=== PATIENT | female | born 1930 | race Caucasian/White ===

== ENCOUNTER 2017-07-12 13:14 | Inpatient (IN) | payer MEDICARE ==
[~2017-07-12] VITALS: Ht 154.9 cm; Wt 73.8 kg
[2017-07-12 13:28] VITALS: BP 147/70; PULSE 60; RESP 16; TEMP 98.6; O2SAT 96
[2017-07-12] MEDS ORDERED: MONT10TA4 PO (13:38)
[2017-07-12] MEDS ORDERED: CLOP75TA PO (13:38)
[2017-07-12] MEDS ORDERED: PROB1CHW5 CHEW (13:38)
[2017-07-12] MEDS ORDERED: VITA1000 PO (13:38)
[2017-07-12] MEDS ORDERED: PANT40TA3 PO (13:38)
[2017-07-12] MEDS ORDERED: ATOR20TA15 PO (13:38)
[2017-07-12] MEDS ORDERED: METO25TA3 PO (13:38)
[2017-07-12] MEDS ORDERED: ASPI81CH CHEW (13:38)
[2017-07-12] MEDS ORDERED: HYDR25TA5 PO (13:38)
[2017-07-12] MEDS ORDERED: LEVO50TA4 PO (13:38)
[2017-07-12 13:45] VITALS: O2SAT 96
[2017-07-12] MEDS ORDERED: SODIUM CHLORID 0.9% 500 ML INJ 500 ML IV ONE (13:45)
--- NOTE | 2017-07-12 14:01 | RADRPT ---
EXAM DATE/TIME: 07/12/2017 13:47 [facility] COMPARISON: No previous studies available for comparison. INDICATIONS : Heart palpatations, syncopal episode, weakness, difficulty walking. MEDICAL HISTORY : Diverticulosis. Hypercholesterolemia. Gastroesophageal reflux disease. Card iac disorders.Thyroid disease. Myocardial infarction.CHF. CAD.Hypertension. Arthritis. SURGICAL HISTORY : Pacemaker. Appendectomy. Tonsillectomy. Cardiac cath w/ stent. ENCOUNTER: Initial ACUITY: 1 day PAIN SCORE: 0/10 LOCATION: chest FINDINGS: Pacer implant on the left. The lungs are clear. The heart is minimally enlarged. The pulmonary vascularity is normal. There is n o evidence for infiltrate or failure. The portion of the bony skeleton visualized is unremarkable. CONCLUSION: Compensated cardiomegaly otherwise negative . The portion of the bony skeleton visualized is unremarkable. Board Certified Radiologist. This report was verified electronically.
[2017-07-12 14:22] LABS: AUTOMATED NEUTROPHIL # 3.6 TH/MM3 (1.8-7.7); BASOPHIL % 0.4 % (0.0-2.0); EOSINOPHIL # 0.1 TH/MM3 (0-0.4); EOSINOPHIL % 2.8 % (0.0-4.0); HEMATOCRIT 42.5 % (35.0-46.0); HEMO FLAGS DIFF FINAL; LYMPH % 15.5 % (9.0-44.0); LYMPHOCYTE # 0.7 TH/MM3 (1.0-4.8); MEAN CELL VOLUME 92.1 FL (80.0-100.0); MEAN CORPUSCULAR HEMOGLOBIN 30.5 PG (27.0-34.0); MEAN CORPUSCULAR HGB CONC 33.2 % (32.0-36.0); MONO % 7.7 % (0.0-8.0); NEUT % 73.6 % (16.0-70.0); PLATELET COUNT 181 TH/MM3 (150-450); RED BLOOD COUNT 4.61 MIL/MM3 (4.00-5.30); RED CELL DISTRIBUTION WIDTH 13.5 % (11.6-17.2); WHITE BLOOD COUNT 4.8 TH/MM3 (4.0-11.0)
[2017-07-12 14:36] LABS: CHLORIDE 99 MEQ/L (98-107); POTASSIUM 3.5 MEQ/L (3.5-5.1); SODIUM (NA) 134 MEQ/L (136-145)
[2017-07-12 14:40] LABS: ANION GAP 9 MEQ/L (5-15); BLOOD UREA NITROGEN 13 MG/DL (7-18)
--- NOTE | 2017-07-12 14:40 | RADRPT ---
EXAM DATE/TIME: 07/12/2017 13:57 [facility] COMPARISON: No previous studies available for comparison. INDICATIONS : General weakness. Dizziness. RADIATION DOSE: 66.71 CTDIvol (mGy) MEDICAL HISTORY : Cardiovascular disease. SURGICAL HISTORY : None. ENCOUNTER: Initial ACUITY: 1 day PAIN SCALE: 0/10 LOCATION: cranial TECHNIQUE: Multiple contiguous axial images were obtained of the head. Using automated exposure control and adj ustment of the mA and/or kV according to patient size, radiation dose was kept as low as reasonably a chievable to obtain optimal diagnostic quality images. DICOM format image data is available electro nically for review and comparison. FINDINGS: CEREBRUM: The ventricles are normal for age. No evidence of midline shift, mass lesion, hemorrhage or acute in farction. No extra-axial fluid collections are seen. POSTERIOR FOSSA: The cerebellum and brainstem are intact. The 4th ventricle is midline. The cerebellopontine angle i s unremarkable. EXTRACRANIAL: The visualized portion of the orbits is intact. SKULL: The calvaria is intact. No evidence of skull fracture. CONCLUSION: No acute disease. Deven Andrea Jr., MD on July 12, 2017 at 14:28 Board Certified Radiologist. This report was verified electronically.
[2017-07-12 14:41] LABS: PROTHROMBIN TIME - PATIENT 11.4 SEC (9.8-11.6)
[2017-07-12 14:43] LABS: ALT (GPT) 21 U/L (10-53); AST (GOT) 16 U/L (15-37); GLOMERULAR FILTRATION RATE 88 ML/MIN (>89)
[2017-07-12 14:45] LABS: TOTAL BILIRUBIN ADULT 0.6 MG/DL (0.2-1.0)
[2017-07-12 14:46] LABS: ALKALINE PHOSPHATASE 76 U/L (45-117); CREATINE KINASE 94 U/L (26-192)
[2017-07-12] MEDS ORDERED: ASPIRIN 81 MG CHEW TAB CHEW ONE (15:00)
--- NOTE | 2017-07-12 15:08 | PD ---
HPI Chief Complaint: General Weakness Time Seen by Provider: 13:22 Travel History International Travel<30 days: No Contact w/Intl Traveler<30days: No Traveled to known affect area: No History of Present Illness HPI Patient is an 87-year-old female who comes in complaining of bilateral leg weakness. She says since getting up this morning she has felt as if both legs were going give out on her. She says she was experiencing some muscle cramps, so she at first attributed the symptoms to that, but she continues to feel the weakness. She says the weakness is in her hips and her knees. She denies falling or hitting her head. She denies chest pain or shortness of breath. She denies nausea or vomiting. She has extensive cardiac history with multiple stents. PFS Past Medical History Arthritis: Yes Cardiovascular Problems: Yes High Cholesterol: Yes Congestive Heart Failure: Yes Coronary Artery Disease: Yes Diminished Hearing: No Gastrointestinal Disorders: Yes (Divarticulosis) GERD: Yes Hypertension: Yes Myocardial Infarction: Yes Thyroid Disease: Yes Tetanus Vaccination: Unknown Influenza Vaccination: Yes ?: Not Past Surgical History Appendectomy: Yes Cardiac Surgery: Yes (stent placement, pacemaker) Pacemaker: Yes ([id number]) Tonsillectomy: Yes Social History Alcohol Use: Yes (rarely) Tobacco Use: No Substance Use: No Allergies-Medications (Allergen,Severity, Reaction): Coded Allergies: No Known Allergies (Unverified , 07/12/17) Reported Meds & Prescriptions Reported Meds & Active Scripts Active Reported Vitamin D-1000 (Cholecalciferol) 1,000 Unit Tab 1,000 Units PO DAILY Align (Lactobacillus Rhamnosus (GG)) 10.5 Mg Chew 10.5 Mg CHEW Aspirin 81 Mg Chew 81 Mg CHEW DAILY Atorvastatin (Atorvastatin Calcium) 20 Mg Tab 20 Mg PO HS Levothyroxine (Levothyroxine Sodium) 50 Mcg Tab 50 Mcg PO DAILY Montelukast (Montelukast Sodium) 10 Mg Tab 10 Mg PO HS Pantoprazole (Pantoprazole Sodium) 40 Mg Tab 40 Mg PO DAILY Clopidogrel (Clopidogrel Bisulfate) 75 Mg Tab 75 Mg PO DAILY Review of Systems Except as stated in HPI: all other systems reviewed are Neg General / Constitutional: No: Fever, Chills Eyes: No: Blurred Vision HENT: No: Headaches, Lightheadedness Cardiovascular: No: Chest Pain or Discomfort, Palpitations Respiratory: No: Shortness of Breath Gastrointestinal: No: Nausea, Vomiting Musculoskeletal: No: Edema, Pain Skin: No Rash, No Change in Pigmentation Neurologic: Positive: Weakness Physical Exam Narrative GENERAL: Awake and alert, in no acute distress. SKIN: Focused skin assessment warm/dry. HEAD: Atraumatic. Normocephalic. EYES: Pupils equal and round. No scleral icterus. ENT: Mucous membranes pink and moist. NECK: Trachea midline. No JVD. CARDIOVASCULAR: Regular rate and rhythm. No murmur appreciated. RESPIRATORY: No accessory muscle use. Clear to auscultation. Breath sounds equal bilaterally. GASTROINTESTINAL: Abdomen soft, non-tender, nondistended. MUSCULOSKELETAL: No obvious deformities. No clubbing. No cyanosis. No edema. NEUROLOGICAL: Awake and alert. No obvious cranial nerve deficits. Motor grossly within normal limits. Normal speech. PSYCHIATRIC: Appropriate mood and affect; insight and judgment normal. Data Data Last Documented VS Vital Signs Date Time Temp Pulse Resp B/P (MAP) Pulse Ox O2 Delivery O2 Flow Rate FiO2 07/12/17 15:47 59 16 165/83 (110) 96 07/12/17 13:28 98.6 07/12/17 06:30 Nasal Cannula 2.00 Orders Orders Complete Blood Count With Diff (07/12/17 13:32) Comprehensive Metabolic Panel (07/12/17 13:32) B-Type Natriuretic Peptide (07/12/17 13:32) Ckmb (Isoenzyme) Profile (07/12/17 13:32) Troponin I (07/12/17 13:32) Act Partial Throm Time (Ptt) (07/12/17 13:32) Prothrombin Time / Inr (Pt) (07/12/17 13:32) Urinalysis - C+S If Indicated (07/12/17 13:32) Chest, Single Ap (07/12/17 13:32) Ct Brain W/O Iv Contrast(Rout) (07/12/17 13:32) Ecg Monitoring (07/12/17 13:32) Iv Access Insert/Monitor (07/12/17 13:32) Oximetry (07/12/17 13:32) Sodium Chlorid 0.9% 500 Ml Inj (Ns 500 M (07/12/17 13:45) Aspirin Chew (Aspirin Chew) (07/12/17 15:00) Heparin Inj (Heparin Inj) (07/12/17 21:15) Heparin Inj (Heparin Inj) (07/12/17 21:15) Heparin-D5w 25,000 U/250 Ml (Heparin-D5w (07/12/17 15:15) Cbc No Diff, Includes Plts (07/15/17 06:00) Occult Blood (Hemoccult) Stool (07/12/17 15:01) Electrocardiogram (07/12/17 13:22) Admit To Inpatient (07/12/17 ) Vital Signs (Adult) AMBERLY.Q4H (07/12/17 16:00) Activity Bed Rest (07/12/17 16:00) Iron Assorter / Telemetry AMBERLY.Q8H (07/12/17 16:00) Inpatient Certification (07/12/17 ) Admit Order (Ed Use Only) (07/12/17 ) Labs Laboratory Tests Test 07/12/17 14:16 07/12/17 15:43 White Blood Count 4.8 TH/MM3 Red Blood Count 4.61 MIL/MM3 Hemoglobin 14.1 GM/DL Hematocrit 42.5 % Mean Corpuscular Volume 92.1 FL Mean Corpuscular Hemoglobin 30.5 PG Mean Corpuscular Hemoglobin Concent 33.2 % Red Cell Distribution Width 13.5 % Platelet Count 181 TH/MM3 Mean Platelet Volume 7.0 FL Neutrophils (%) (Auto) 73.6 % Lymphocytes (%) (Auto) 15.5 % Monocytes (%) (Auto) 7.7 % Eosinophils (%) (Auto) 2.8 % Basophils (%) (Auto) 0.4 % Neutrophils # (Auto) 3.6 TH/MM3 Lymphocytes # (Auto) 0.7 TH/MM3 Monocytes # (Auto) 0.4 TH/MM3 Eosinophils # (Auto) 0.1 TH/MM3 Basophils # (Auto) 0.0 TH/MM3 CBC Comment DIFF FINAL Differential Comment Prothrombin Time 11.4 SEC Prothromb Time International Ratio 1.0 RATIO Activated Partial Thromboplast Time 26.0 SEC Blood Urea Nitrogen 13 MG/DL Creatinine 0.64 MG/DL Random Glucose 121 MG/DL Total Protein 7.0 GM/DL Albumin 3.6 GM/DL Calcium Level 9.1 MG/DL Alkaline Phosphatase 76 U/L Aspartate Amino Transf (AST/SGOT) 16 U/L Alanine Aminotransferase (ALT/SGPT) 21 U/L Total Bilirubin 0.6 MG/DL Sodium Level 134 MEQ/L Potassium Level 3.5 MEQ/L Chloride Level 99 MEQ/L Carbon Dioxide Level 26.0 MEQ/L Anion Gap 9 MEQ/L Estimat Glomerular Filtration Rate 88 ML/MIN Total Creatine Kinase 94 U/L Troponin I 0.42 NG/ML B-Type Natriuretic Peptide 336 PG/ML Urine Color YELLOW Urine Turbidity CLEAR Urine pH 6.5 Urine Specific [place] 1.011 Urine Protein NEG mg/dL Urine Glucose (UA) NEG mg/dL Urine Ketones NEG mg/dL Urine Occult Blood TRACE Urine Nitrite NEG Urine Bilirubin NEG Urine Leukocyte Esterase MOD Urine RBC 0-3 /hpf Urine WBC 3-5 /hpf Urine Squamous Epithelial Cells 0-5 /hpf Urine Mucus OCC /lpf Microscopic Urinalysis Comment CULT NOT INDICATED MDM Medical Decision Making Medical Screen Exam Complete: Yes Emergency Medical Condition: Yes Interpretation(s) ECG shows a paced rhythm, no ST elevation or depression. Differential Diagnosis ACS versus electrolyte abnormality versus infection versus dehydration Narrative Course Patient is an 87-year-old female comes in complaining of weakness of both lower legs. Exam shows no focal weakness, no neurologic abnormalities. IV established, labs sent. Labs show elevation in her troponin to 0.42. Patient given aspirin and started on heparin. CT head performed shows no acute abnormalities. Chest x-ray shows no acute abnormalities. Patient will be admitted for further management. Diagnosis Primary Impression: NSTEMI (non-ST elevated myocardial infarction) Admitting Information Admitting Physician Requests: Admit Condition: Stable Ana Avitia MD Jul 12, 2017 15:08
[2017-07-12 15:47] VITALS: BP 165/83; PULSE 59; RESP 16; O2SAT 96
[2017-07-12 15:55] LABS: GLUCOSE,URINE NEG (NEG); KETONE, URINE NEG (NEG); NITRITE,URINE NEG (NEG); PH, URINE 6.5 (5.0-8.5)
[2017-07-12 15:58] LABS: BLOOD, URINE TRACE (NEG); URINE COLOR YELLOW (YELLW/STRAW)
[2017-07-12 16:00] LABS: COMMENT (UR) CULT NOT INDICATED; CULTURE IF INDICATED CULT NOT INDICATED; MUCUS URINE OCC /lpf (OCC); RBC, URINE 0-3 /hpf (0-3); SQUAMOUS EPITHELIAL CELL URINE 0-5 /hpf (0-5)
[2017-07-12] MEDS: HEPARIN-D5W 25,000 U/250 ML 250 ML IV PRN (17:04)
[2017-07-12 17:07] VITALS: BP 160/69; PULSE 60; RESP 16; O2SAT 94
--- NOTE | 2017-07-12 19:00 | HHI.HP ---
HPI [facility] Primary Care Physician Non-Staff Admission Diagnosis NSTEMI Diagnoses: Travel History International Travel<30 Days: No Contact w/Intl Traveler <30 Da: No Traveled to Known Affected Are: No History of Present Illness 87-year-old white female who was in her usual state of health until earlier today when she found to be confused more than normal. Patient is a poor historian herself, history obtained mainly from ER staff. "Patient is an 87-year -old female who comes in complaining of bilateral leg weakness. She says since getting up this morning she has felt as if both legs were going give out on her. She says she was experiencing some muscle cramps, so she at first attributed the symptoms to that, but she continues to feel the weakness. She says the weakness is in her hips and her knees. She denies falling or hitting her head. She denies chest pain or shortness of breath. She denies nausea or vomiting. She has extensive cardiac history with multiple stents." ER staff she was aphasic in ED and were concerned about possible stroke. Review of Systems Except as stated in HPI: all other systems reviewed are Neg Past Family Social History Past Surgical History unable to obtain Allergies: Coded Allergies: No Known Allergies (Unverified , 07/12/17) Family History unable to obtain given pt's poor insight Social History Pt lives by herself Physical Exam Vital Signs Vital Signs Date Time Temp Pulse Resp B/P (MAP) Pulse Ox O2 Delivery O2 Flow Rate FiO2 07/12/17 17:45 07/12/17 17:07 60 16 160/69 (99) 94 07/12/17 15:47 59 16 165/83 (110) 96 07/12/17 13:45 96 07/12/17 13:28 98.6 60 16 147/70 (95) 96 Physical Exam GENERAL: This is a well-nourished, well-developed patient, in no apparent distress. SKIN: No rashes, ecchymoses or lesions. Cool and dry. HEAD: Atraumatic. Normocephalic. No temporal or scalp tenderness. EYES: Pupils equal round and reactive. Extraocular motions intact. No scleral icterus. No injection or drainage. ENT: Nose without bleeding, purulent drainage or septal hematoma. Throat without erythema, tonsillar hypertrophy or exudate. Uvula midline. Airway patent. NECK: Trachea midline. No JVD CARDIOVASCULAR: Regular rate and rhythm without murmurs, gallops, or rubs. RESPIRATORY: Clear to auscultation. Breath sounds equal bilaterally. No wheezes , rales, or rhonchi. GASTROINTESTINAL: Abdomen soft, non-tender, nondistended. No hepato-splenomegaly , or palpable masses. No guarding. MUSCULOSKELETAL: Extremities without clubbing, cyanosis, or edema. No joint tenderness, effusion, or edema noted. NEUROLOGICAL: Awake and alert. Cranial nerves II through XII intact. Motor and sensory grossly within normal limits. Five out of 5 muscle strength in all muscle groups. Normal speech. intact finger to nose BL, - rombergs sign. Laboratory Laboratory Tests Test 07/12/17 14:16 07/12/17 15:43 White Blood Count 4.8 Red Blood Count 4.61 Hemoglobin 14.1 Hematocrit 42.5 Mean Corpuscular Volume 92.1 Mean Corpuscular Hemoglobin 30.5 Mean Corpuscular Hemoglobin Concent 33.2 Red Cell Distribution Width 13.5 Platelet Count 181 Mean Platelet Volume 7.0 Neutrophils (%) (Auto) 73.6 Lymphocytes (%) (Auto) 15.5 Monocytes (%) (Auto) 7.7 Eosinophils (%) (Auto) 2.8 Basophils (%) (Auto) 0.4 Neutrophils # (Auto) 3.6 Lymphocytes # (Auto) 0.7 Monocytes # (Auto) 0.4 Eosinophils # (Auto) 0.1 Basophils # (Auto) 0.0 CBC Comment DIFF FINAL Differential Comment Prothrombin Time 11.4 Prothromb Time International Ratio 1.0 Activated Partial Thromboplast Time 26.0 Blood Urea Nitrogen 13 Creatinine 0.64 Random Glucose 121 Total Protein 7.0 Albumin 3.6 Calcium Level 9.1 Alkaline Phosphatase 76 Aspartate Amino Transf (AST/SGOT) 16 Alanine Aminotransferase (ALT/SGPT) 21 Total Bilirubin 0.6 Sodium Level 134 Potassium Level 3.5 Chloride Level 99 Carbon Dioxide Level 26.0 Anion Gap 9 Estimat Glomerular Filtration Rate 88 Total Creatine Kinase 94 Troponin I 0.42 B-Type Natriuretic Peptide 336 Urine Color YELLOW Urine Turbidity CLEAR Urine pH 6.5 Urine Specific [place] 1.011 Urine Protein NEG Urine Glucose (UA) NEG Urine Ketones NEG Urine Occult Blood TRACE Urine Nitrite NEG Urine Bilirubin NEG Urine Leukocyte Esterase MOD Urine RBC 0-3 Urine WBC 3-5 Urine Squamous Epithelial Cells 0-5 Urine Mucus OCC Microscopic Urinalysis Comment CULT NOT INDICATED Result Diagram: 07/12/17 1416 07/12/17 1416 Imaging Last Impressions Head CT 07/12/17 1332 Signed Impressions: Service Date/Time: Wednesday, July 12, 2017 13:57 - CONCLUSION: No acute disease. Deven Andrea Jr., MD Chest X-Ray 07/12/171331 Signed Impressions: Service Date/Time: Wednesday, July 12, 2017 13:47 - CONCLUSION: Compensated cardiomegaly otherwise negative . The portion of the bony skeleton visualized is unremarkable. Board Certified Radiologist. This report was verified electronically. MD Drew VTE Risk Assessment Rajendra VTE Risk Assessment: Mod/High Risk (score >= 2) Caprini Risk Assessment Model Point Value = 1 Point Value = 2 Point Value = 3 Point Value = 5 Age 41-60 Minor surgery BMI > 25 kg/m2 Swollen legs Varicose veins or History of unexplained or recurrent spontaneous Oral contraceptives or hormone replacement Sepsis (< 1 month) Serious lung disease, including pneumonia (< 1 month) Abnormal pulmonary function Acute myocardial infarction Congestive heart failure (< 1 month) History of inflammatory bowel disease Medical patient at bed rest Age 61-74 Arthroscopic surgery Major open surgery (> 45 min) Laparoscopic surgery (> 45 min) Malignancy Confined to bed (> 72 hours) Immobilizing plaster cast Central venous access Age >= 75 History of VTE Family history of VTE Factor V Leiden Prothrombin [id number] Lupus anticoagulant Anticardiolipin antibodies Elevated serum homocysteine Heparin-induced thrombocytopenia Other congenital or acquired thrombophilia Stroke (< 1 month) Elective arthroplasty Hip, pelvis, or leg fracture Acute spinal cord injury (< 1 month) Prophylaxis Regimen Total Risk Factor Score Risk Level Prophylaxis Regimen 0-1 Low Early ambulation 2 Moderate Order ONE of the following: *Sequential Compression Device (SCD) *Heparin 5000 units SQ BID 3-4 Higher Order ONE of the following medications: *Heparin 5000 units SQ TID *Enoxaparin/Lovenox 40 mg SQ daily (WT < 150 kg, CrCl > 30 mL/min) *Enoxaparin/Lovenox 30 mg SQ daily (WT < 150 kg, CrCl > 10-29 mL/min) *Enoxaparin/Lovenox 30 mg SQ BID (WT < 150 kg, CrCl > 30 mL/min) AND/OR *Sequential Compression Device (SCD) 5 or more Highest Order ONE of the following medications: *Heparin 5000 units SQ TID (Preferred with Epidurals) *Enoxaparin/Lovenox 40 mg SQ daily (WT < 150 kg, CrCl > 30 mL/min) *Enoxaparin/Lovenox 30 mg SQ daily (WT < 150 kg, CrCl > 10-29 mL/min) *Enoxaparin/Lovenox 30 mg SQ BID (WT < 150 kg, CrCl > 30 mL/min) AND *Sequential Compression Device (SCD) Assessment and Plan Assessment and Plan Worsening confusion - We'll obtain lab work including TSH, B12, lites, magnesium. CT head is negative. Consulting speech therapy for swallow and cognition evaluation - Possible stroke etiology, giving aspirin, starting fall precautions, PT/OT/ST evaluation, engaging and permissive hypertension. CT head is negative. Plan for MRI and echocardiogram and carotid evaluation for tomorrow in a.m.. Continue home medications otherwise Physician Certification 2 Midnight Certification Type: Admission for Inpatient Services Order for Inpatient Services The services are ordered in accordance with Medicare regulations or non- Medicare payer requirements, as applicable. In the case of services not specified as inpatient-only, they are appropriately provided as inpatient services in accordance with the 2-midnight benchmark. Estimated LOS (days): 2 days is the estimated time the patient will need to remain in the hospital, assuming treatment plan goals are met and no additional complications. Post-Hospital Plan: Not yet determined Carroll De La Vega MD Jul 12, 2017 19:00
[2017-07-12] MEDS ORDERED: CLOPIDOGREL 75 MG TAB PO SCH (19:15)
[2017-07-12] MEDS ORDERED: HYDROCHLOROTHIAZIDE 25 MG TAB PO SCH (19:15)
--- NOTE | 2017-07-12 19:19 | RADRPT ---
EXAM DATE/TIME: 07/12/2017 19:09 [facility] COMPARISON: CT BRAIN W/O CONTRAST, July 12, 2017, 13:57. INDICATIONS : Stroke Alert- Left sided weakness. RADIATION DOSE: 32.30 CTDIvol (mGy) This report was called by Dr. Mak to Dr. Antunez at [phone] MEDICAL HISTORY : Cardiovascular disease. Hypertension. SURGICAL HISTORY : CABG ENCOUNTER: Initial ACUITY: 1 day PAIN SCALE: Non-responsive LOCATION: Left cranial TECHNIQUE: Multiple contiguous axial images were obtained of the head. Using automated exposure control and adj ustment of the mA and/or kV according to patient size, radiation dose was kept as low as reasonably a chievable to obtain optimal diagnostic quality images. DICOM format image data is available electro nically for review and comparison. FINDINGS: CEREBRUM: The ventricles are normal for age. No evidence of midline shift, mass lesion, hemorrhage or acute in farction. No extra-axial fluid collections are seen. POSTERIOR FOSSA: The cerebellum and brainstem are intact. The 4th ventricle is midline. The cerebellopontine angle i s unremarkable. EXTRACRANIAL: The visualized portion of the orbits is intact. SKULL: The calvaria is intact. No evidence of skull fracture. CONCLUSION: 1. No acute intracranial hemorrhage. 2. No significant change compared to the prior study. Adrian Mak MD on July 12, 2017 at 19:16 Board Certified Radiologist. This report was verified electronically.
[2017-07-12 19:26] LABS: I-STAT POTASSIUM 3.3 MMOL/L (3.5-4.9)
[2017-07-12] MEDS ORDERED: SODIUM CHLOR 0.9% 1000 ML INJ 1,000 ML IV SCH (19:27)
--- NOTE | 2017-07-12 19:41 | HHI.PR ---
Subjective Remarks Spoke w/ cardiology Dr. Smith, recommended pt be admitted to [facility] with cardiology consulted - relayed this to Dr. Avitia. Relayed to fellow Hospitalist [facility] team who agreed to have hospitalist at [facility] admit patient. Sometime after, I was notified that a stroke alert on the patient had been called since she began experiencing focal weakness there. To ensure the patient was going to be evaluated by hospitalist, I spoke Dr. Torrez and Clarissa Cutler, JAI (stationed at [facility]) to relay to Dr. Gómez, window shade installer, that patient needs to be fully evaluated by their team. They vocalized understanding. Objective Vital Signs Date Time Temp Pulse Resp B/P (MAP) Pulse Ox O2 Delivery O2 Flow Rate FiO2 07/12/17 17:45 07/12/17 17:07 60 16 160/69 (99) 94 07/12/17 15:47 59 16 165/83 (110) 96 07/12/17 13:45 96 07/12/17 13:28 98.6 60 16 147/70 (95) 96 I/O 07/11/17 07/11/17 07/11/17 07/12/17 07/12/17 07/12/17 06:59 14:59 22:59 06:59 14:59 22:59 Intake Total 500 ml Balance 500 ml Intake IV Total 500 ml Result Diagram: 07/12/17 1416 07/12/17 1416 Carroll De La Vega MD Jul 12, 2017 19:41
--- NOTE | 2017-07-12 19:48 | RADRPT ---
EXAM DATE/TIME: 07/12/2017 19:09 [facility] COMPARISON: No previous studies available for comparison. INDICATIONS : Stroke Alert- Left sided weakness. IV CONTRAST: 77 cc Omnipaque 350 (iohexol) IV RADIATION DOSE: 26.97 CTDIvol (mGy) ; Combined studies MEDICAL HISTORY : Cardiovascular disease. Hypertension. Myocardial infarction. SURGICAL HISTORY : CABG Appendectomy.Pacemaker. ENCOUNTER: Initial ACUITY: 1 day PAIN SCALE: Non-responsive LOCATION: Left cranial TECHNIQUE: Volumetric scanning was performed using a multi-row detector CT scanner. The data was post processed with a variety of visualization algorithms including full volume maximum intensity projection, multi -planar sliding thin slab reformation, curved planar reformation, and surface rendering techniques. Using automated exposure control and adjustment of the mA and/or kV according to patient size, radiat ion dose was kept as low as reasonably achievable to obtain optimal diagnostic quality images. DICO M format image data is available electronically for review and comparison. FINDINGS: There is excellent visualization of the major intracranial arteries out to the second-order branch ve ssels. There is no evidence for aneurysm, vessel truncation or stenosis, and no evidence for vascula r malformation. There is a hypoplastic A1 segment on the left. There is a patent right and left poste rior commuting artery. The basilar artery and posterior cerebral vessels are patent. CONCLUSION: Unremarkable CTA of the brain. Adrian Mak MD on July 12, 2017 at 19:41 Board Certified Radiologist. This report was verified electronically.
[2017-07-12 20:00] VITALS: BP 188/87; PULSE 60; RESP 25; TEMP 98; O2SAT 98
[2017-07-12 20:14] LABS: FREE T4 1.24 NG/DL (0.76-1.46); HDL CHOLESTEROL 37.9 MG/DL (40.0-60.0)
[2017-07-12 20:22] LABS: APTT (PATIENT) 31.1 SEC (24.3-30.1); PROTHROMBIN TIME - PATIENT 11.6 SEC (9.8-11.6)
--- NOTE | 2017-07-12 20:28 | RADRPT ---
EXAM DATE/TIME: 07/12/2017 19:09 [facility] COMPARISON: No previous studies available for comparison. INDICATIONS : Stroke Alert- Left sided weakness. IV CONTRAST: 80 cc Omnipaque 350 (iohexol) IV RADIATION DOSE: 26.97 CTDIvol (mGy) ; Combined studies MEDICAL HISTORY : Hypertension. Myocardial infarction. Hypertension. SURGICAL HISTORY : CABG Pacemaker.Appendectomy. ENCOUNTER: Initial ACUITY: 1 day PAIN SCALE: Non-responsive LOCATION: Left cranial Elevated flow velocities and ICA/CCA ratios have been found to correlate with increased degrees of vessel stenosis, calculated as percentage of diameter relative to a normal segment of distal ICA/CCA. TECHNIQUE: Volumetric scanning was performed using a multirow detector CT scanner. The data was post processed with a variety of visualization algorithms including full-volume maximum intensity projection, multip lanar sliding thin-slab reformation, curved-planar reformation, and surface-rendering techniques. Us ing automated exposure control and adjustment of the mA and/or kV according to patient size, radiatio n dose was kept as low as reasonably achievable to obtain optimal diagnostic quality images. DICOM f ormat image data is available electronically for review and comparison. FINDINGS: AORTIC ARCH: There is a three-vessel origin of the great vessels from the aorta. No evidence of ostial narrowing. RIGHT CAROTID: The common carotid artery is intact. There are calcified plaques at the proximal right internal carot id artery. However no focal or high-grade stenosis is seen. There is flow in the internal and externa l vessels. There is some tortuosity of the right internal carotid artery.. LEFT CAROTID: The common carotid artery is intact. There are some calcified plaques at the bifurcation. There is fl ow in the internal and external vessels. No focal high-grade stenosis. VERTEBRALS: The vertebral arteries have a symmetric diameter. No stenotic lesions are seen. CONCLUSION: 1. Calcified plaques are seen at both bifurcations. 2. No focal or significant stenosis involving the internal carotid arteries. Adrian Mak MD on July 12, 2017 at 20:24 Board Certified Radiologist. This report was verified electronically.
[2017-07-12] MEDS ORDERED: IOHEXOL 350 MG/ML 10 ML VIAL (for RAD DIAG) IVCONTRAST ONE (20:29)
[2017-07-12] MEDS ORDERED: METOPROLOL TARTRATE 25 MG TAB PO SCH (21:00)
[2017-07-12] MEDS ORDERED: HEPARIN SODIUM - IV 10,000 UNITS/10 ML VIAL IV PUSH PRN ×2 (21:15)
[2017-07-12 22:00] VITALS: PULSE 60
--- NOTE | 2017-07-12 22:20 | HHI.HP ---
HPI [facility] Primary Care Physician Non-Staff Admission Diagnosis NSTEMI Diagnoses: Travel History International Travel<30 Days: No Contact w/Intl Traveler <30 Da: No Traveled to Known Affected Are: No History of Present Illness woke up 3:00a.m all ok 10:30a.m weak in legs and had difficulty getting out of bed usually juist swing over without problem then within one hour had trouble more and more and got to hospital within one to 2 hrs no pain, no numbness no tingling but never improved fingersips on right hand always numb for [facility] no other weakness always short of breath- has pulmonary htn no other symptoms plane ride monday night- 4 hrs plane ride- never got up not on anticoagulation at home , only 81mg and plavix did have gi bleed while on anticoagulation and was thus off it - several years ago upon arrival to [address], nurse noted facial droop to left side and left LE weakness and called stroke alert daughter also noted some slurred speech and facial droop while in [place] still feelign worse with overall weakness but speech is normal Past Family Social History Past Medical History htn cad- 4 stents pulmonary htn asthma hypothyroidism non hodgkins lymphoma- diagnosed 10yrs ago, was treated with rotuxin x 1, and had follow up scans done and has small spots here and then but nothing big enough to treat Past Surgical History appendectomy at 19yo tonsilectomy at 3yo wedge resection of right lung lower left slaivary gland area mass that was removed- and thats how non hogdkins was diagnosed Allergies: Coded Allergies: No Known Allergies (Unverified , 07/12/17) Family History parkinsons, diabetes- father - in 70s alzeimers, macular degneration, htn- mother - passed at 92 Social History never smokes no etoh no drugs lives by herself [place], [place], still driving Physical Exam Vital Signs Vital Signs Date Time Temp Pulse Resp B/P (MAP) Pulse Ox O2 Delivery O2 Flow Rate FiO2 07/12/17 17:45 07/12/17 17:07 60 16 160/69 (99) 94 07/12/17 15:47 59 16 165/83 (110) 96 07/12/17 13:45 96 07/12/17 13:28 98.6 60 16 147/70 (95) 96 07/12/17 06:30 97 Nasal Cannula 2.00 Physical Exam GENERAL: This is a well-nourished, well-developed patient, in no apparent distress. SKIN: No rashes, ecchymoses or lesions. Cool and dry. HEAD: Atraumatic. Normocephalic. No temporal or scalp tenderness. EYES: Pupils equal round and reactive. Extraocular motions intact. No scleral icterus. No injection or drainage. ENT: Nose without bleeding, purulent drainage or septal hematoma. Throat without erythema, tonsillar hypertrophy or exudate. Uvula midline. Airway patent. NECK: Trachea midline. No JVD or lymphadenopathy. Supple, nontender, no meningeal signs. CARDIOVASCULAR: Regular rate and rhythm without murmurs, gallops, or rubs. RESPIRATORY: Clear to auscultation. Breath sounds equal bilaterally. No wheezes , rales, or rhonchi. GASTROINTESTINAL: Abdomen soft, non-tender, nondistended. No hepato-splenomegaly , or palpable masses. No guarding. MUSCULOSKELETAL: Extremities without clubbing, cyanosis, or edema. No joint tenderness, effusion, or edema noted. No calf tenderness. Negative Homans sign bilaterally. NEUROLOGICAL: Awake and alert. Cranial nerves II through XII intact. Motor and sensory grossly within normal limits. Five out of 5 muscle strength in all muscle groups. Normal speech. Laboratory Laboratory Tests Test 07/12/17 14:16 07/12/17 15:43 07/12/17 19:06 07/12/17 19:10 White Blood Count 4.8 Red Blood Count 4.61 Hemoglobin 14.1 Hematocrit 42.5 Mean Corpuscular Volume 92.1 Mean Corpuscular Hemoglobin 30.5 Mean Corpuscular Hemoglobin Concent 33.2 Red Cell Distribution Width 13.5 Platelet Count 181 Mean Platelet Volume 7.0 Neutrophils (%) (Auto) 73.6 Lymphocytes (%) (Auto) 15.5 Monocytes (%) (Auto) 7.7 Eosinophils (%) (Auto) 2.8 Basophils (%) (Auto) 0.4 Neutrophils # (Auto) 3.6 Lymphocytes # (Auto) 0.7 Monocytes # (Auto) 0.4 Eosinophils # (Auto) 0.1 Basophils # (Auto) 0.0 CBC Comment DIFF FINAL Differential Comment Prothrombin Time 11.4 11.6 Prothromb Time International Ratio 1.0 1.0 Activated Partial Thromboplast Time 26.0 31.1 Blood Urea Nitrogen 13 Creatinine 0.64 Random Glucose 121 Total Protein 7.0 Albumin 3.6 Calcium Level 9.1 Alkaline Phosphatase 76 Aspartate Amino Transf (AST/SGOT) 16 Alanine Aminotransferase (ALT/SGPT) 21 Total Bilirubin 0.6 Sodium Level 134 Potassium Level 3.5 Chloride Level 99 Carbon Dioxide Level 26.0 Anion Gap 9 Estimat Glomerular Filtration Rate 88 Total Creatine Kinase 94 Troponin I 0.42 B-Type Natriuretic Peptide 336 Urine Color YELLOW Urine Turbidity CLEAR Urine pH 6.5 Urine Specific Reinbeck 1.011 Urine Protein NEG Urine Glucose (UA) NEG Urine Ketones NEG Urine Occult Blood TRACE Urine Nitrite NEG Urine Bilirubin NEG Urine Leukocyte Esterase MOD Urine RBC 0-3 Urine WBC 3-5 Urine Squamous Epithelial Cells 0-5 Urine Mucus OCC Microscopic Urinalysis Comment CULT NOT INDICATED Bedside Hemoglobin 13.3 Bedside Hematocrit 39.0 Erythrocyte Sedimentation Rate 7 Bedside Sodium 134 Bedside Potassium 3.3 Bedside Chloride 98 Bedside Blood Urea Nitrogen 10 Bedside Creatinine 0.6 Bedside Glucose 99 Triglycerides Level 112 Cholesterol Level 84 LDL Cholesterol 24 HDL Cholesterol 37.9 Cholesterol/HDL Ratio 2.21 Free Thyroxine 1.24 Thyroid Stimulating Hormone 3rd Gen 1.610 Result Diagram: 07/12/17141507/12/171415 Caprini VTE Risk Assessment Caprini VTE Risk Assessment: Mod/High Risk (score >= 2) Caprini Risk Assessment Model Point Value = 1 Point Value = 2 Point Value = 3 Point Value = 5 Age 41-60 Minor surgery BMI > 25 kg/m2 Swollen legs Varicose veins or History of unexplained or recurrent spontaneous Oral contraceptives or hormone replacement Sepsis (< 1 month) Serious lung disease, including pneumonia (< 1 month) Abnormal pulmonary function Acute myocardial infarction Congestive heart failure (< 1 month) History of inflammatory bowel disease Medical patient at bed rest Age 61-74 Arthroscopic surgery Major open surgery (> 45 min) Laparoscopic surgery (> 45 min) Malignancy Confined to bed (> 72 hours) Immobilizing plaster cast Central venous access Age >= 75 History of VTE Family history of VTE Factor V Leiden Prothrombin [id number] Lupus anticoagulant Anticardiolipin antibodies Elevated serum homocysteine Heparin-induced thrombocytopenia Other congenital or acquired thrombophilia Stroke (< 1 month) Elective arthroplasty Hip, pelvis, or leg fracture Acute spinal cord injury (< 1 month) Prophylaxis Regimen Total Risk Factor Score Risk Level Prophylaxis Regimen 0-1 Low Early ambulation 2 Moderate Order ONE of the following: *Sequential Compression Device (SCD) *Heparin 5000 units SQ BID 3-4 Higher Order ONE of the following medications: *Heparin 5000 units SQ TID *Enoxaparin/Lovenox 40 mg SQ daily (WT < 150 kg, CrCl > 30 mL/min) *Enoxaparin/Lovenox 30 mg SQ daily (WT < 150 kg, CrCl > 10-29 mL/min) *Enoxaparin/Lovenox 30 mg SQ BID (WT < 150 kg, CrCl > 30 mL/min) AND/OR *Sequential Compression Device (SCD) 5 or more Highest Order ONE of the following medications: *Heparin 5000 units SQ TID (Preferred with Epidurals) *Enoxaparin/Lovenox 40 mg SQ daily (WT < 150 kg, CrCl > 30 mL/min) *Enoxaparin/Lovenox 30 mg SQ daily (WT < 150 kg, CrCl > 10-29 mL/min) *Enoxaparin/Lovenox 30 mg SQ BID (WT < 150 kg, CrCl > 30 mL/min) AND *Sequential Compression Device (SCD) Assessment and Plan Assessment and Plan CVA - etiology- PFO with DVT vs Afib vs cholesterol elevated troponin- no chest pains; r/o PE recent ptrolonged travel- r/o DVT and PE hx of pulmonary hypertension Physician Certification Order for Inpatient Services The services are ordered in accordance with Medicare regulations or non- Medicare payer requirements, as applicable. In the case of services not specified as inpatient-only, they are appropriately provided as inpatient services in accordance with the 2-midnight benchmark. days is the estimated time the patient will need to remain in the hospital, assuming treatment plan goals are met and no additional complications. Yasmeen Gómez MD Jul 12, 2017 22:20
[2017-07-12] MEDS ORDERED: RESP: ALBUTEROL 2.5 MG/IPRATROPIUM 0.5 MG NEB (PRN) NEB (22:30)
[2017-07-12 23:23] LABS: APTT (PATIENT) 44.1 SEC (24.3-30.1)
--- NOTE | 2017-07-12 23:43 | RADRPT ---
EXAM DATE/TIME: 07/12/2017 23:03 [facility] COMPARISON: No previous studies available for comparison. INDICATIONS : Bilateral leg swelling. MEDICAL HISTORY : Myocardial infarction. Congestive heart failure. Hypercholesterolemia. Thyroid disease. Coronary maulik ry disease. Hypertension. Diverticulosis. Gastroesophageal reflux disease. Arthritis. SURGICAL HISTORY : Tonsillectomy.Pacemaker. Appendectomy. ENCOUNTER: Initial ACUITY: 1 day PAIN SCORE: 0/10 LOCATION: Bilateral legs. TECHNIQUE: Venous ultrasound of the left and right leg was performed from the inguinal ligament to the proximal calf. Real-time, color Doppler and spectral tracing, compression and augmentation techniques were us ed. FINDINGS: RIGHT LEG: There is normal compressibility of the deep venous system from the inguinal region to the proximal ca lf. No echogenic clot is seen in the lumen of the common femoral, femoral, popliteal, and posterior tibial veins. There is a normal response of the venous system to proximal and distal augmentation an d respiration. LEFT LEG: There is normal compressibility of the deep venous system from the inguinal region to the proximal ca lf. No echogenic clot is seen in the lumen of the common femoral, femoral, popliteal, and posterior tibial veins. There is a normal response of the venous system to proximal and distal augmentation an d respiration. There is an oblong hypoechoic mass/collection in the left popliteal space consistent w ith small Crane's cyst CONCLUSION: Left knee Crane's cyst. No evidence of DVT in either leg Byron Enriquez MD on July 12, 2017 at 23:41 Board Certified Radiologist. This report was verified electronically.
--- NOTE | 2017-07-12 23:53 | MB ---
cc: YULY KURTZ DATE OF CONSULTATION: 07/12/2017 HISTORY OF PRESENT ILLNESS: The patient is an 87 year-old woman with a history of hypertension, hypercholesterolemia, five cardiac stents, pacemaker, pulmonary hypertension, lymphoma, not currently being treated but she does have a lump on the right side of her neck and in the axillary region also she tells me, she has some lymphoma there but no where else that she knows of. She has had some antibiotics or chemo in the past she tells me. Nevertheless she was admitted today with an DC, non STEMI. She was evidently found to be confused more than normal. She came in with bilateral leg weakness, got up, both legs were giving out on her. Weakness in her hips and knees, said to be a normal exam. She was taking a baby aspirin at home. Motor was noted to be "grossly within normal limits with normal speech." Sometime down in [facility], the daughter noted she had a left facial droop. She noticed both of her legs felt very heavy and she came into the hospital this morning. She didn't notice that she was weak on the left side, but still doesn't at this time, however. REVIEW OF SYSTEMS: She denies any diabetes, A-fib, Coumadin, renal, hepatic disease, thyroid disease, lupus, ulcer, known seizure, prior strokes. SOCIAL HISTORY: She is not a smoker or drinker, lives by herself. FAMILY HISTORY: Negative for cancer, seizure or stroke. MEDICATIONS AT HOME: 1. She takes vitamin D. 2. Lactobacillus. 3. Hydrochlorothiazide. 4. 81 of aspirin. 5. Atorvastatin 6. Thyroid medicine. 7. Montelukast. 8. Metoprolol. 9. Protonix. 10. Plavix 75 milligrams a day. PHYSICAL EXAMINATION: Sinus rhythm, afebrile. 160/69, 16, 60. There were no carotid bruits. Heart: Regular rhythm. I did not detect a murmur. Pupils were equal, visual barnes full, extraocular movements intact without nystagmus. There is a miniaml left facial droop when she moves, fairly symmetrically, normal sensation. Tongue was midline. There is a positive left shift. She had normal strength in right upper and lower extremities. Left upper extremity is at 5-/5. Left lower extremity, straight leg raising is weak about a 4+/5. Tibialis anterior, leg extensions and holding her knee up is 5/5. Toe was equivocal on the left, downgoing on the right. DTRs are absent throughout. Pinprick was intact throughout. Double simultaneous stimuli sensation was intact in the bilateral lower extremities. Speech is fluent, she is not aphasic. LABORATORY DATA: CBC is normal. UA is negative. Moderate leuko-esterase. Basic metabolic profile has been normal. LFTs normal. Troponin 0.42. Total protein, albumin normal. Coags normal. IMAGING STUDIES: CT scan of the brain is negative, here at the stroke alert and was negative earlier today. Chest x-ray: Negative. MEDICATIONS The patient has been on heparin for about two hours before I was called for the stroke alert. IV heparin. She is on Synthroid here, Singulair, Plavix, hydrodiuril, Protonix. She got 324 of aspirin. I was told she did not get any bolus of heparin. IMPRESSION Some left-sided weakness. I am not sure if her symptoms did not start this morning, however, they have been somewhat slowly getting worse. Will see what her PTT is as far as getting TPA, but I cannot be certain that these symptoms did not start this morning when she woke up. ADDENDUM I did talk to the patient's daughter and she says that at about 11 o'clock this morning she noticed some left facial droop so this has been going on least 8 hours, so she is not going to be a t-PA candidate. Her current NIH Stroke Scale is a 5. MD JACKIE Swift/DULCE /7:22 PM /9:36 AM
[2017-07-13] VITALS (8 sets, daily range): BP systolic 138–160; BP diastolic 70–96; PULSE 60–62; RESP 20–29; TEMP 97.5–98.7; O2SAT 97–99
--- NOTE | 2017-07-13 07:41 | HHI.PR ---
Subjective Remarks feels better Objective Vital Signs Date Time Temp Pulse Resp B/P (MAP) Pulse Ox O2 Delivery O2 Flow Rate FiO2 07/13/17 04:00 98.0 60 20 149/70 (96) 98 07/13/17 02:00 60 07/13/17 00:00 97.6 60 25 148/96 (113) 99 07/13/17 00:00 60 07/12/17 22:00 60 07/12/17 20:00 98.0 60 25 188/87 (120) 98 07/12/17 17:45 07/12/17 17:07 60 16 160/69 (99) 94 07/12/17 15:47 59 16 165/83 (110) 96 07/12/17 13:45 96 07/12/17 13:28 98.6 60 16 147/70 (95) 96 I/O 07/12/17 07/12/17 07/12/17 07/13/17 07/13/17 07/13/17 07:00 15:00 23:00 07:00 15:00 23:00 Intake Total 500 ml Balance 500 ml Intake IV Total 500 ml # Voids 3 Result Diagram: 07/12/17 1416 07/12/17 1416 Objective Remarks vff face sym nle lue and near nl lle on bedpan nl speech Assessment and Plan Assessment and Plan im[p on hep ctax2 nl ct neg fu echo and holter ldl nl will dw cards suspect small cardioembolism [place] was already on plavix hx 5 stents Crow Antunez MD Jul 13, 2017 07:41
[2017-07-13] MEDS: CHOLECALCIFEROL (VIT D3) 1000 UNIT TAB PO SCH (09:00)
[2017-07-13 09:01] LABS: APTT (PATIENT) 55.1 SEC (24.3-30.1)
--- NOTE | 2017-07-13 10:05 | OTSOAPIP ---
TIME SESSION COMPLETED: 10:04 TREATMENT TIME: 0 MINS. CHART REVIEWED. RECEIVED ORDERS FOR OT CONSULT FROM DR. VILLANUEVA. PT HAS SINCE TRANSFERRED TO INTENSIVE CARE WITH A CHANGE IN STATUS. WILL REQUIRE NEW ORDERS FOR OT WHEN STABLE. WILL SIGN OFF. Therapist: ZARA GORDON OT/L Signature on file
[2017-07-13] MEDS: SODIUM CHLOR 0.9% 1000 ML INJ 1,000 ML IV SCH (12:00)
--- NOTE | 2017-07-13 12:44 | ECHRPT ---
Indication: CONCLUSIONS Normal left ventricular size. Wall thickness is normal. The left ventricular systolic function is low normal with an estimated ejection fraction in the rang e of 50- 55%. Moderate mitral valve regurgitation. Severe thickening of the mitral valve leaflets. Mitral annular calcification is present. Aortic valve sclerosis is present. There is mild tricuspid valve regurgitation. There is estimated severe pulmonary hypertension present ( > 70 mmHg). BP: 149 / 70 HR: 60 Rhythm: MEASUREMENTS (Male / Female) Normal Values Technical Quality: 2D ECHO LV Diastolic Diameter PLAX 4.8 cm 4.2 - 5.9 / 3.9 - 5.3 cm LV Systolic Diameter PLAX 3.7 cm IVS Diastolic Thickness 1.2 cm 0.6 - 1.0 / 0.6 - 0.9 cm LVPW Diastolic Thickness 0.8 cm 0.6 - 1.0 / 0.6 - 0.9 cm LV Relative Wall Thickness 0.4 RV Internal Dim ED PLAX 2.2 cm LA Systolic Diameter LX 3.5 cm 3.0 - 4.0 / 2.7 - 3.8 cm M-MODE Aortic Root Diameter MM 3.1 cm AV Cusp Separation MM 1.7 cm DOPPLER AV Peak Velocity 177.0 cm/s AV Peak Gradient 12.5 mmHg AV Mean Gradient 7.0 mmHg AV Velocity Time Integral 45.6 cm LVOT Peak Velocity 102.0 cm/s LVOT Peak Gradient 4.2 mmHg LVOT Velocity Time Integral 25.7 cm MV Peak Velocity 138.0 cm/s MV Peak Gradient 7.6 mmHg MV Mean Velocity 74.4 cm/s MV Mean Gradient 3.0 mmHg MR Peak Velocity 566.0 cm/s MR Peak Gradient 128.1 mmHg Mitral E Point Velocity 110.0 cm/s Mitral A Point Velocity 112.0 cm/s Mitral E to A Ratio 1.0 LV E' Lateral Velocity 5.3 cm/s Mitral E to LV E' Lateral Ratio 20.9 LV E' Septal Velocity 5.0 cm/s Mitral E to LV E' Septal Ratio 22.0 TR Peak Velocity 418.0 cm/s TR Peak Gradient 69.9 mmHg Right Atrial Pressure 5.0 mmHg Pulmonary Artery Systolic Pressu 74.9 mmHg Right Ventricular Systolic Press 74.9 mmHg FINDINGS LEFT VENTRICLE Normal left ventricular size. Wall thickness is normal. The left ventricular systolic function is low normal with an estimated ejection fraction in the rang e of 50- 55%. RIGHT VENTRICLE Normal right ventricular size and systolic function. LEFT ATRIUM The left atrial size is normal. RIGHT ATRIUM The right atrial size is normal. ATRIAL SEPTUM Normal atrial septal thickness without atrial level shunting by limited color doppler interrogation. AORTA The aortic root and proximal ascending aorta are normal in size on limited imaging. MITRAL VALVE Moderate mitral valve regurgitation. Severe thickening of the mitral valve leaflets. Mitral annular calcification is present. AORTIC VALVE Aortic valve sclerosis is present. TRICUSPID VALVE There is mild tricuspid valve regurgitation. There is estimated severe pulmonary hypertension present ( > 70 mmHg). PULMONARY VALVE No pulmonary valve regurgitation or stenosis. VESSELS The inferior vena cava is normal in size. PERICARDIUM No pericardial effusion. Amos Hennessy MD, FACC (Electronically Signed) Final Date:13 July 2017 12:43
[2017-07-13] MEDS ORDERED: IOHEXOL 350 MG/ML 10 ML VIAL (for RAD DIAG) IVCONTRAST ONE (12:55)
--- NOTE | 2017-07-13 13:10 | RADRPT ---
EXAM DATE/TIME: 07/13/2017 12:39 [facility] COMPARISON: CTA BRAIN W 3D RECON, July 12, 2017, 19:09. INDICATIONS : Chest pain. IV CONTRAST: 70 cc Omnipaque 350 (iohexol) IV RADIATION DOSE: 16.82 CTDIvol (mGy) MEDICAL HISTORY : Cardiovascular disease. Hypertension. Pulmonary hypertension, lymphoma SURGICAL HISTORY : Appendectomy. Coronary stents ENCOUNTER: Initial ACUITY: 1 day PAIN SCALE: 3/10 LOCATION: Bilateral chest TECHNIQUE: Volumetric scanning of the chest was performed using a pulmonary embolism protocol MIP images were re constructed. Using automated exposure control and adjustment of the mA and/or kV according to patien t size, radiation dose was kept as low as reasonably achievable to obtain optimal diagnostic quality images. DICOM format image data is available electronically for review and comparison. Follow-up recommendations for detected pulmonary nodules are based at a minimum on nodule size and pa tient risk factors according to Fleischner Society Guidelines. FINDINGS: The examination is of good diagnostic quality. No pulmonary embolus is identified. The heart is enlarged. There is atherosclerotic plaquing and coronary arteries. No significant hilar or mediastinal adenopathy is seen. There are multiple abnormal nodes seen within the right axilla. There are nodes measuring up to 2.6 x 1.8 cm. This is highly suspicious for malignancy. The pulmonary parenchyma demonstrates a small amount of fluid loculated in the minor fissure on the r ight. There is minimal basilar effusion on the right. There is scarring in both lower lobes. Note is made of some pulmonary sutures within the right middle lobe. The visualized bony structures are grossly intact. CONCLUSION: 1. No pulmonary embolus is identified. 2. There are multiple enlarged, abnormal nodes seen within the right axilla suspicious for malignancy . These are abnormal in both size and number. 3. Small amount of fluid loculated in the fissure on the right. 4. COPD changes. Francis Billingsley MD on July 13, 2017 at 13:07 Board Certified Radiologist. This report was verified electronically.
--- NOTE | 2017-07-13 13:52 | EKG ---
Date Performed: 07/12/2017 Time Performed: 13:22:04 PTAGE: 87 years EKG: ELECTRONIC ATRIAL PACEMAKER LEFT AXIS DEVIATION PATTERN CONSISTENT WITH PULMONARY DISEASE A BNORMAL ECG Compared to PREVIOUS TRACING , the left axis deviation is new and the paced atrial rhythm is new but otherwise no serial change. PREVIOUS TRACIN06/05/2002 10.47 DOCTOR: Michelle Stearns Interpretating Date/Time 07/13/2017 13:50:53
--- NOTE | 2017-07-13 13:52 | EKG ---
Date Performed: 07/12/2017 Time Performed: 18:51:20 PTAGE: 87 years EKG: Sinus rhythm Leftward axis Borderline ECG Compared to PREVIOUS TRACING , the atrial rhythm is probably paced and there has been no significant serial change since the prior tracing. PREVIOUS TRACIN07/12/2017 13.22 DOCTOR: Michelle Stearns Interpretating Date/Time 07/13/2017 13:51:42
--- NOTE | 2017-07-13 16:21 | MB ---
cc: GLENYS LOMBARDI DATE OF CONSULTATION: 07/13/2017 REASON FOR CONSULTATION: Ms. Andersen is an 87 white female who developed lower extremity weakness yesterday morning. She went to the hospital and was subsequently noted to have left facial droop and left lower extremity weakness. She also had slurred speech yesterday. She was diagnosed with acute stroke. She has history coronary artery disease and underwent stenting of the left circumflex artery and left anterior descending carotid artery which was preformed in November 2011 using <<2:05>> MCV drug-eluting stents. The patient has been on aspirin and clopidogrel since that time. PAST MEDICAL HISTORY: The past medical history is positive for coronary disease as Above. Hypertension Dyslipidemia COPD GI bleeding. Irritable bowel. Hypothyroid disease. Lymphoma Peptic ulcer disease Pulmonary nodule PAST SURGICAL HISTORY 8 History of appendectomy cataract surgery partial lung segmental resection. Pacemaker placement for complete heart block Thoracotomy. MEDICATIONS AT HOME Include 1. Plavix. 2. Baby aspirin. 3. Protonix. 4. Metoprolol 5. <<4:34>> 6. Atorvastatin. 7. Hydrochlorothiazide. 8. lactobacillus. 9. Vitamin D. ALLERGIES None. SOCIAL HISTORY The patient does not smoke. She does not drink alcohol excessively. ILLNESSES Negative for heart disease. Systems otherwise negative. PHYSICAL EXAMINATION Blood pressure 138/74, pulse 60 and regular. HEAD, EYES, EARS, NOSE, AND THROAT: Negative. NECK: No bruits. LUNGS: Clear. HEART: Regular with no murmur, gallop or rub. No bruits. EXTREMITIES: Without edema. Pulses noted grossly. Marked left lower extremity weakness. EKG was reviewed and showed the system was removed and atrial pacing left axis, no acute changes. LABORATORY DATA Hemoglobin 14.1, sodium 30.3. Creatinine 0.6. CK 88 and 83, troponin 0.78 and 0.72, LDL 24, HDL <<6:59>> . Thyroid stimulating hormone 1.6. Neck CT with no stenosis of carotid arteries. Head CT with no acute disease. Echocardiogram showed preserved left systolic function with an ejection fraction of 50-55%, moderate mitral regurgitation. Mitral annular classification, aortic sclerosis without stenosis and mild tricuspid vegetation with severe pulmonary hypertension with pulmonary artery pressure over 70 mmHg. DIAGNOSIS 1. CVA with to develop troponin is possible [id number] myocardial function. 2. Coronary disease. History of coronary stenting. 3. Preserved left ventricular systolic function. 4. Severe pulmonary hypertension 5. Asthma 6. Hypertension 7. Dyslipidemia. DISPOSITION Mrs. Andersen will be monitored on telemetry. Her echocardiogram shows preserved left upper systolic function and no segmental wall motion abnormalities. Her troponin is not trending, At this time there is no clear evidence of myocardial infarction. Her EKG shows no acute changes. She has not had any angina or heart failure symptoms. I recommended we obtain a VQ scan to evaluated for pulmonary and she recently had a prolonged travel. She developed likely embolic stroke while on aspirin and clopidogrel. There is no evidence of atrial fibrillation at this time. Should be monitored on telemetry. Cardiac stents were placed in 2011. If recommended by neurology we can discontinue clopidogrel, continue aspirin and start her on warfarin. She is planning to travel back to [place] within two weeks. She will need to follow up with her lan specialist in [place] shortly after arrival. MD CAPRICE Hneriquez/jose guadalupe /12:58 PM /3:22 PM
[2017-07-13] MEDS: HEPARIN-D5W 25,000 U/250 ML 250 ML IV PRN (17:05)
--- NOTE | 2017-07-13 18:27 | HHI.PR ---
Subjective Remarks The patient is awake - family at bedside Denies cp/sob denies fevers or chills Family states patient's left side is slightly weak. BP elevated into the 160's systolic Objective Vitals Vital Signs Date Time Temp Pulse Resp B/P (MAP) Pulse Ox O2 Delivery O2 Flow Rate FiO2 07/13/17 16:00 97.7 60 20 154/70 (98) 97 07/13/17 12:00 98.7 60 21 160/92 (114) 99 07/13/17 08:00 97.5 60 29 138/74 (95) 98 07/13/17 07:00 98 Room Air 07/13/17 04:00 98.0 60 20 149/70 (96) 98 07/13/17 02:00 60 07/13/17 00:00 97.6 60 25 148/96 (113) 99 07/13/17 00:00 60 07/12/17 22:00 60 07/12/17 20:00 98.0 60 25 188/87 (120) 98 I/O 07/12/17 07/12/17 07/12/17 07/13/17 07/13/17 07/13/17 06:59 14:59 22:59 06:59 14:59 22:59 Intake Total 500 ml Balance 500 ml Intake IV Total 500 ml # Voids 3 Result Diagram: 07/12/17 1416 07/12/17 [address] Angiography 07/13/17 0000 Signed Impressions: Service Date/Time: July 12:39 - CONCLUSION: 1. No pulmonary embolus is identified. 2. There are multiple enlarged, abnormal nodes seen within the right axilla suspicious for malignancy. These are abnormal in both size and number. 3. Small amount of fluid loculated in the fissure on the right. 4. COPD changes. Francis Billingsley MD Head CT [id number]/12/171331 Signed Impressions: Service Date/Time: Wednesday, July 12, 2017 13:57 - CONCLUSION: No acute disease. Deven Andrea Jr., MD Chest X-Ray [id number]/12/[id number] Signed Impressions: Service Date/Time: Wednesday, July 12, 2017 13:47 - CONCLUSION: Compensated cardiomegaly otherwise negative . The portion of the bony skeleton visualized is unremarkable. Board Certified Radiologist. This report was verified electronically. Neck CTA 07/12/17 0000 Signed Impressions: Service Date/Time: Wednesday, July 12, 2017 19:09 - CONCLUSION: 1. Calcified plaques are seen at both bifurcations. 2. No focal or significant stenosis involving the internal carotid arteries. Adrian Mak MD Lower Extremity Ultrasound 07/12/17 0000 Signed Impressions: Service Date/Time: Wednesday, July 12, 2017 23:03 - CONCLUSION: Left knee Crane's cyst. No evidence of DVT in either leg Byron Enriquez MD Head CTA 07/12/17 0000 Signed Impressions: Service Date/Time: Wednesday, July 12, 2017 19:09 - CONCLUSION: Unremarkable CTA of the brain. Adrian Mak MD Objective Remarks AAOx3 - awake and alert - follows commands NAD S1S2 RRR left facial droop, muscle strength is 4/5 in left upper and left lower extremity and 5/5 in right upper and lower extremity. There are no sensory abnormalities. Abdomen is soft, nontender nondistended. Medications and IVs Current Medications Medications (Trade) Dose Ordered Sig/Suzi Route Start Time Stop Time Status Last Admin (Heparin Inj) 5,000 units UNSCH PRN IV PUSH 07/12/17 21:15 (Heparin Inj) 2,500 units UNSCH PRN IV PUSH 07/12/17 21:15 Heparin Sodium/ Dextrose 250 ml @ 8.64 mls/hr TITRATE PRN IV 07/12/17 15:15 07/13/17 17:05 (Lipitor) 20 mg HS PO 07/12/17 21:00 (Vitamin D3) 1,000 units DAILY PO 07/13/17 09:00 (Plavix) 75 mg DAILY PO 07/12/17 19:15 Future Hold (Synthroid) 50 mcg DAILY@0600 PO 07/13/17 06:00 (Singulair) 10 mg HS PO 07/12/17 21:00 (Protonix) 40 mg DAILY PO 07/12/17 19:15 (Duoneb Neb) 1 ampule Q4HR NEB PRN NEB 07/12/17 22:30 Sodium Chloride 1,000 ml @ 84 mls/hr [id number] IV 07/13/17 12:00 07/13/17 12:00 A/P Problem List: (1) CVA (cerebral vascular accident) ICD Code: I63.9 - Cerebral infarction, unspecified Status: Acute Plan: Is a 89-year-old female who presents to [facility] complaining of jaundice weakness in bilateral extremities. The onset of the problem was acute and the patient was worked up in emergency department and determined to have elevated troponins, for which the patient was started on IV heparin and then transferred to the main hospital in [place]. Upon arrival at the hospital in [place] the patient was noted to have a facial droop on the left side and left lower extremity weakness, so she decided to call stroke alert. The patient was admitted to the intensive care unit Neurology consulted CTA showed calcified plaques at both bifurcations but no focal significant stenosis involving the internal carotid arteries. CTA of the brain unremarkable. Head CT done upon presentation of the patient to the hospital showed no acute disease. Neurologic consulted. Conditions appreciated. Patient not a TPA candidate given that the patient presented symptoms since 11:00 on the day of admission which is 8 hours after presentation. Follow-up echocardiogram and Holter. Etiology consulted as per neurology recommendations. Dr Smith evaluate the patient. Endocardium shows preserved left systolic function and no segmental wall motion abnormalities. Troponin is not trending. There is no evidence of acute myocardial infarction this time. Cardiology recommended a VQ scan, however CTA pulmonary angiogram was done which ruled out PE. (2) Elevated troponin ICD Code: R74.8 - Abnormal levels of other serum enzymes Status: Acute Plan: The patient was started on heparin for elevated cardiac enzymes. Cardiology consulted. The patient is chest pain-free. As per cardiology evaluation, medically clear evidence of myocardial infarction at this point. (3) CAD (coronary artery disease) ICD Code: I25.10 - Atherosclerotic heart disease of [place] coronary artery without angina pectoris Status: Chronic Plan: As above. (4) Pulmonary HTN ICD Code: I27.20 - Pulmonary hypertension, unspecified Status: Acute Plan: As seen on 2-D echocardiogram. Follow-up cardiology recommendations. (5) HTN (hypertension) ICD Code: I10 - Essential (primary) hypertension Status: Acute Plan: Will allow permissive hypertension. No correction unless systolic blood pressure is more than 210. (6) Dyslipidemia ICD Code: E78.5 - Hyperlipidemia, unspecified Status: Chronic Plan: Continue statin. Lipid profile shows triglycerides 112, total cholesterol 84, LDL cholesterol 24, HDL cholesterol of 37.9. Assessment and Plan GI prophylaxis: PPI. DVT prophylaxis: The patient on heparin IV. Discharge Planning Patient is okay to transfer to medical floor. Discharge pending neurology clearance, Problem Qualifiers (1) CAD (coronary artery disease): Qualified Codes: I25.10 - Atherosclerotic heart disease of [place] coronary artery without angina pectoris (2) HTN (hypertension): Qualified Codes: I10 - Essential (primary) hypertension Rad Monteiro MD Jul 13, 2017 18:27
[2017-07-13] MEDS: ASPIRIN 81 MG CHEW TAB CHEW SCH (18:30)
[2017-07-13] MEDS: MONTELUKAST SODIUM 10 MG TAB PO SCH (20:42)
[2017-07-13] MEDS: ATORVASTATIN 20 MG TAB PO SCH (20:42)
[2017-07-13] MEDS: PANTOPRAZOLE SOD 40 MG DELAYED RELEASE TAB PO SCH (20:46)
[2017-07-14] VITALS (10 sets, daily range): BP systolic 139–179; BP diastolic 60–84; PULSE 60–62; RESP 18–30; TEMP 97.3–98.2; O2SAT 95–97
[2017-07-14] MEDS: SODIUM CHLOR 0.9% 1000 ML INJ 1,000 ML IV SCH (01:40)
[2017-07-14] MEDS: LEVOTHYROXINE SODIUM 50 MCG TAB PO SCH (05:15)
[2017-07-14 05:53] LABS: AUTOMATED NEUTROPHIL # 3.7 TH/MM3 (1.8-7.7); BASOPHIL % 0.6 % (0.0-2.0); EOSINOPHIL # 0.2 TH/MM3 (0-0.4); EOSINOPHIL % 3.8 % (0.0-4.0); HEMATOCRIT 40.5 % (35.0-46.0); HEMO FLAGS DIFF FINAL; LYMPH % 15.4 % (9.0-44.0); LYMPHOCYTE # 0.8 TH/MM3 (1.0-4.8); MEAN CORPUSCULAR HEMOGLOBIN 31.7 PG (27.0-34.0); MONO % 7.8 % (0.0-8.0); NEUT % 72.4 % (16.0-70.0); PLATELET COUNT 149 TH/MM3 (150-450); RED BLOOD COUNT 4.35 MIL/MM3 (4.00-5.30); RED CELL DISTRIBUTION WIDTH 14.2 % (11.6-17.2); WHITE BLOOD COUNT 5.1 TH/MM3 (4.0-11.0)
[2017-07-14 06:03] LABS: APTT (PATIENT) 54.3 SEC (24.3-30.1)
--- NOTE | 2017-07-14 07:38 | HHI.PR ---
Subjective Remarks feels better sr Objective Vital Signs Date Time Temp Pulse Resp B/P (MAP) Pulse Ox O2 Delivery O2 Flow Rate FiO2 07/14/17 06:00 60 07/14/17 04:00 98.0 62 23 179/77 (111) 96 07/14/17 04:00 61 07/14/17 02:00 62 07/14/17 00:00 60 07/14/17 00:00 97.9 61 24 142/81 (101) 96 07/13/17 22:00 60 07/13/17 20:00 98.0 62 22 155/75 (101) 97 07/13/17 20:00 60 07/13/17 19:00 97 Room Air 07/13/17 16:00 97.7 60 20 154/70 (98) 97 07/13/17 12:00 98.7 60 21 160/92 (114) 99 07/13/17 08:00 97.5 60 29 138/74 (95) 98 I/O 07/13/17 07/13/17 07/13/17 07/14/17 07/14/17 07/14/17 07:00 15:00 23:00 07:00 15:00 23:00 Intake Total 525 ml 1620 ml Balance 525 ml 1620 ml Intake Oral 525 ml 620 ml IV Total 1000 ml # Voids 3 4 5 # Bowel Movements 0 Result Diagram: 07/14/17 0409 07/12/17 1416 Other Results echo nl x puilm htn Objective Remarks vff face sym nl lue and near nl lle a little clumsy left foot nl speech Assessment and Plan Assessment and Plan imp on hep ctax2 nl ct neg fu echo nl holter ldl nl was already on plavix hx [address] LOMBARDI YEST APPEARS TO BE JEREMIAS CARDIOEMBOLIC FROM A STROKE POINT OF VIEW I WOULD PREFER COUMADIN AND ASA 81 TO COVER HEART AND A LOOP RECORDER IF SHE HAD AN CA THIS WOULD NOT COVER THAT BETTER THAN NAI MCDOWELL STILL ON IV HEP MY PLAN? ? START COUMADIN BY MED TEAM UNLESS DR LOMBARDI FEELS [place] BETTER FOR CA OK TO START BETA MYRTLE BACK AND RUN BP TO 140/ SHOULD WE DO NUCLEAR STRESS TEST? OOB ? PUT IN LOOP RECORDER NOW (from neuro point of view could go to rehab on hep and they can run coumadin bon[place]? if that is what is decided) Crow Antunez MD Jul 14, 2017 07:38
[2017-07-14 07:57] LABS: ALKALINE PHOSPHATASE 76 U/L (45-117); ALT (GPT) 15 U/L (10-53); AST (GOT) 16 U/L (15-37); BLOOD UREA NITROGEN 11 MG/DL (7-18); GLOMERULAR FILTRATION RATE 88 ML/MIN (>89); MAGNESIUM 1.6 MG/DL (1.5-2.5); POTASSIUM 3.4 MEQ/L (3.5-5.1); SODIUM (NA) 134 MEQ/L (136-145); TOTAL BILIRUBIN ADULT 0.5 MG/DL (0.2-1.0)
[2017-07-14 07:58] LABS: ANION GAP 11 MEQ/L (5-15); BICARBONATE 22.8 MEQ/L (21.0-32.0); CHLORIDE 100 MEQ/L (98-107)
[2017-07-14] MEDS: PANTOPRAZOLE SOD 40 MG DELAYED RELEASE TAB PO SCH ×2 (09:00→10:04)
[2017-07-14] MEDS: CHOLECALCIFEROL (VIT D3) 1000 UNIT TAB PO SCH (10:04)
[2017-07-14] MEDS: ASPIRIN 81 MG CHEW TAB CHEW SCH (10:04)
[2017-07-14 11:53] LABS: ANA SCREEN NEG (NEG)
[2017-07-14] MEDS ORDERED: POTASSIUM CHLORIDE 20 MEQ CONTROLLED RELEASE TAB PO ONE (15:30)
--- NOTE | 2017-07-14 15:40 | HHI.PR ---
Subjective Remarks Patient's daughters are at bedside. The patient states she is doing much better. Was able to get up with physical therapy and ambulate with a walker. Denies chest pain or shots of breath. Denies fevers or chills per next and denies diarrhea. Objective Vitals Vital Signs Date Time Temp Pulse Resp B/P (MAP) Pulse Ox O2 Delivery O2 Flow Rate FiO2 07/14/17 14:00 62 07/14/17 12:00 62 07/14/17 12:00 97.5 62 24 153/72 (99) 95 07/14/17 10:00 60 07/14/17 08:00 97.7 62 30 173/84 (113) 97 07/14/17 08:00 60 07/14/17 07:00 97 Room Air 07/14/17 06:00 60 07/14/17 04:00 98.0 62 23 179/77 (111) 96 07/14/17 04:00 61 07/14/17 02:00 62 07/14/17 00:00 60 07/14/17 00:00 97.9 61 24 142/81 (101) 96 07/13/17 22:00 60 07/13/17 20:00 98.0 62 22 155/75 (101) 97 07/13/17 20:00 60 07/13/17 19:00 97 Room Air 07/13/17 16:00 97.7 60 20 154/70 (98) 97 I/O 07/13/17 07/13/17 07/13/17 07/14/17 07/14/17 07/14/17 07:00 15:00 23:00 07:00 15:00 23:00 Intake Total 525 ml 1620 ml Balance 525 ml 1620 ml Intake Oral 525 ml 620 ml IV Total 1000 ml # Voids 3 4 5 # Bowel Movements 0 Result Diagram: 07/14/17 0409 07/14/17 [address] Angiography 07/13/17 0000 Signed Impressions: Service Date/Time: July 12:39 - CONCLUSION: 1. No pulmonary embolus is identified. 2. There are multiple enlarged, abnormal nodes seen within the right axilla suspicious for malignancy. These are abnormal in both size and number. 3. Small amount of fluid loculated in the fissure on the right. 4. COPD changes. Francis Billingsley MD Head CT 07/12/171331 Signed Impressions: Service Date/Time: Wednesday, July 12, 2017 13:57 - CONCLUSION: No acute disease. Dveen Andrea Jr., MD Chest X-Ray 07/12/171331 Signed Impressions: Service Date/Time: Wednesday, July 12, 2017 13:47 - CONCLUSION: Compensated cardiomegaly otherwise negative . The portion of the bony skeleton visualized is unremarkable. Board Certified Radiologist. This report was verified electronically. Neck CTA 07/12/17 0000 Signed Impressions: Service Date/Time: Wednesday, July 12, 2017 19:09 - CONCLUSION: 1. Calcified plaques are seen at both bifurcations. 2. No focal or significant stenosis involving the internal carotid arteries. Adrian Mak MD Lower Extremity Ultrasound 07/12/17 0000 Signed Impressions: Service Date/Time: Wednesday, July 12, 2017 23:03 - CONCLUSION: Left knee Crane's cyst. No evidence of DVT in either leg Byron Enriquze MD Head CTA 07/12/17 0000 Signed Impressions: Service Date/Time: Wednesday, July 12, 2017 19:09 - CONCLUSION: Unremarkable CTA of the brain. Adrian Mak MD Objective Remarks AAOx3 - awake and alert - follows commands NAD S1S2 RRR left facial droop, muscle strength is 4/5 in left upper and left lower extremity and 5/5 in right upper and lower extremity. There are no sensory abnormalities. Abdomen is soft, nontender nondistended. Medications and IVs Current Medications Medications (Trade) Dose Ordered Sig/Suzi Route Start Time Stop Time Status Last Admin (Heparin Inj) 5,000 units UNSCH PRN IV PUSH 07/12/17 21:15 07/14/17 20:00 (Heparin Inj) 2,500 units UNSCH PRN IV PUSH 07/12/17 21:15 07/14/17 20:00 Heparin Sodium/ Dextrose 250 ml @ 8.64 mls/hr TITRATE PRN IV 07/12/17 15:15 07/14/17 20:00 07/13/17 17:05 (Lipitor) 20 mg HS PO 07/12/17 21:00 07/13/17 20:42 (Vitamin D3) 1,000 units DAILY PO 07/13/17 09:00 07/14/17 10:04 (Synthroid) 50 mcg DAILY@0600 PO 07/13/17 06:00 07/14/17 05:15 (Singulair) 10 mg HS PO 07/12/17 21:00 07/13/17 20:42 (Protonix) 40 mg DAILY PO 07/12/17 19:15 07/14/17 09:00 (Duoneb Neb) 1 ampule Q4HR NEB PRN NEB 07/12/17 22:30 (Aspirin Chew) 81 mg DAILY CHEW 07/13/17 18:30 07/14/17 10:04 (Lopressor) 25 mg Q12HR PO 07/14/17 21:00 (Coumadin) 2 mg DAILY@16 PO 07/14/17 17:00 Pharmacy Profile Note 0 ml @ 0 mls/hr UNSCH OTHER 07/14/17 15:45 (Lovenox Inj) 70 mg Q12H SQ 07/14/17 20:00 Urinary Catheter: No Vascular Central Line Catheter: No A/P Problem List: (1) CVA (cerebral vascular accident) ICD Code: I63.9 - Cerebral infarction, unspecified Status: Acute Plan: Is a 89-year-old female who presents to [facility] complaining of jaundice weakness in bilateral extremities. The onset of the problem was acute and the patient was worked up in emergency department and determined to have elevated troponins, for which the patient was started on IV heparin and then transferred to the main hospital in [place]. Upon arrival at the hospital in [place] the patient was noted to have a facial droop on the left side and left lower extremity weakness, so she decided to call stroke alert. The patient was admitted to the intensive care unit Neurology consulted CTA showed calcified plaques at both bifurcations but no focal significant stenosis involving the internal carotid arteries. CTA of the brain unremarkable. Head CT done upon presentation of the patient to the hospital showed no acute disease. Neurologic consulted. Recommendations appreciated. Patient not a TPA candidate given that the patient presented symptoms since 11:00 on the day of admission which is 8 hours after presentation. Etiology consulted as per neurology recommendations. Dr Smith evaluate the patient. Echocardiogram showed preserved left systolic function and no segmental wall motion abnormalities. Troponin is not trending. There is no evidence of acute myocardial infarction this time. Cardiology recommended a VQ scan, however CTA pulmonary angiogram was done which ruled out PE. 07/14 I will discontinue Plavix and IV heparin and continue the patient on aspirin 81 mg by mouth daily and start on Coumadin with INR of 2-3. Consult pharmacy to help with dosing. I discussed the case with Dr. smith who recommends against performing stress test on this patient given that she is clinically doing well, does not have chest pain and she is not from the area and does not have follow-up here. Dr. smith and agrees with the plan of start the patient on aspirin and Coumadin. (2) Elevated troponin ICD Code: R74.8 - Abnormal levels of other serum enzymes Status: Acute Plan: The patient was started on heparin for elevated cardiac enzymes. Cardiology consulted. The patient is chest pain-free. As per cardiology evaluation, medically clear evidence of myocardial infarction at this point. 07/14 Cardiac troponins peaked at 0.7, down to 0.2 today. Patient continues to be chest pain-free. Management as stated above. (3) CAD (coronary artery disease) ICD Code: I25.10 - Atherosclerotic heart disease of [place] coronary artery without angina pectoris Status: Chronic Plan: As above. (4) Pulmonary HTN ICD Code: I27.20 - Pulmonary hypertension, unspecified Status: Acute Plan: As seen on 2-D echocardiogram. Follow-up cardiology recommendations. (5) HTN (hypertension) ICD Code: I10 - Essential (primary) hypertension Status: Acute Plan: Permissive hypertension allowed. Antihypertensive medications discontinued. 07/14 I will start the patient on metoprolol 25 minutes by mouth twice a day which she was taking at home. Continue to monitor vital signs. (6) Dyslipidemia ICD Code: E78.5 - Hyperlipidemia, unspecified Status: Chronic Plan: Continue statin. Lipid profile shows triglycerides 112, total cholesterol 84, LDL cholesterol 24, HDL cholesterol of 37.9. (7) Hypokalemia ICD Code: E87.6 - Hypokalemia Plan: Mild hypokalemia. Replace orally and monitor BMP. Assessment and Plan GI prophylaxis: PPI. DVT prophylaxis: The patient on heparin IV. Discharge Planning Will discharge once INR reaches 2-3. Plan discussed with daughters who plan to take the patient home, they will stay here for a week and then go back to her home state. Problem Qualifiers (1) CAD (coronary artery disease): Qualified Codes: I25.10 - Atherosclerotic heart disease of [place] coronary artery without angina pectoris (2) HTN (hypertension): Qualified Codes: I10 - Essential (primary) hypertension Rad Monteiro MD Jul 14, 2017 15:40
[2017-07-14] MEDS ORDERED: ENOXAPARIN SODIUM 60 MG/0.6 ML SYRINGE SQ SCH (15:45)
--- NOTE | 2017-07-14 17:12 | PD.CARD.PN ---
Subjective Subjective Remarks No CP or SOB, feels better Objective Medications Current Medications Medications (Trade) Dose Ordered Sig/Suzi Route Start Time Stop Time Status Last Admin (Heparin Inj) 5,000 units UNSCH PRN IV PUSH 07/12/17 21:15 07/14/17 20:00 (Heparin Inj) 2,500 units UNSCH PRN IV PUSH 07/12/17 21:15 07/14/17 20:00 Heparin Sodium/ Dextrose 250 ml @ 8.64 mls/hr TITRATE PRN IV 07/12/17 15:15 07/14/17 20:00 07/13/17 17:05 (Lipitor) 20 mg HS PO 07/12/17 21:00 07/13/17 20:42 (Vitamin D3) 1,000 units DAILY PO 07/13/17 09:00 07/14/17 10:04 (Synthroid) 50 mcg DAILY@0600 PO 07/13/17 06:00 07/14/17 05:15 (Singulair) 10 mg HS PO 07/12/17 21:00 07/13/17 20:42 (Protonix) 40 mg DAILY PO 07/12/17 19:15 07/14/17 09:00 (Duoneb Neb) 1 ampule Q4HR NEB PRN NEB 07/12/17 22:30 (Aspirin Chew) 81 mg DAILY CHEW 07/13/17 18:30 07/14/17 10:04 (Lopressor) 25 mg Q12HR PO 07/14/17 21:00 (Coumadin) 2 mg DAILY@16 PO 07/14/17 17:00 Pharmacy Profile Note 0 ml @ 0 mls/hr UNSCH OTHER 07/14/17 15:45 (Lovenox Inj) 70 mg Q12H SQ 07/14/17 20:00 Vital Signs / I&O Vital Signs Date Time Temp Pulse Resp B/P (MAP) Pulse Ox O2 Delivery O2 Flow Rate FiO2 07/14/17 16:00 60 07/14/17 16:00 97.3 60 24 139/60 (86) 96 07/14/17 14:00 62 07/14/17 12:00 62 07/14/17 12:00 97.5 62 24 153/72 (99) 95 07/14/17 10:00 60 07/14/17 08:00 97.7 62 30 173/84 (113) 97 07/14/17 08:00 60 07/14/17 07:00 97 Room Air 07/14/17 06:00 60 07/14/17 04:00 98.0 62 23 179/77 (111) 96 07/14/17 04:00 61 07/14/17 02:00 62 07/14/17 00:00 60 07/14/17 00:00 97.9 61 24 142/81 (101) 96 07/13/17 22:00 60 07/13/17 20:00 98.0 62 22 155/75 (101) 97 07/13/17 20:00 60 07/13/17 19:00 97 Room Air I/O 07/13/17 07/13/17 07/13/17 07/14/17 07/14/17 07/14/17 07:00 15:00 23:00 07:00 15:00 23:00 Intake Total 525 ml 1620 ml 1000 ml Balance 525 ml 1620 ml 1000 ml Intake Oral 525 ml 620 ml IV Total 1000 ml 1000 ml # Voids 3 4 5 4 # Bowel Movements 0 Physical Exam GENERAL: In NAD SKIN: Warm and dry. HEAD: Normocephalic. EYES: No scleral icterus. No injection or drainage. NECK: Supple, trachea midline. No JVD or lymphadenopathy. CARDIOVASCULAR: Regular rate and rhythm without murmurs, gallops, or rubs. RESPIRATORY: Breath sounds equal bilaterally. No accessory muscle use. GASTROINTESTINAL: Abdomen soft, non-tender, nondistended. MUSCULOSKELETAL: No cyanosis, trace edema. Laboratory Laboratory Tests Test 07/14/17 04:09 White Blood Count 5.1 TH/MM3 Red Blood Count 4.35 MIL/MM3 Hemoglobin 13.8 GM/DL Hematocrit 40.5 % Mean Corpuscular Volume 93.0 FL Mean Corpuscular Hemoglobin 31.7 PG Mean Corpuscular Hemoglobin Concent 34.0 % Red Cell Distribution Width 14.2 % Platelet Count 149 TH/MM3 Mean Platelet Volume 8.2 FL Neutrophils (%) (Auto) 72.4 % Lymphocytes (%) (Auto) 15.4 % Monocytes (%) (Auto) 7.8 % Eosinophils (%) (Auto) 3.8 % Basophils (%) (Auto) 0.6 % Neutrophils # (Auto) 3.7 TH/MM3 Lymphocytes # (Auto) 0.8 TH/MM3 Monocytes # (Auto) 0.4 TH/MM3 Eosinophils # (Auto) 0.2 TH/MM3 Basophils # (Auto) 0.0 TH/MM3 CBC Comment DIFF FINAL Differential Comment Activated Partial Thromboplast Time 54.3 SEC Blood Urea Nitrogen 11 MG/DL Creatinine 0.64 MG/DL Random Glucose 104 MG/DL Total Protein 6.3 GM/DL Albumin 3.3 GM/DL Calcium Level 9.1 MG/DL Phosphorus Level 3.4 MG/DL Magnesium Level 1.6 MG/DL Alkaline Phosphatase 76 U/L Aspartate Amino Transf (AST/SGOT) 16 U/L Alanine Aminotransferase (ALT/SGPT) 15 U/L Total Bilirubin 0.5 MG/DL Sodium Level 134 MEQ/L Potassium Level 3.4 MEQ/L Chloride Level 100 MEQ/L Carbon Dioxide Level 22.8 MEQ/L Anion Gap 11 MEQ/L Estimat Glomerular Filtration Rate 88 ML/MIN Troponin I 0.27 NG/ML Assessment and Plan Problem List: (1) CVA (cerebral vascular accident) ICD Codes: I63.9 - Cerebral infarction, unspecified Status: Acute (2) CAD (coronary artery disease) ICD Codes: I25.10 - Atherosclerotic heart disease of [place] coronary artery without angina pectoris Status: Chronic (3) Elevated troponin ICD Codes: R74.8 - Abnormal levels of other serum enzymes Status: Acute (4) HTN (hypertension) ICD Codes: I10 - Essential (primary) hypertension Status: Acute (5) Dyslipidemia ICD Codes: E78.5 - Hyperlipidemia, unspecified Status: Chronic (6) Pulmonary HTN ICD Codes: I27.20 - Pulmonary hypertension, unspecified Status: Acute Assessment and Plan Continue monitoring. No angina or CHF symptoms. Discontinue clopidogrel, start warfarin and continue baby ASA for recurrent stroke prevention. 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 Problem Qualifiers (1) CAD (coronary artery disease): Qualified Codes: I25.10 - Atherosclerotic heart disease of [place] coronary artery without angina pectoris (2) HTN (hypertension): Qualified Codes: I10 - Essential (primary) hypertension Rylee Smith MD Jul 14, 2017 17:12
[2017-07-14] MEDS: WARFARIN SOD 2 MG TAB PO SCH (18:37)
[2017-07-14] MEDS: METOPROLOL TARTRATE 25 MG TAB PO SCH (23:27)
[2017-07-14] MEDS: ATORVASTATIN 20 MG TAB PO SCH ×2 (23:27→23:41)
[2017-07-14] MEDS: MONTELUKAST SODIUM 10 MG TAB PO SCH (23:27)
[2017-07-14] MEDS: ENOXAPARIN SODIUM 80 MG/0.8 ML SYRINGE SQ SCH (23:41)
[2017-07-15] VITALS (9 sets, daily range): BP systolic 138–180; BP diastolic 63–90; PULSE 60–75; RESP 17–26; TEMP 97.4–98.2; O2SAT 94–99
--- NOTE | 2017-07-15 01:19 | MB ---
cc: CHAVA LUCERO DATE OF CONSULTATION 07/14/17 DATE OF 1930 REASON FOR CONSULTATION Patient with acute stroke and history of non-Hodgkin lymphoma. HISTORY OF PRESENT ILLNESS This is an 87-year-old female who has a past medical history of cardiac disease with five cardiac stent placements, history of pacemaker, pulmonary hypertension, hyperlipidemia and hypertension as well as history of low grade non-Hodgkin's lymphoma who was brought to the emergency room after she developed upper extremity weakness. She is visiting [place] from [place], [place]. She was brought to the emergency room. She was found to be confused. She had bilateral lower extremity weakness. She also had a left-sided facial droop. In the emergency department she had a neck CTA which showed calcified plaques in both bifurcation but no focal or significant carotid stenosis. A CTA of the head was obtained which was unremarkable. She had a lower extremity Doppler ultrasound which showed a left knee Crane cyst with no evidence of DVT in the leg. The patient was seen by neurology and she was thought to have cardioembolic stroke. She has also been evaluated by cardiology. The patient was not a candidate for TPA. She was found to have a [id number] WA with elevated troponin levels. Medical management was recommended. Over the course of her admission a CT angiogram was obtained which did not reveal any pulmonary embolus but she was found to have multiple enlarged abnormal lymph nodes in the right axilla suspicious for malignancy. I am being consulted to make recommendations regarding lymphadenopathy. REVIEW OF SYSTEMS A comprehensive 14-point review of systems was completed which is negative except as described in the HPI. PAST MEDICAL HISTORY Hypertension and coronary artery disease status post cardiac stents, pulmonary hypertension, asthma, hypothyroidism. History of non-Hodgkin's lymphoma diagnosed 10 years ago. She was treated with Rituxan x1. This appears to be low grade lymphoma. She follows with an oncologist in [place], [place]. PAST SURGICAL HISTORY Appendectomy, tonsillectomy, wedge resection on the right lower lung. She has had a left salivary gland mass which was excised and this proved to be non-Hodgkin's lymphoma. MEDICATIONS 1. Metoprolol 25 milligrams p.o. q. 12 hours. 2. Tylenol 650 1 tablet q. 4 hours p.r.n. 3. Lovenox 70 milligrams subcu q. 12 hours. 4. Aspirin 81 milligrams daily. 5. Levothyroxine 50 microgram one tablet p.o. daily. 6. DuoNebs 1 amp q. 4 hours p.r.n. 7. Atorvastatin 20 milligrams p.o. q. h.s. 8. Pantoprazole 40 milligrams p.o. daily. ALLERGIES NO KNOWN DRUG ALLERGIES.. FAMILY HISTORY Reviewed and noncontributory. SOCIAL HISTORY She does not smoke cigarettes. No illicit drug use. No excessive alcohol intake. PHYSICAL EXAMINATION VITAL SIGNS: Blood pressure is 139/60, pulse in the 60s, temperature is 97.3, O2 sats are 96% on room air, respiratory rate is 18. GENERAL: Elderly female who is somewhat lethargic and sleepy. HEENT: Pupils are equal, round, reactive to light. EOMI. No oral thrush. No oral lesions. NECK: Neck is supple. No JVD. No bruits. No lymphadenopathy. CHEST: Clear to auscultation bilaterally. CARDIAC: S1-S2, regular rate and rhythm. ABDOMEN: Soft, nontender, nondistended. EXTREMITIES: Left lower extremity weakness 3/5. NEURO: Again, weakness was noted in the left lower extremity. Cognition is intact. No speech problems. LABORATORY DATA WBC 5.1, hemoglobin 13.8, MCV 93, platelet count 149. Sodium 134, potassium 3.4, CO2 22.8, BUN 10, creatinine 0.64, calcium 9.1, phosphorus 3.4, magnesium 1.6, total bilirubin 0.5, AST 16, ALT 15, alk phos 76. Troponin 0.27. Total protein 6.3, albumin 3.3. IMAGING STUDIES Reviewed in the EMR. ASSESSMENT/PLAN This is an 87-year-old female with a history of cardiac disease, status post cardiac stents, history of non-Hodgkin lymphoma, hypertension, hyperlipidemia who presents to the emergency room with stroke-like symptoms and was admitted to the hospital. During the course of her admission she had a CT angiogram which did not reveal any pulmonary embolus. She was found to have suspicious looking lymph nodes concerning for malignancy in the right axilla. 1. Lymphadenopathy in the right axilla. She has a known history of non-Hodgkin's trauma. 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 She was treated with Rituxan with good treatment response. She is currently under observation. She follows with an oncologist in [place], [place]. I had a long discussion with the patient's two daughters who are nurses. They intend on taking this patient with them back to [place], [place]. Since the patient has an establish oncologist I would not recommend any further workup here and [place]. The patient will follow up with her oncologist in [place], [place]. 2. CVA with a background of coronary artery disease. I have reviewed the notes from cardiology and in their opinion this was a cardioembolic stroke. In this situation I would recommend treatment with Coumadin. I would defer rather to continue this patient on aspirin or Plavix to cardiology as keeping her on aspirin, Plavix and Coumadin will place her at a high risk for bleeding. I would recommend continuing aspirin and Coumadin. Thank you for allowing me to participate in the care of this patient. I will continue to follow this patient along. MD SHRADDHA Dickens/KATHERINE /11:20 PM /1:01 AM
[2017-07-15] MEDS: LEVOTHYROXINE SODIUM 50 MCG TAB PO SCH (06:27)
--- NOTE | 2017-07-15 08:03 | HM ---
Date Performed: 07/13/2017 Time Performed: 17:45:00 HOOKUP DATE: 07/13/17 05:45:00 PM [facility] ANALYSIS START TIME: 07/13/2017 5:50:00 PM ANALYSIS END TIME: 07/14/2017 5:31:00 PM PATIENT AGE: 87 PATIENT HEIGHT: 61 PATIENT WEIGHT: 158 DRUG LIST PATIENT DIAGNOSIS: NSTEMI/stroke alert TEST NARRATIVE: The patient's average heart rate was 61 BPM. No episodes of tachycardia wer e noted. No episodes of bradycardia were noted. No pauses exceeding 2.0 seconds were noted. 3 ventricular ectopics, which represented < 1% of the total beat count, were noted. The highest vent ricular ectopic frequency occurred from 02:00 AM to 03:00 AM Fri. During this time 2 VE(s) occurred. Ventricular ectopics were observed as 3 isolated beat(s) only. No couplets or runs were noted. 29 supraventricular ectopics, which represented < 1% of the total beat count, were noted. The highe st supraventricular ectopic frequency occurred from 02:00 AM to 03:00 AM Fri. During this time 17 SV E(s) occurred. No episodes of ST depression (defined as -1.0 mm or more) were noted in channel 1. No episodes of ST depression (defined as -1.0 mm or more) were noted in channel 2. No episodes of ST depression (defined as -1.0 mm or more) were noted in channel 3. No diary was returned. TEST INTERPRETATION: No diary was returned and no significant pauses present. I do not see docu mentation of it, but, the patient appears to have a dual-chamber pacemaker. There is probable atrial pacing seen with intermittent ventricular pacing seen. Rare premature atrial and ventricular contra ctions are seen with rare atrial couplets. Signed by : Bismark Ruiz
[2017-07-15 08:22] LABS: HEMATOCRIT 43.8 % (35.0-46.0); MEAN CELL VOLUME 93.7 FL (80.0-100.0); MEAN CORPUSCULAR HEMOGLOBIN 31.6 PG (27.0-34.0); MEAN CORPUSCULAR HGB CONC 33.7 % (32.0-36.0); PLATELET COUNT 156 TH/MM3 (150-450); RED BLOOD COUNT 4.68 MIL/MM3 (4.00-5.30); RED CELL DISTRIBUTION WIDTH 14.4 % (11.6-17.2); REVIEW FLAG FINAL; WHITE BLOOD COUNT 4.1 TH/MM3 (4.0-11.0)
[2017-07-15 08:31] LABS: PROTHROMBIN TIME - PATIENT 11.4 SEC (9.8-11.6)
[2017-07-15] MEDS: ENOXAPARIN SODIUM 80 MG/0.8 ML SYRINGE SQ SCH (09:24)
[2017-07-15] MEDS: METOPROLOL TARTRATE 25 MG TAB PO SCH (09:24)
[2017-07-15] MEDS: PANTOPRAZOLE SOD 40 MG DELAYED RELEASE TAB PO SCH (09:24)
[2017-07-15] MEDS: ASPIRIN 81 MG CHEW TAB CHEW SCH (09:24)
[2017-07-15] MEDS: CHOLECALCIFEROL (VIT D3) 1000 UNIT TAB PO SCH (09:24)
[2017-07-15] MEDS ORDERED: hydrALAZINE HCL 20 MG/ML VIAL IV PUSH ONE (10:15)
[2017-07-15] MEDS ORDERED: ONDANSETRON HCL 4 MG/2 ML VIAL ONE (10:40)
[2017-07-15] MEDS ORDERED: IOHEXOL 350 MG/ML 10 ML VIAL (for RAD DIAG) IVCONTRAST ONE (10:57)
--- NOTE | 2017-07-15 11:03 | HHI.PR ---
Subjective Remarks Rapid response called on patient due to hypertensive emergency 10 minutes prior to that nurse called me reporting patient was having some right eye visual changes Patient states recently started having some changes in the right eye - right before rapid response called patient c/o complete central vision loss Patient c/o of some chest burning but denies any palpitations or chest pain. Chest abnormal sensation has resolved. Objective Vitals Vital Signs Date Time Temp Pulse Resp B/P (MAP) Pulse Ox O2 Delivery O2 Flow Rate FiO2 07/15/17 04:00 97.4 60 18 145/79 (101) 96 07/15/17 03:00 60 07/15/17 00:00 97.5 60 17 147/74 (98) 95 07/14/17 21:30 Room Air 07/14/17 20:00 98.2 61 18 166/74 (104) 95 07/14/17 16:00 60 07/14/17 16:00 97.3 60 24 139/60 (86) 96 07/14/17 14:00 62 07/14/17 12:00 62 07/14/17 12:00 97.5 62 24 153/72 (99) 95 I/O 07/14/17 07/14/17 07/14/17 07/15/17 07/15/17 07/15/17 07:00 15:00 23:00 07:00 15:00 23:00 Intake Total 1620 ml 1250 ml Balance 1620 ml 1250 ml Intake Oral 620 ml IV Total 1000 ml 1250 ml # Voids 5 7 2 # Bowel Movements 0 0 0 Result Diagram: 07/15/17 0620 07/14/17 [address] Angiography 07/13/17 0000 Signed Impressions: Service Date/Time: July 12:39 - CONCLUSION: 1. No pulmonary embolus is identified. 2. There are multiple enlarged, abnormal nodes seen within the right axilla suspicious for malignancy. These are abnormal in both size and number. 3. Small amount of fluid loculated in the fissure on the right. 4. COPD changes. Francis Billingsley MD Head CT 07/12/17 1348 Signed Impressions: Service Date/Time: Wednesday, July 12, 2017 13:57 - CONCLUSION: No acute disease. Deven Andrea Jr., MD Chest X-Ray 07/12/17 1332 Signed Impressions: Service Date/Time: Wednesday, July 12, 2017 13:47 - CONCLUSION: Compensated cardiomegaly otherwise negative . The portion of the bony skeleton visualized is unremarkable. Board Certified Radiologist. This report was verified electronically. Neck CTA 07/12/17 0000 Signed Impressions: Service Date/Time: Wednesday, July 12, 2017 19:09 - CONCLUSION: 1. Calcified plaques are seen at both bifurcations. 2. No focal or significant stenosis involving the internal carotid arteries. Adrian Mak MD Lower Extremity Ultrasound 07/12/17 0000 Signed Impressions: Service Date/Time: Wednesday, July 12, 2017 23:03 - CONCLUSION: Left knee Crane's cyst. No evidence of DVT in either leg Byron Enriquez MD Head CTA 07/12/17 0000 Signed Impressions: Service Date/Time: Wednesday, July 12, 2017 19:09 - CONCLUSION: Unremarkable CTA of the brain. Adrian Mak MD Objective Remarks AAOx3 - awake and alert - follows commands NAD S1S2 RRR Facial droop and left hemiparesis much improved. There is central loss of vision int he right eye by confrontation exam. muscle strength is 5/5 in all extremities. Sensation intact in all extremities. Normal speech and memory. Abdomen is soft, nontender nondistended. Medications and IVs Current Medications Medications (Trade) Dose Ordered Sig/Suzi Route Start Time Stop Time Status Last Admin (Lipitor) 20 mg HS PO 07/12/17 21:00 07/14/17 23:41 (Vitamin D3) 1,000 units DAILY PO 07/13/17 09:00 07/15/17 09:24 (Synthroid) 50 mcg DAILY@0600 PO 07/13/17 06:00 07/15/17 06:27 (Singulair) 10 mg HS PO 07/12/17 21:00 07/14/17 23:27 (Protonix) 40 mg DAILY PO 07/12/17 19:15 07/15/17 09:24 (Duoneb Neb) 1 ampule Q4HR NEB PRN NEB 07/12/17 22:30 (Aspirin Chew) 81 mg DAILY CHEW 07/13/17 18:30 07/15/17 09:24 (Lopressor) 25 mg Q12HR PO 07/14/17 21:00 07/15/17 09:24 (Coumadin) 2 mg DAILY@16 PO 07/14/17 17:00 07/14/17 18:37 Pharmacy Profile Note 0 ml @ 0 mls/hr UNSCH OTHER 07/14/17 15:45 (Lovenox Inj) 70 mg Q12H SQ 07/14/17 20:00 07/15/17 09:24 (Tylenol) 650 mg Q4H PRN PO 07/14/17 20:45 Urinary Catheter: No Vascular Central Line Catheter: No A/P Problem List: (1) CVA (cerebral vascular accident) ICD Code: I63.9 - Cerebral infarction, unspecified Status: Acute Plan: Is a 89-year-old female who presents to [facility] complaining of jaundice weakness in bilateral extremities. The onset of the problem was acute and the patient was worked up in emergency department and determined to have elevated troponins, for which the patient was started on IV heparin and then transferred to the main hospital in [place]. Upon arrival at the hospital in [place] the patient was noted to have a facial droop on the left side and left lower extremity weakness, so she decided to call stroke alert. The patient was admitted to the intensive care unit Neurology consulted CTA showed calcified plaques at both bifurcations but no focal significant stenosis involving the internal carotid arteries. CTA of the brain unremarkable. Head CT done upon presentation of the patient to the hospital showed no acute disease. Neurologic consulted. Recommendations appreciated. Patient not a TPA candidate given that the patient presented symptoms since 11:00 on the day of admission which is 8 hours after presentation. Etiology consulted as per neurology recommendations. Dr Smith evaluate the patient. Echocardiogram showed preserved left systolic function and no segmental wall motion abnormalities. Troponin is not trending. There is no evidence of acute myocardial infarction this time. Cardiology recommended a VQ scan, however CTA pulmonary angiogram was done which ruled out PE. 07/15 Patient started on Lovenox 1 mg /kg BID on 07/14 - first dose given last night. Heparin IV was discontinued. The patient presents side and right central loss of vision. 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 I will order stat head CT and CTA of the brain. The patient is on anticoagulation, therefore is not a candidate for TPA or any other procedure. Patient's blood pressures is in the 260's systolic for which eminence hydralazine IV once and when necessary-ordered. Continue to monitor vital signs. There are no events reported on telemetry, the patient has been on normal sinus rhythm. I will discontinue Lovenox and resume Plavix. If CT of the brain negative for acute bleed then will resume heparin IV tonight. I called neurologist on-call. Dr. Bearden responded to the call and explained the plan. States that he grew agrees with the plan. (2) Elevated troponin ICD Code: R74.8 - Abnormal levels of other serum enzymes Status: Acute Plan: The patient was started on heparin for elevated cardiac enzymes. Cardiology consulted. The patient is chest pain-free. As per cardiology evaluation, medically clear evidence of myocardial infarction at this point. 07/14 Cardiac troponins peaked at 0.7, down to 0.2 today. Patient continues to be chest pain-free. Management as stated above. 07/15 patient with chest discomfort today. EKG obtained and reviewed by me shows normal sinus rhythm without ST-T changes, when compared to prior unchanged. I will order cardiac enzymes and trend, as well as Trental EKG. (3) CAD (coronary artery disease) ICD Code: I25.10 - Atherosclerotic heart disease of [place] coronary artery without angina pectoris Status: Chronic Plan: As above. (4) Pulmonary HTN ICD Code: I27.20 - Pulmonary hypertension, unspecified Status: Acute Plan: As seen on 2-D echocardiogram. Follow-up cardiology recommendations. (5) HTN (hypertension) ICD Code: I10 - Essential (primary) hypertension Status: Acute Plan: Permissive hypertension allowed. Antihypertensive medications discontinued. 07/14 I will start the patient on metoprolol 25 mg po twice a day which she was taking at home. Continue to monitor vital signs. 07/15 the patient has a systolic blood pressure in the 260s. Likely secondary to acute CVA. 10 mg IV hydralazine have been ordered. If BP still elevated we' ll place on a Cardizem drip to keep systolic blood pressure less than 200 but no less than 180 systolic to keep permissive hypertension. (6) Dyslipidemia ICD Code: E78.5 - Hyperlipidemia, unspecified Status: Chronic Plan: Continue statin. Lipid profile shows triglycerides 112, total cholesterol 84, LDL cholesterol 24, HDL cholesterol of 37.9. (7) Hypokalemia ICD Code: E87.6 - Hypokalemia Plan: Mild hypokalemia. Replace orally and monitor BMP. (8) Central loss of vision ICD Code: H53.419 - [place] involving central area, unspecified eye Plan: Ration presents with acute central loss of vision of the right eye. Suspect due to ischemic CVA which could be embolic versus atherosclerotic. Patient has not had any episodes of atrial fibrillation on telemetry. Check stat CT and CTA of the brain. Case discussed with neurology on-call - Dr Bearden. CT head negative for acute bleed then will place back on IV heparin which the Coumadin with a goal INR 2-3. Assessment and Plan GI prophylaxis: PPI. DVT prophylaxis: The patient on heparin IV. Discharge Planning Transfer patient to the ICU. 40 minutes of critical care time spent on patient care. Problem Qualifiers (1) CAD (coronary artery disease): Qualified Codes: I25.10 - Atherosclerotic heart disease of [place] coronary artery without angina pectoris (2) HTN (hypertension): Qualified Codes: I10 - Essential (primary) hypertension (3) Central loss of vision: Qualified Codes: H53.411 - [place] involving central area, right eye Rad Monteiro MD Jul 15, 2017 11:03
--- NOTE | 2017-07-15 11:18 | RADRPT ---
EXAM DATE/TIME: 07/15/2017 10:34 [facility] COMPARISON: CT BRAIN W/O CONTRAST, July 12, 2017, 19:09. INDICATIONS : Sudden right eye vision loss. RADIATION DOSE: 56.35 CTDIvol (mGy) MEDICAL HISTORY : Cardiovascular disease. Hypertension. Lymphoma. SURGICAL HISTORY : Pacemaker. Coronary artery stent. ENCOUNTER: Initial ACUITY: 1 day PAIN SCALE: 0/10 LOCATION: cranial TECHNIQUE: Multiple contiguous axial images were obtained of the head. Using automated exposure control and adj ustment of the mA and/or kV according to patient size, radiation dose was kept as low as reasonably a chievable to obtain optimal diagnostic quality images. DICOM format image data is available electro nically for review and comparison. FINDINGS: CEREBRUM: The ventricles are normal for age. No evidence of midline shift, mass lesion, hemorrhage or acute in farction. No extra-axial fluid collections are seen. POSTERIOR FOSSA: The cerebellum and brainstem are intact. The 4th ventricle is midline. The cerebellopontine angle i s unremarkable. EXTRACRANIAL: The visualized portion of the orbits is intact. SKULL: The calvaria is intact. No evidence of skull fracture. CONCLUSION: Stable CT scan of the brain compared to 07/12/2017. Adrian Mak MD on July 15, 2017 at 11:16 Board Certified Radiologist. This report was verified electronically.
--- NOTE | 2017-07-15 11:27 | RADRPT ---
EXAM DATE/TIME: 07/15/2017 10:40 [place] COMPARISON: CTA BRAIN W 3D RECON, July 12, 2017, 19:09. INDICATIONS : Sudden vision loss in right eye. IV CONTRAST: 75 cc Omnipaque 350 (iohexol) IV RADIATION DOSE: 21.14 CTDIvol (mGy) MEDICAL HISTORY : Cardiovascular disease. Hypertension. Lymphoma. SURGICAL HISTORY : Coronary artery stent. Pacemaker.Tonsillectomy. ENCOUNTER: Initial ACUITY: 1 day PAIN SCALE: 0/10 LOCATION: cranial TECHNIQUE: Volumetric scanning was performed using a multi-row detector CT scanner. The data was post processed with a variety of visualization algorithms including full volume maximum intensity projection, multi -planar sliding thin slab reformation, curved planar reformation, and surface rendering techniques. Using automated exposure control and adjustment of the mA and/or kV according to patient size, radiat ion dose was kept as low as reasonably achievable to obtain optimal diagnostic quality images. DICO M format image data is available electronically for review and comparison. FINDINGS: There is excellent visualization of the major intracranial arteries out to the second-order branch ve ssels. There is no evidence for aneurysm, vessel truncation or stenosis, and no evidence for vascula r malformation. Compared to the recent prior study of 07/12/2017, there have been no new or significa nt changes. CONCLUSION: Stable CT of the brain compared to the recent prior study. Adrian Mak MD on July 15, 2017 at 11:23 Board Certified Radiologist. This report was verified electronically.
[2017-07-15] MEDS ORDERED: ALUMINUM/MAGNESIUM/SIMETH 30 ML CUP PO ONE (11:30)
[2017-07-15] MEDS ORDERED: ONDANSETRON HCL 4 MG/2 ML VIAL IV PUSH PRN (11:30)
[2017-07-15] MEDS ORDERED: ALUMINUM/MAGNESIUM/SIMETH 30 ML CUP PO PRN (11:30)
--- NOTE | 2017-07-15 12:05 | EKG ---
Date Performed: 07/15/2017 Time Performed: 10:10:28 PTAGE: 87 years EKG: ELECTRONIC ATRIAL PACEMAKER MARKED LEFT AXIS DEVIATION PATTERN CONSISTENT WITH PULMONARY DI SEASE ABNORMAL ECG No significant change from prior electrocardiogram. PREVIOUS TRACING : 07/12/2017 18.51 DOCTOR: Bismark Ruiz Interpretating Date/Time 07/15/2017 12:03:31
[2017-07-15] MEDS ORDERED: DULE100A INH (13:08)
[2017-07-15] MEDS: CLOPIDOGREL 75 MG TAB PO SCH (13:09)
[2017-07-15] MEDS ORDERED: MECLIZINE HCL 25 MG TAB PO PRN (13:30)
[2017-07-15] MEDS ORDERED: RESP: ALBUTEROL 2.5 MG/IPRATROPIUM 0.5 MG NEB (SCH) NEB ONE (13:30)
[2017-07-15] MEDS: WARFARIN SOD 2 MG TAB PO SCH (16:17)
[2017-07-15] MEDS: ACETAMINOPHEN 325 MG TAB PO PRN ×2 (16:18→20:41)
--- NOTE | 2017-07-15 17:18 | HHI.PR ---
Review/Management Daily Summary 07/[address] Gaffney called about visual loss today, spoke with RN and dr Torrez on exam she can see minimally on lower peripheral field OD, no loss OS slight pupillary afferent defect OD unable to see disks well no hemiparesis ct brain and repeat cta head normal BP was severely up unable to get ophtalmo to see today on multiple thinners, was on lovenox yesterday ESR normal 07/12 need eye exam for retina eval, ischemia vs hemorrhagic event continue current care Subjective Subjective Comments sudden OD visual loss earlier today, persists Active Medications Current Medications Medications (Trade) Dose Ordered Sig/Suzi Route Start Time Stop Time Status Last Admin (Lipitor) 20 mg HS PO 07/12/17 21:00 07/14/17 23:41 (Vitamin D3) 1,000 units DAILY PO 07/13/17 09:00 07/15/17 09:24 (Synthroid) 50 mcg DAILY@0600 PO 07/13/17 06:00 07/15/17 06:27 (Singulair) 10 mg HS PO 07/12/17 21:00 07/14/17 23:27 (Protonix) 40 mg DAILY PO 07/12/17 19:15 07/15/17 09:24 (Aspirin Chew) 81 mg DAILY CHEW 07/13/17 18:30 07/15/17 09:24 (Lopressor) 25 mg Q12HR PO 07/14/17 21:00 07/15/17 09:24 (Coumadin) 2 mg DAILY@16 PO 07/14/17 17:00 07/15/17 16:17 Pharmacy Profile Note 0 ml @ 0 mls/hr UNSCH OTHER 07/14/17 15:45 (Tylenol) 650 mg Q4H PRN PO 07/14/17 20:45 07/15/17 16:18 (Plavix) 75 mg DAILY PO 07/15/17 10:30 07/15/17 13:09 (Zofran Inj) 4 mg Q6HR PRN IV PUSH 07/15/17 11:30 (Mag-Al Plus Susp Liq) 30 ml Q6H PRN PO 07/15/17 11:30 (Antivert) 25 mg Q8H PRN PO 07/15/17 13:30 (Duoneb Neb) 1 ampule Q2HR NEB PRN NEB 07/15/17 13:30 Heparin Sodium/ Dextrose 250 ml @ 8 mls/hr TITRATE IV 07/15/17 21:20 Allergies Allergies Coded Allergies No Known Allergies (Zaamdiwsyo07/11/17) Exam I&O / VS Vital Signs Date Time Temp Pulse Resp B/P (MAP) Pulse Ox O2 Delivery O2 Flow Rate FiO2 07/15/17 16:00 98.2 61 26 158/70 (99) 99 07/15/17 14:00 62 07/15/17 14:00 138/73 (94) 07/15/17 13:00 98.0 62 26 168/69 (102) 99 07/15/17 10:50 180/80 (113) 07/15/17 08:00 97.4 60 18 146/90 (108) 94 07/15/17 04:00 97.4 60 18 145/79 (101) 96 07/15/17 03:00 60 07/15/17 00:00 97.5 60 17 147/74 (98) 95 07/14/17 21:30 Room Air 07/14/17 20:00 98.2 61 18 166/74 (104) 95 Objective Radiology Results Last 48 hours Impressions Head CTA 07/15/17 0000 Signed Impressions: Service Date/Time: Saturday, July 15, 2017 10:40 - CONCLUSION: Stable CT of the brain compared to the recent prior study. Adrian Mak MD Head CT 07/15/17 0000 Signed Impressions: Service Date/Time: Saturday, July 15, 2017 10:34 - CONCLUSION: Stable CT scan of the brain compared to 07/12/2017. Adrian Mak MD Micro and Labs Laboratory Tests Test 07/15/17 06:20 07/15/17 12:00 White Blood Count 4.1 Red Blood Count 4.68 Hemoglobin 14.8 Hematocrit 43.8 Mean Corpuscular Volume 93.7 Mean Corpuscular Hemoglobin 31.6 Mean Corpuscular Hemoglobin Concent 33.7 Red Cell Distribution Width 14.4 Platelet Count 156 Mean Platelet Volume 8.0 Prothrombin Time 11.4 Prothromb Time International Ratio 1.0 Total Creatine Kinase 57 Troponin I 0.41 Date/Time Source Procedure Growth Status 07/15/17 06:00 Stool Stool Stool Occult Blood (BRYNN) - Final HEMOCCULT NEGATIVE Complete Suleiman,Satinderimpio F. MD Jul 15, 2017 17:18
[2017-07-15 17:23] LABS: HEMATOCRIT 43.1 % (35.0-46.0); MEAN CORPUSCULAR HEMOGLOBIN 32.2 PG (27.0-34.0); MEAN CORPUSCULAR HGB CONC 34.2 % (32.0-36.0); PLATELET COUNT 161 TH/MM3 (150-450); RED BLOOD COUNT 4.59 MIL/MM3 (4.00-5.30); RED CELL DISTRIBUTION WIDTH 14.6 % (11.6-17.2); REVIEW FLAG FINAL; WHITE BLOOD COUNT 4.9 TH/MM3 (4.0-11.0)
[2017-07-15 17:31] LABS: APTT (PATIENT) 33.8 SEC (24.3-30.1)
[2017-07-15] MEDS: RESP: ALBUTEROL 2.5 MG/IPRATROPIUM 0.5 MG NEB (PRN) NEB (18:35)
[2017-07-15 18:58] LABS: BICARBONATE 20.7 MEQ/L (21.0-32.0); MAGNESIUM 1.6 MG/DL (1.5-2.5)
[2017-07-15] MEDS: ATORVASTATIN 20 MG TAB PO SCH (19:56)
[2017-07-15] MEDS: NITROGLYCERIN 2% OINT 1 GM PACKET TOPICAL SCH (19:56)
[2017-07-15] MEDS: MONTELUKAST SODIUM 10 MG TAB PO SCH (19:56)
[2017-07-15] MEDS: METOPROLOL TARTRATE 50 MG TAB PO SCH (19:56)
[2017-07-15] MEDS ORDERED: HEPARIN-D5W 25,000 U/250 ML 250 ML IV SCH (21:20)
[2017-07-15] MEDS ORDERED: ENOXAPARIN SODIUM 60 MG/0.6 ML SYRINGE SQ ONE (21:30)
[2017-07-15] MEDS ORDERED: MAGNESIUM SULFATE INJ 2 GM in SODIUM CHLORIDE 0.9% INJ 50 ML IV SCH (21:45)
[2017-07-16] VITALS (10 sets, daily range): BP systolic 121–171; BP diastolic 56–81; PULSE 60–72; RESP 12–20; TEMP 97.3–98.4; O2SAT 94–96
[2017-07-16] MEDS: NITROGLYCERIN 2% OINT 1 GM PACKET TOPICAL SCH ×4 (00:06→21:42)
[2017-07-16] MEDS: LEVOTHYROXINE SODIUM 50 MCG TAB PO SCH (05:12)
[2017-07-16 06:28] LABS: INTERNATIONAL NORMALIZED RATIO 1.1 RATIO; PROTHROMBIN TIME - PATIENT 12.1 SEC (9.8-11.6)
[2017-07-16 06:59] LABS: BICARBONATE 25.5 MEQ/L (21.0-32.0)
[2017-07-16] MEDS: METOPROLOL TARTRATE 50 MG TAB PO SCH ×2 (09:25→21:42)
[2017-07-16] MEDS: ASPIRIN 81 MG CHEW TAB CHEW SCH (09:25)
[2017-07-16] MEDS: CHOLECALCIFEROL (VIT D3) 1000 UNIT TAB PO SCH (09:26)
[2017-07-16] MEDS: PANTOPRAZOLE SOD 40 MG DELAYED RELEASE TAB PO SCH (09:26)
[2017-07-16] MEDS: CLOPIDOGREL 75 MG TAB PO SCH (09:26)
[2017-07-16] MEDS: ENOXAPARIN SODIUM 60 MG/0.6 ML SYRINGE SQ SCH ×2 (09:27→21:42)
--- NOTE | 2017-07-16 12:06 | EKG ---
Date Performed: 07/16/2017 Time Performed: 11:01:24 PTAGE: 87 years EKG: Atrial demand pacemaker Left axis deviation Poor R wave progression - probable normal varia nt Low QRS voltages in precordial leads Borderline ECG No significant change from prior electrocardio gram. NO PREVIOUS TRACING DOCTOR: Bismark Ruiz Interpretating Date/Time 07/16/2017 12:04:38
--- NOTE | 2017-07-16 14:54 | HHI.PR ---
Subjective Remarks Patient still has left eye vision loss, only can see a small piece on the periphery with left eye. Family states had some visual changes on the right eye yesterday, those have resolved denies any further chest discomfort. stable bp and vital signs Objective Vitals Vital Signs Date Time Temp Pulse Resp B/P (MAP) Pulse Ox O2 Delivery O2 Flow Rate FiO2 07/16/17 12:00 97.3 62 12 145/70 (95) 95 07/16/17 12:00 62 07/16/17 10:00 60 07/16/17 08:00 97.3 62 17 171/81 (111) 96 Manual Cuff/Auscultation 07/16/17 08:00 62 07/16/17 07:00 96 Bi-Pap 07/16/17 04:00 98.1 60 20 160/77 (104) 95 07/16/17 00:00 98.4 72 12 144/69 (94) 95 07/15/17 21:41 15 07/15/17 20:00 98.2 60 21 138/63 (88) 95 07/15/17 20:00 75 07/15/17 19:00 95 Room Air 07/15/17 16:00 98.2 61 26 158/70 (99) 99 I/O 07/15/17 07/15/17 07/15/17 07/16/17 07/16/17 07/16/17 07:00 15:00 23:00 07:00 15:00 23:00 Intake Total 350 ml 200 ml Balance 350 ml 200 ml Intake Oral 300 ml 200 ml IV Total 50 ml # Voids 2 2 3 # Bowel Movements 0 0 Result Diagram: 07/15/17 1705 07/16/17 0611 Imaging Last Impressions Head CTA 07/15/17 0000 Signed Impressions: Service Date/Time: Saturday, July 15, 2017 10:40 - CONCLUSION: Stable CT of the brain compared to the recent prior study. Adrian Mak MD Head CT 07/15/17 0000 Signed Impressions: Service Date/Time: Saturday, July 15, 2017 10:34 - CONCLUSION: Stable CT scan of the brain compared to 07/12/2017. Adrian Mak MD CT Angiography 07/13/17 0000 Signed Impressions: Service Date/Time: July 12:39 - CONCLUSION: 1. No pulmonary embolus is identified. 2. There are multiple enlarged, abnormal nodes seen within the right axilla suspicious for malignancy. These are abnormal in both size and number. 3. Small amount of fluid loculated in the fissure on the right. 4. COPD changes. Francis Billingsley MD Chest X-Ray 07/12/17 1332 Signed Impressions: Service Date/Time: Wednesday, July 12, 2017 13:47 - CONCLUSION: Compensated cardiomegaly otherwise negative . The portion of the bony skeleton visualized is unremarkable. Board Certified Radiologist. This report was verified electronically. Neck CTA 07/12/17 0000 Signed Impressions: Service Date/Time: Wednesday, July 12, 2017 19:09 - CONCLUSION: 1. Calcified plaques are seen at both bifurcations. 2. No focal or significant stenosis involving the internal carotid arteries. Adrian Mak MD Lower Extremity Ultrasound 07/12/17 0000 Signed Impressions: Service Date/Time: Wednesday, July 12, 2017 23:03 - CONCLUSION: Left knee Crane's cyst. No evidence of DVT in either leg Byron Enriquez MD Objective Remarks AAOx3 - awake and alert - follows commands NAD S1S2 RRR Facial droop and left hemiparesis much improved. There is central loss of vision int he right eye by confrontation exam. muscle strength is 5/5 in all extremities. Sensation intact in all extremities. Normal speech and memory. Abdomen is soft, nontender nondistended. Medications and IVs Current Medications Medications (Trade) Dose Ordered Sig/Suzi Route Start Time Stop Time Status Last Admin (Lipitor) 20 mg HS PO 07/12/17 21:00 07/15/17 19:56 (Vitamin D3) 1,000 units DAILY PO 07/13/17 09:00 07/16/17 09:26 (Synthroid) 50 mcg DAILY@0600 PO 07/13/17 06:00 07/16/17 05:12 (Singulair) 10 mg HS PO 07/12/17 21:00 07/15/17 19:56 (Protonix) 40 mg DAILY PO 07/12/17 19:15 07/16/17 09:26 (Aspirin Chew) 81 mg DAILY CHEW 07/13/17 18:30 07/16/17 09:25 (Tylenol) 650 mg Q4H PRN PO 07/14/17 20:45 07/15/17 20:41 (Plavix) 75 mg DAILY PO 07/15/17 10:30 07/16/17 09:26 (Zofran Inj) 4 mg Q6HR PRN IV PUSH 07/15/17 11:30 07/16/17 02:42 (Mag-Al Plus Susp Liq) 30 ml Q6H PRN PO 07/15/17 11:30 (Antivert) 25 mg Q8H PRN PO 07/15/17 13:30 07/16/17 00:47 (Duoneb Neb) 1 ampule Q2HR NEB PRN NEB 07/15/17 13:30 07/15/17 18:35 (Lopressor) 50 mg Q12HR PO 07/15/17 21:00 07/16/17 09:25 (Lovenox Inj) 60 mg Q12HR SQ 07/16/17 09:00 07/16/17 09:27 Magnesium Sulfate 2 gm/Sodium Chloride 54 ml @ 54 mls/hr UNSCH X1 IV 07/15/17 21:45 07/16/17 23:30 07/15/17 21:55 (Nitroglycerin 2% Oint) 0.5 inch Q8HR TOPICAL 07/16/17 14:00 07/16/17 14:13 Urinary Catheter: No Vascular Central Line Catheter: No A/P Problem List: (1) CVA (cerebral vascular accident) ICD Code: I63.9 - Cerebral infarction, unspecified Status: Acute (2) Elevated troponin ICD Code: R74.8 - Abnormal levels of other serum enzymes Status: Acute (3) CAD (coronary artery disease) ICD Code: I25.10 - Atherosclerotic heart disease of [place] coronary artery without angina pectoris Status: Chronic (4) Pulmonary HTN ICD Code: I27.20 - Pulmonary hypertension, unspecified Status: Acute (5) HTN (hypertension) ICD Code: I10 - Essential (primary) hypertension Status: Acute (6) Dyslipidemia ICD Code: E78.5 - Hyperlipidemia, unspecified Status: Chronic (7) Hypokalemia ICD Code: E87.6 - Hypokalemia (8) Central loss of vision ICD Code: H53.419 - Scotoma involving central area, unspecified eye Assessment and Plan (1) CVA (cerebral vascular accident) Plan: Is a 89-year-old female who presents to [facility] complaining of jaundice weakness in bilateral extremities. The onset of the problem was acute and the patient was worked up in emergency department and determined to have elevated troponins, for which the patient was started on IV heparin and then transferred to the main hospital in [place]. Upon arrival at the hospital in [place] the patient was noted to have a facial droop on the left side and left lower extremity weakness, so she decided to call stroke alert. The patient was admitted to the intensive care unit Neurology consulted CTA showed calcified plaques at both bifurcations but no focal significant stenosis involving the internal carotid arteries. CTA of the brain unremarkable. Head CT done upon presentation of the patient to the hospital showed no acute disease. Neurologic consulted. Recommendations appreciated. Patient not a TPA candidate given that the patient presented symptoms since 11:00 on the day of admission which is 8 hours after presentation. Etiology consulted as per neurology recommendations. Dr Smith evaluate the patient. Echocardiogram showed preserved left systolic function and no segmental wall motion abnormalities. Troponin is not trending. There is no evidence of acute myocardial infarction this time. Cardiology recommended a VQ scan, however CTA pulmonary angiogram was done which ruled out PE. 07/15 Patient started on Lovenox 1 mg /kg BID on 07/14 - first dose given last night. Heparin IV was discontinued. The patient presents side and right central loss of vision. 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 I will order stat head CT and CTA of the brain. The patient is on anticoagulation, therefore is not a candidate for TPA or any other procedure. Patient's blood pressures is in the 260's systolic for which eminence hydralazine IV once and when necessary-ordered. Continue to monitor vital signs. There are no events reported on telemetry, the patient has been on normal sinus rhythm. I will discontinue Lovenox and resume Plavix. If CT of the brain negative for acute bleed then will resume heparin IV tonight. I called neurologist on-call. Dr. Bearden responded to the call and explained the plan. States that he agrees with the plan. 07/16 Heparin Iv and Coumadin discontinued by cardiology. Patient started on Lovenox SQ BID as per cardiology order. Patient currently on Lovenox SQ, ASA and Coumadin. Discussed with Dr Bearden, continue current management. Ophtalmology consult placed by Dr Bearden on 07/16, still pending. (2) Elevated troponin ICD Code: R74.8 - Abnormal levels of other serum enzymes Status: Acute Plan: The patient was started on heparin for elevated cardiac enzymes. Cardiology consulted. The patient is chest pain-free. As per cardiology evaluation, medically clear evidence of myocardial infarction at this point. 07/14 Cardiac troponins peaked at 0.7, down to 0.2 today. Patient continues to be chest pain-free. Management as stated above. 07/15 patient with chest discomfort today. EKG obtained and reviewed by me shows normal sinus rhythm without ST-T changes, when compared to prior unchanged. I will order cardiac enzymes and trend, as well as Trental EKG. 07/16 Patient's troponin rised to a peak level of 1.63, now down trending and last level at 1.58. Patient currently on aspirin, Plavix, Nitropaste, Lovenox subcutaneously. Cardiology following. Follow-up recommendations. (3) CAD (coronary artery disease) ICD Code: I25.10 - Atherosclerotic heart disease of [place] coronary artery without angina pectoris Status: Chronic Plan: As above. (4) Pulmonary HTN ICD Code: I27.20 - Pulmonary hypertension, unspecified Status: Acute Plan: As seen on 2-D echocardiogram. Follow-up cardiology recommendations. (5) HTN (hypertension) ICD Code: I10 - Essential (primary) hypertension Status: Acute Plan: Permissive hypertension allowed. Antihypertensive medications discontinued. 07/14 I will start the patient on metoprolol 25 mg po twice a day which she was taking at home. Continue to monitor vital signs. 07/15 the patient has a systolic blood pressure in the 260s. Likely secondary to acute CVA. 10 mg IV hydralazine have been ordered. If BP still elevated we' ll place on a Cardizem drip to keep systolic blood pressure less than 200 but no less than 180 systolic to keep permissive hypertension. 07/16 blood pressure better controlled on metoprolol tartrate 50 minutes by mouth every 12 hours. (6) Dyslipidemia ICD Code: E78.5 - Hyperlipidemia, unspecified Status: Chronic Plan: Continue statin. Lipid profile shows triglycerides 112, total cholesterol 84, LDL cholesterol 24, HDL cholesterol of 37.9. (7) Hypokalemia ICD Code: E87.6 - Hypokalemia Plan: Mild hypokalemia. Replace orally and monitor BMP. (8) Central loss of vision ICD Code: H53.419 - Scotoma involving central area, unspecified eye Plan: Ration presents with acute central loss of vision of the right eye. Suspect due to ischemic CVA which could be embolic versus atherosclerotic. Patient has not had any episodes of atrial fibrillation on telemetry. Check stat CT and CTA of the brain. Case discussed with neurology on-call - Dr Bearden. CT head negative for acute bleed then will place back on IV heparin which the Coumadin with a goal INR 2-3. 07/16 Heparin not resumed. Dc'd by home advisor. Patient now on anticoagulation with Lovenox therapeutic dose, asa and Plavix. Ophthalmology consultation pending. GI prophylaxis: PPI. DVT prophylaxis: The patient on heparin IV. Discharge Planning Continue to monitor in intensive care unit for now. Problem Qualifiers (1) CAD (coronary artery disease): Qualified Codes: I25.10 - Atherosclerotic heart disease of [place] coronary artery without angina pectoris (2) HTN (hypertension): Qualified Codes: I10 - Essential (primary) hypertension (3) Central loss of vision: Qualified Codes: H53.411 - Scotoma involving central area, right eye Rad Monteiro MD Jul 16, 2017 14:54
[2017-07-16] MEDS: ACETAMINOPHEN 325 MG TAB PO PRN (15:20)
--- NOTE | 2017-07-16 18:34 | HHI.PR ---
Review/Management Daily Summary 07/[address] Gaffney called about visual loss today, spoke with RN and dr Torrez on exam she can see minimally on lower peripheral field OD, no loss OS slight pupillary afferent defect OD unable to see disks well no hemiparesis ct brain and repeat cta head normal BP was severely up unable to get ophtalmo to see today on multiple thinners, was on lovenox yesterday ESR normal 07/12 need eye exam for retina eval, ischemia vs hemorrhagic event continue current care 07/16 she is describing same deficits slept well, resred this pm family at bedside OD visual loss severe pending ophtalmo, discussed with family and primary care dr Subjective Subjective Comments unchanged Active Medications Current Medications Medications (Trade) Dose Ordered Sig/Suzi Route Start Time Stop Time Status Last Admin (Lipitor) 20 mg HS PO 07/12/17 21:00 07/15/17 19:56 (Vitamin D3) 1,000 units DAILY PO 07/13/17 09:00 07/16/17 09:26 (Synthroid) 50 mcg DAILY@0600 PO 07/13/17 06:00 07/16/17 05:12 (Singulair) 10 mg HS PO 07/12/17 21:00 07/15/17 19:56 (Protonix) 40 mg DAILY PO 07/12/17 19:15 07/16/17 09:26 (Aspirin Chew) 81 mg DAILY CHEW 07/13/17 18:30 07/16/17 09:25 (Tylenol) 650 mg Q4H PRN PO 07/14/17 20:45 07/16/17 15:20 (Plavix) 75 mg DAILY PO 07/15/17 10:30 07/16/17 09:26 (Zofran Inj) 4 mg Q6HR PRN IV PUSH 07/15/17 11:30 07/16/17 02:42 (Mag-Al Plus Susp Liq) 30 ml Q6H PRN PO 07/15/17 11:30 (Antivert) 25 mg Q8H PRN PO 07/15/17 13:30 07/16/17 00:47 (Duoneb Neb) 1 ampule Q2HR NEB PRN NEB 07/15/17 13:30 07/15/17 18:35 (Lopressor) 50 mg Q12HR PO 07/15/17 21:00 07/16/17 09:25 (Lovenox Inj) 60 mg Q12HR SQ 07/16/17 09:00 07/16/17 09:27 Magnesium Sulfate 2 gm/Sodium Chloride 54 ml @ 54 mls/hr UNSCH X1 IV 07/15/17 21:45 07/16/17 23:30 07/15/17 21:55 (Nitroglycerin 2% Oint) 0.5 inch Q8HR TOPICAL 07/16/17 14:00 07/16/17 14:13 Allergies Allergies Coded Allergies No Known Allergies (Eqhkzyipjm73/11/17) Exam I&O / VS Vital Signs Date Time Temp Pulse Resp B/P (MAP) Pulse Ox O2 Delivery O2 Flow Rate FiO2 07/16/17 16:00 97.7 60 19 121/56 (77) 94 07/16/17 16:00 60 07/16/17 14:00 60 07/16/17 12:00 97.3 62 12 145/70 (95) 95 07/16/17 12:00 62 07/16/17 10:00 60 07/16/17 08:00 97.3 62 17 171/81 (111) 96 Manual Cuff/Auscultation 07/16/17 08:00 62 07/16/17 07:00 96 Bi-Pap 07/16/17 04:00 98.1 60 20 160/77 (104) 95 07/16/17 00:00 98.4 72 12 144/69 (94) 95 07/15/17 21:41 15 07/15/17 20:00 98.2 60 21 138/63 (88) 95 07/15/17 20:00 75 07/15/17 19:00 95 Room Air Objective Micro and Labs Laboratory Tests Test 07/16/17 00:18 07/16/17 06:11 Total Creatine Kinase 80 Troponin I 1.63 1.58 Prothrombin Time 12.1 Prothromb Time International Ratio 1.1 Blood Urea Nitrogen 10 Creatinine 0.68 Random Glucose 100 Calcium Level 8.7 Magnesium Level 2.0 Sodium Level 135 Potassium Level 4.0 Chloride Level 103 Carbon Dioxide Level 25.5 Anion Gap 7 Estimat Glomerular Filtration Rate 82 Date/Time Source Procedure Growth Status 07/15/17 06:00 Stool Stool Stool Occult Blood (BRYNN) - Final HEMOCCULT NEGATIVE Complete Suleiman,Olimpio F. MD Jul 16, 2017 18:34
[2017-07-16] MEDS: ATORVASTATIN 20 MG TAB PO SCH (21:42)
[2017-07-16] MEDS: MONTELUKAST SODIUM 10 MG TAB PO SCH (21:44)
[2017-07-17] VITALS (10 sets, daily range): BP systolic 121–147; BP diastolic 56–66; PULSE 60–62; RESP 14–18; TEMP 97.3–98.6; O2SAT 93–98
[2017-07-17] MEDS: ACETAMINOPHEN 325 MG TAB PO PRN ×3 (04:36→22:36)
[2017-07-17 05:21] LABS: AUTOMATED NEUTROPHIL # 4.4 TH/MM3 (1.8-7.7); BASOPHIL % 0.6 % (0.0-2.0); EOSINOPHIL # 0.3 TH/MM3 (0-0.4); EOSINOPHIL % 5.2 % (0.0-4.0); HEMATOCRIT 40.7 % (35.0-46.0); HEMO FLAGS DIFF FINAL; LYMPHOCYTE # 0.9 TH/MM3 (1.0-4.8); MEAN CELL VOLUME 93.7 FL (80.0-100.0); MEAN CORPUSCULAR HEMOGLOBIN 32.2 PG (27.0-34.0); MEAN CORPUSCULAR HGB CONC 34.3 % (32.0-36.0); MONO % 7.4 % (0.0-8.0); NEUT % 72.8 % (16.0-70.0); PLATELET COUNT 158 TH/MM3 (150-450); RED BLOOD COUNT 4.34 MIL/MM3 (4.00-5.30); RED CELL DISTRIBUTION WIDTH 14.1 % (11.6-17.2); WHITE BLOOD COUNT 6.1 TH/MM3 (4.0-11.0)
[2017-07-17] MEDS: NITROGLYCERIN 2% OINT 1 GM PACKET TOPICAL SCH ×3 (05:30→21:06)
[2017-07-17] MEDS: LEVOTHYROXINE SODIUM 50 MCG TAB PO SCH (05:30)
[2017-07-17 05:33] LABS: INTERNATIONAL NORMALIZED RATIO 1.1 RATIO; PROTHROMBIN TIME - PATIENT 12.2 SEC (9.8-11.6)
[2017-07-17 05:52] LABS: ANION GAP 9 MEQ/L (5-15); AST (GOT) 27 U/L (15-37); BICARBONATE 25.6 MEQ/L (21.0-32.0); BLOOD UREA NITROGEN 16 MG/DL (7-18); CHLORIDE 99 MEQ/L (98-107); GLOMERULAR FILTRATION RATE 63 ML/MIN (>89); POTASSIUM 4.5 MEQ/L (3.5-5.1); SODIUM (NA) 134 MEQ/L (136-145)
[2017-07-17 05:53] LABS: ALT (GPT) 27 U/L (10-53)
[2017-07-17 05:57] LABS: ALKALINE PHOSPHATASE 75 U/L (45-117); TOTAL BILIRUBIN ADULT 0.7 MG/DL (0.2-1.0)
[2017-07-17] MEDS: METOPROLOL TARTRATE 50 MG TAB PO SCH ×2 (08:44→21:06)
[2017-07-17] MEDS: CHOLECALCIFEROL (VIT D3) 1000 UNIT TAB PO SCH (08:44)
[2017-07-17] MEDS: ASPIRIN 81 MG CHEW TAB CHEW SCH (08:44)
[2017-07-17] MEDS: PANTOPRAZOLE SOD 40 MG DELAYED RELEASE TAB PO SCH (08:44)
[2017-07-17] MEDS: ENOXAPARIN SODIUM 60 MG/0.6 ML SYRINGE SQ SCH ×2 (08:45→21:06)
[2017-07-17] MEDS: CLOPIDOGREL 75 MG TAB PO SCH (08:45)
--- NOTE | 2017-07-17 09:51 | PD.ONC.PN ---
Subjective Subjective Remarks Afebrile overnight. Patient resting in room in [facility]. Over the weekend she developed loss of vision in her left eye. She is still waiting to see the opthalmologist. Daughter at bedside confirms plan is the same to follow up with her oncologist in [place] after discharge. Does not want any oncology workup while inpatient. Objective Data Date Time Temp Pulse Resp B/P (MAP) Pulse Ox O2 Delivery O2 Flow Rate FiO2 07/17/17 06:00 60 07/17/17 04:00 60 07/17/17 04:00 97.5 60 14 126/60 (82) 98 07/17/17 02:00 60 07/17/17 00:00 60 07/17/17 00:00 97.5 60 14 147/66 (93) 94 07/16/17 22:00 60 07/16/17 20:00 60 07/16/17 20:00 97.5 60 18 125/58 (80) 95 07/16/17 19:00 95 Room Air 07/16/17 18:00 60 07/16/17 16:00 97.7 60 19 121/56 (77) 94 07/16/17 16:00 60 07/16/17 14:00 60 07/16/17 12:00 97.3 62 12 145/70 (95) 95 07/16/17 12:00 62 07/16/17 10:00 60 07/17/17 07/17/17 07/17/17 07:00 15:00 23:00 Intake Total 720 ml Balance 720 ml Result Diagram: 07/17/17 0448 07/17/17 0448 Laboratory Results Laboratory Tests Test 07/17/17 04:48 White Blood Count 6.1 TH/MM3 Red Blood Count 4.34 MIL/MM3 Hemoglobin 14.0 GM/DL Hematocrit 40.7 % Mean Corpuscular Volume 93.7 FL Mean Corpuscular Hemoglobin 32.2 PG Mean Corpuscular Hemoglobin Concent 34.3 % Red Cell Distribution Width 14.1 % Platelet Count 158 TH/MM3 Mean Platelet Volume 7.8 FL Neutrophils (%) (Auto) 72.8 % Lymphocytes (%) (Auto) 14.0 % Monocytes (%) (Auto) 7.4 % Eosinophils (%) (Auto) 5.2 % Basophils (%) (Auto) 0.6 % Neutrophils # (Auto) 4.4 TH/MM3 Lymphocytes # (Auto) 0.9 TH/MM3 Monocytes # (Auto) 0.4 TH/MM3 Eosinophils # (Auto) 0.3 TH/MM3 Basophils # (Auto) 0.0 TH/MM3 CBC Comment DIFF FINAL Differential Comment Prothrombin Time 12.2 SEC Prothromb Time International Ratio 1.1 RATIO Blood Urea Nitrogen 16 MG/DL Creatinine 0.85 MG/DL Random Glucose 97 MG/DL Total Protein 6.7 GM/DL Albumin 3.5 GM/DL Calcium Level 9.2 MG/DL Alkaline Phosphatase 75 U/L Aspartate Amino Transf (AST/SGOT) 27 U/L Alanine Aminotransferase (ALT/SGPT) 27 U/L Total Bilirubin 0.7 MG/DL Sodium Level 134 MEQ/L Potassium Level 4.5 MEQ/L Chloride Level 99 MEQ/L Carbon Dioxide Level 25.6 MEQ/L Anion Gap 9 MEQ/L Estimat Glomerular Filtration Rate 63 ML/MIN Troponin I 0.70 NG/ML Culture Results Microbiology Date/Time Source Procedure Growth Status 07/15/17 06:00 Stool Stool Stool Occult Blood (BRYNN) - Final HEMOCCULT NEGATIVE Complete Administered Medications Medications (Trade) Dose Ordered Sig/Suzi Route PRN Reason Start Time Stop Time Status Last Admin Dose Admin Atorvastatin Calcium (Lipitor) 20 mg HS PO 07/12/17 21:00 07/16/17 21:42 Cholecalciferol (Vitamin D3) 1,000 units DAILY PO 07/13/17 09:00 07/17/17 08:44 Levothyroxine Sodium (Synthroid) 50 mcg DAILY@0600 PO 07/13/17 06:00 07/17/17 05:30 Montelukast Sodium (Singulair) 10 mg HS PO 07/12/17 21:00 07/16/17 21:44 Pantoprazole Sodium (Protonix) 40 mg DAILY PO 07/12/17 19:15 07/17/17 08:44 Aspirin (Aspirin Chew) 81 mg DAILY CHEW 07/13/17 18:30 07/17/17 08:44 Acetaminophen (Tylenol) 650 mg Q4H PRN PO fever, [place], pain <5 07/14/17 20:45 07/17/17 04:36 Clopidogrel Bisulfate (Plavix) 75 mg DAILY PO 07/15/17 10:30 07/17/17 08:45 Ondansetron HCl (Zofran Inj) 4 mg Q6HR PRN IV PUSH NAUSEA OR VOMITING 07/15/17 11:30 07/16/17 02:42 Meclizine HCl (Antivert) 25 mg Q8H PRN PO VERTIGO 07/15/17 13:30 07/16/17 00:47 Albuterol/ Ipratropium (Duoneb Neb) 1 ampule Q2HR NEB PRN NEB SOB/WHEEZING 07/15/17 13:30 07/15/17 18:35 Metoprolol Tartrate (Lopressor) 50 mg Q12HR PO 07/15/17 21:00 07/17/17 08:44 Enoxaparin Sodium (Lovenox Inj) 60 mg Q12HR SQ 07/16/17 09:00 07/17/17 08:45 Nitroglycerin (Nitroglycerin 2% Oint) 0.5 inch Q8HR TOPICAL 07/16/17 14:00 07/17/17 05:30 Objective Remarks GENERAL: Middle aged female upright in bed in [facility]. SKIN: Warm and dry. HEAD: Normocephalic. EYES: No injection or drainage. NECK: Supple, trachea midline. CARDIOVASCULAR: Regular rate and rhythm RESPIRATORY: Breath sounds equal bilaterally. No accessory muscle use. GASTROINTESTINAL: Abdomen soft, non-tender, nondistended. EXTREMITIES: No cyanosis MUSCULOSKELETAL: Adequate muscle tone. NEUROLOGICAL: awake and alert. left sided weakness. Assessment/Plan Problem List: (1) Lymphadenopathy, axillary ICD Codes: R59.0 - Localized enlarged lymph nodes Plan: --Lymphadenopathy in the right axilla. --has a known history of non-Hodgkin's trauma. 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 --was treated with Rituxan with good treatment response. --currently under observation. --follows with an oncologist in [place], [place]. --patient's daughters intend on taking this patient with them back to [place], [place]. Since the patient has an established oncologist, would not recommend any further workup here and [place]. The patient will follow up with her oncologist in [place], [place]. (2) CVA (cerebral vascular accident) ICD Codes: I63.9 - Cerebral infarction, unspecified Status: Acute Plan: --on Lovenox, ASA, and Plavix --CVA with a background of coronary artery disease. --cardiology following-->cardioembolic stroke. Assessment 87y/o female with acute stroke and history of non-Hodgkin lymphoma. --history of cardiac disease with five cardiac stent placements, history of pacemaker, pulmonary hypertension, hyperlipidemia and hypertension history of low grade non-Hodgkin's lymphoma Plan 1. continue Lovenox 2. monitor CBC 3. follow up with oncologist once discharged Attending Statement The exam, history, and the medical decision-making described in the above note were completed with the assistance of the mid-level provider. I reviewed and agree with the findings presented. I attest that I had a [id number] encounter with the patient on the same day, and personally performed and documented my assessment and findings in the medical record. Beckie Willams Jul 17, 2017 09:51 Gerson Alvarez MD Jul 17, 2017 18:14
[2017-07-17] MEDS: RESP: ALBUTEROL 2.5 MG/IPRATROPIUM 0.5 MG NEB (PRN) NEB ×2 (11:21→21:48)
--- NOTE | 2017-07-17 11:26 | HHI.PR ---
Subjective Remarks no major overnight events. Patient states that she feels drowsy. As per daughters who are at bedside the patient woke up earlier than usual today at 4 am. Patient also c/o having a floater on the left eye denies chest discomfort or pain denies any new weakness or neurological deficit. Objective Vitals Vital Signs Date Time Temp Pulse Resp B/P (MAP) Pulse Ox O2 Delivery O2 Flow Rate FiO2 07/17/17 06:00 60 07/17/17 04:00 60 07/17/17 04:00 97.5 60 14 126/60 (82) 98 07/17/17 02:00 60 07/17/17 00:00 60 07/17/17 00:00 97.5 60 14 147/66 (93) 94 07/16/17 22:00 60 07/16/17 20:00 60 07/16/17 20:00 97.5 60 18 125/58 (80) 95 07/16/17 19:00 95 Room Air 07/16/17 18:00 60 07/16/17 16:00 97.7 60 19 121/56 (77) 94 07/16/17 16:00 60 07/16/17 14:00 60 07/16/17 12:00 97.3 62 12 145/70 (95) 95 07/16/17 12:00 62 I/O 07/16/17 07/16/17 07/16/17 07/17/17 07/17/17 07/17/17 07:00 15:00 23:00 07:00 15:00 23:00 Intake Total 200 ml 720 ml 720 ml Balance 200 ml 720 ml 720 ml Intake Oral 200 ml 720 ml 720 ml # Voids 3 5 4 # Bowel Movements 0 0 0 Result Diagram: 07/17/17 0448 07/17/17 0448 Imaging Last Impressions Head CTA 07/15/17 0000 Signed Impressions: Service Date/Time: Saturday, July 15, 2017 10:40 - CONCLUSION: Stable CT of the brain compared to the recent prior study. Adrian Mak MD Head CT 07/15/17 0000 Signed Impressions: Service Date/Time: Saturday, July 15, 2017 10:34 - CONCLUSION: Stable CT scan of the brain compared to 07/12/2017. Adrian Mak MD CT Angiography 07/13/17 0000 Signed Impressions: Service Date/Time: July 12:39 - CONCLUSION: 1. No pulmonary embolus is identified. 2. There are multiple enlarged, abnormal nodes seen within the right axilla suspicious for malignancy. These are abnormal in both size and number. 3. Small amount of fluid loculated in the fissure on the right. 4. COPD changes. Francis Billingsley MD Chest X-Ray 07/12/17 1332 Signed Impressions: Service Date/Time: Wednesday, July 12, 2017 13:47 - CONCLUSION: Compensated cardiomegaly otherwise negative . The portion of the bony skeleton visualized is unremarkable. Board Certified Radiologist. This report was verified electronically. Neck CTA 07/12/17 0000 Signed Impressions: Service Date/Time: Wednesday, July 12, 2017 19:09 - CONCLUSION: 1. Calcified plaques are seen at both bifurcations. 2. No focal or significant stenosis involving the internal carotid arteries. Adrian Mak MD Lower Extremity Ultrasound 07/12/17 0000 Signed Impressions: Service Date/Time: Wednesday, July 12, 2017 23:03 - CONCLUSION: Left knee Crane's cyst. No evidence of DVT in either leg Byron Enriquez MD Objective Remarks AAOx3 - awake and alert - follows commands NAD S1S2 RRR Facial droop and left hemiparesis much improved. There is central loss of vision int he right eye by confrontation exam. muscle strength is 5/5 in all extremities. Sensation intact in all extremities. Normal speech and memory. Abdomen is soft, nontender nondistended. Procedures none Medications and IVs Current Medications Medications (Trade) Dose Ordered Sig/Suzi Route Start Time Stop Time Status Last Admin (Lipitor) 20 mg HS PO 07/12/17 21:00 07/16/17 21:42 (Vitamin D3) 1,000 units DAILY PO 07/13/17 09:00 07/17/17 08:44 (Synthroid) 50 mcg DAILY@0600 PO 07/13/17 06:00 07/17/17 05:30 (Singulair) 10 mg HS PO 07/12/17 21:00 07/16/17 21:44 (Protonix) 40 mg DAILY PO 07/12/17 19:15 07/17/17 08:44 (Aspirin Chew) 81 mg DAILY CHEW 07/13/17 18:30 07/17/17 08:44 (Tylenol) 650 mg Q4H PRN PO 07/14/17 20:45 07/17/17 04:36 (Plavix) 75 mg DAILY PO 07/15/17 10:30 07/17/17 08:45 (Zofran Inj) 4 mg Q6HR PRN IV PUSH 07/15/17 11:30 07/16/17 02:42 (Mag-Al Plus Susp Liq) 30 ml Q6H PRN PO 07/15/17 11:30 (Antivert) 25 mg Q8H PRN PO 07/15/17 13:30 07/16/17 00:47 (Duoneb Neb) 1 ampule Q2HR NEB PRN NEB 07/15/17 13:30 07/15/17 18:35 (Lopressor) 50 mg Q12HR PO 07/15/17 21:00 07/17/17 08:44 (Lovenox Inj) 60 mg Q12HR SQ 07/16/17 09:00 07/17/17 08:45 (Nitroglycerin 2% Oint) 0.5 inch Q8HR TOPICAL 07/16/17 14:00 07/17/17 05:30 A/P Problem List: (1) CVA (cerebral vascular accident) ICD Code: I63.9 - Cerebral infarction, unspecified Status: Acute (2) Elevated troponin ICD Code: R74.8 - Abnormal levels of other serum enzymes Status: Acute (3) CAD (coronary artery disease) ICD Code: I25.10 - Atherosclerotic heart disease of [place] coronary artery without angina pectoris Status: Chronic (4) Pulmonary HTN ICD Code: I27.20 - Pulmonary hypertension, unspecified Status: Acute (5) HTN (hypertension) ICD Code: I10 - Essential (primary) hypertension Status: Acute (6) Dyslipidemia ICD Code: E78.5 - Hyperlipidemia, unspecified Status: Chronic (7) Hypokalemia ICD Code: E87.6 - Hypokalemia (8) Central loss of vision ICD Code: H53.419 - Scotoma involving central area, unspecified eye Assessment and Plan (1) CVA (cerebral vascular accident) Plan: Is a 89-year-old female who presents to [facility] complaining of jaundice weakness in bilateral extremities. The onset of the problem was acute and the patient was worked up in emergency department and determined to have elevated troponins, for which the patient was started on IV heparin and then transferred to the main hospital in [place]. Upon arrival at the hospital in [place] the patient was noted to have a facial droop on the left side and left lower extremity weakness, so she decided to call stroke alert. The patient was admitted to the intensive care unit Neurology consulted CTA showed calcified plaques at both bifurcations but no focal significant stenosis involving the internal carotid arteries. CTA of the brain unremarkable. Head CT done upon presentation of the patient to the hospital showed no acute disease. Neurologic consulted. Recommendations appreciated. Patient not a TPA candidate given that the patient presented symptoms since 11:00 on the day of admission which is 8 hours after presentation. Etiology consulted as per neurology recommendations. Dr Smith evaluate the patient. Echocardiogram showed preserved left systolic function and no segmental wall motion abnormalities. Troponin is not trending. There is no evidence of acute myocardial infarction this time. Cardiology recommended a VQ scan, however CTA pulmonary angiogram was done which ruled out PE. 07/15 Patient started on Lovenox 1 mg /kg BID on 07/14 - first dose given last night. Heparin IV was discontinued. The patient presents side and right central loss of vision. 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 I will order stat head CT and CTA of the brain. The patient is on anticoagulation, therefore is not a candidate for TPA or any other procedure. Patient's blood pressures is in the 260's systolic for which eminence hydralazine IV once and when necessary-ordered. Continue to monitor vital signs. There are no events reported on telemetry, the patient has been on normal sinus rhythm. I will discontinue Lovenox and resume Plavix. If CT of the brain negative for acute bleed then will resume heparin IV tonight. I called neurologist on-call. Dr. Bearden responded to the call and explained the plan. States that he agrees with the plan. 07/16 Heparin Iv and Coumadin discontinued by cardiology. Patient started on Lovenox SQ BID as per cardiology order. Patient currently on Lovenox SQ, ASA and Coumadin. Discussed with Dr Bearden, continue current management. Ophtalmology consult placed by Dr Bearden on 07/16, still pending. 07/17 no new neurological deficits. Continue Lovenox 60 mg subcutaneously twice a day. Continue aspirin, Plavix. Continue to follow [place] recommendations. Continue PT. (2) Elevated troponin ICD Code: R74.8 - Abnormal levels of other serum enzymes Status: Acute Plan: The patient was started on heparin for elevated cardiac enzymes. Cardiology consulted. The patient is chest pain-free. As per cardiology evaluation, medically clear evidence of myocardial infarction at this point. 07/14 Cardiac troponins peaked at 0.7, down to 0.2 today. Patient continues to be chest pain-free. Management as stated above. 07/15 patient with chest discomfort today. EKG obtained and reviewed by me shows normal sinus rhythm without ST-T changes, when compared to prior unchanged. I will order cardiac enzymes and trend, as well as Trental EKG. 07/16 Patient's troponin rised to a peak level of 1.63, now down trending and last level at 1.58. Patient currently on aspirin, Plavix, Nitropaste, Lovenox subcutaneously. Cardiology following. Follow-up recommendations. 07/17 troponin trended down to 0.7 today. Follow-up cardiology recommendations. (3) CAD (coronary artery disease) ICD Code: I25.10 - Atherosclerotic heart disease of pe[place]anga coronary artery without angina pectoris Status: Chronic Plan: As above. (4) Pulmonary HTN ICD Code: I27.20 - Pulmonary hypertension, unspecified Status: Acute Plan: As seen on 2-D echocardiogram. Follow-up cardiology recommendations. (5) HTN (hypertension) ICD Code: I10 - Essential (primary) hypertension Status: Acute Plan: Permissive hypertension allowed. Antihypertensive medications discontinued. 07/14 I will start the patient on metoprolol 25 mg po twice a day which she was taking at home. Continue to monitor vital signs. 07/15 the patient has a systolic blood pressure in the 260s. Likely secondary to acute CVA. 10 mg IV hydralazine have been ordered. If BP still elevated we' ll place on a Cardizem drip to keep systolic blood pressure less than 200 but no less than 180 systolic to keep permissive hypertension. 07/16 blood pressure better controlled on metoprolol tartrate 50 milligrams by mouth every 12 hours. (6) Dyslipidemia ICD Code: E78.5 - Hyperlipidemia, unspecified Status: Chronic Plan: Continue statin. Lipid profile shows triglycerides 112, total cholesterol 84, LDL cholesterol 24, HDL cholesterol of 37.9. (7) Hypokalemia ICD Code: E87.6 - Hypokalemia Plan: Mild hypokalemia. Replace orally and monitor BMP. (8) Central loss of vision ICD Code: H53.419 - [place]oma involving central area, unspecified eye Plan: Ration presents with acute central loss of vision of the right eye. Suspect due to ischemic CVA which could be embolic versus atherosclerotic. Patient has not had any episodes of atrial fibrillation on telemetry. Check stat CT and CTA of the brain. Case discussed with neurology on-call - Dr Bearden. CT head negative for acute bleed then will place back on IV heparin which the Coumadin with a goal INR 2-3. 07/16 Heparin not resumed. Dc'd by network services project manager. Patient now on anticoagulation with Lovenox therapeutic dose, asa and Plavix. Ophthalmology consultation pending. 07/17 ophthalmology consultation pending. I discussed the case over the phone this morning with Dr. Awad. She said that she is was going to evaluate patient later today. GI prophylaxis: PPI. DVT prophylaxis: The patient on heparin IV. Discharge Planning Okay to transfer to the medical floor. Problem Qualifiers (1) CAD (coronary artery disease): Qualified Codes: I25.10 - Atherosclerotic heart disease of [place] coronary artery without angina pectoris (2) HTN (hypertension): Qualified Codes: I10 - Essential (primary) hypertension (3) Central loss of vision: Qualified Codes: H53.411 - [place] involving central area, right eye Rad Monteiro MD Jul 17, 2017 11:26
--- NOTE | 2017-07-17 14:21 | PD.CONS ---
History of Present Illness Service Ophthalmology Consult Requested By Dr. Bearden Reason for Consult decreased vision right eye Primary Care Physician Non-Staff Diagnoses: History of Present Illness 87 yo F with h/o of hypertension, hypercholesterolemia, five cardiac stents, pacemaker, pulmonary hypertension, and lymphoma. Presented to ED on 07/12/17 with left sided weakness and facial droop. Found to have elevated troponin but no VA. She was started on ASA and Coumadin. 2 days ago she noticed her right eye vision completely gone within a 10 min period. No pain, no flashes, no floaters. She has also noticed a clear circular spot in her left eye over the last 2 days. Ocular history significant for cataract surgery OU, and dry eye. 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 ROS for GCA negative. Past Family Social History Allergies: Coded Allergies: No Known Allergies (Unverified , 07/12/17) Physical Exam Vital Signs Vital Signs Date Time Temp Pulse Resp B/P (MAP) Pulse Ox O2 Delivery O2 Flow Rate FiO2 07/17/17 12:00 60 07/17/17 12:00 97.5 60 15 121/57 (78) 93 07/17/17 10:00 62 07/17/17 08:00 97.3 60 17 135/63 (87) 94 07/17/17 08:00 60 07/17/17 07:00 94 Room Air 07/17/17 06:00 60 07/17/17 04:00 60 07/17/17 04:00 97.5 60 14 126/60 (82) 98 07/17/17 02:00 60 07/17/17 00:00 60 07/17/17 00:00 97.5 60 14 147/66 (93) 94 07/16/17 22:00 60 07/16/17 20:00 60 07/16/17 20:00 97.5 60 18 125/58 (80) 95 07/16/17 19:00 95 Room Air 07/16/17 18:00 60 07/16/17 16:00 97.7 60 19 121/56 (77) 94 07/16/17 16:00 60 07/16/17 14:00 60 Physical Exam Va sc at near OD LP, OS 20/40 EOM full OU, no diplopia CVF full OU Pupils 2-1, +APD OD IOP normal to palpation OU Anterior exam OD - normal eyelid, C/S W&Q, K clear, AC deep, pupil round, PCIOL OS - normal eyelid, C/S W&Q, K clear, AC deep, pupil round, PCIOL Dilated exam OD - ON s/p/f, ves normal, vit clear, retina whitening with central benitez red spot OS - ON s/p/f, ves normal, PVD, retina flat Laboratory Laboratory Tests Test 07/17/17 04:48 White Blood Count 6.1 Red Blood Count 4.34 Hemoglobin 14.0 Hematocrit 40.7 Mean Corpuscular Volume 93.7 Mean Corpuscular Hemoglobin 32.2 Mean Corpuscular Hemoglobin Concent 34.3 Red Cell Distribution Width 14.1 Platelet Count 158 Mean Platelet Volume 7.8 Neutrophils (%) (Auto) 72.8 Lymphocytes (%) (Auto) 14.0 Monocytes (%) (Auto) 7.4 Eosinophils (%) (Auto) 5.2 Basophils (%) (Auto) 0.6 Neutrophils # (Auto) 4.4 Lymphocytes # (Auto) 0.9 Monocytes # (Auto) 0.4 Eosinophils # (Auto) 0.3 Basophils # (Auto) 0.0 CBC Comment DIFF FINAL Differential Comment Prothrombin Time 12.2 Prothromb Time International Ratio 1.1 Blood Urea Nitrogen 16 Creatinine 0.85 Random Glucose 97 Total Protein 6.7 Albumin 3.5 Calcium Level 9.2 Alkaline Phosphatase 75 Aspartate Amino Transf (AST/SGOT) 27 Alanine Aminotransferase (ALT/SGPT) 27 Total Bilirubin 0.7 Sodium Level 134 Potassium Level 4.5 Chloride Level 99 Carbon Dioxide Level 25.6 Anion Gap 9 Estimat Glomerular Filtration Rate 63 Troponin I 0.70 Date/Time Source Procedure Growth Status 07/15/17 06:00 Stool Stool Stool Occult Blood (BRYNN) - Final HEMOCCULT NEGATIVE Complete Result Diagram: 07/17/178 07/17/17447 Assessment and Plan Problem List: (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 Find underlying cause to prevent this from happening to other eye. Neck CTA did not show significant plaques or stenosis. ROS for GCA symptoms was negative and ESR was 7, so this is unlikely. Consider Echocardiogram. Have advised patient and family that she needs to follow up with her scout professional sports when she returns to [place] - neovascularization of the retina is a complication that can happen after CRAO and needs to be watched for closely. (2) PVD (posterior vitreous detachment), left eye ICD Codes: H43.812 - Vitreous degeneration, left eye Plan: No tears or detachment seen on exam. Signs and symptoms of retinal detachment explained. Silvia Awad MD Jul 17, 2017 14:21
--- NOTE | 2017-07-17 16:44 | PD.CARD.PN ---
Subjective Subjective Remarks No angina or CHF symptoms, R eye central vision loss c/w a second CVA Objective Medications Current Medications Medications (Trade) Dose Ordered Sig/Suzi Route Start Time Stop Time Status Last Admin (Lipitor) 20 mg HS PO 07/12/17 21:00 07/16/17 21:42 (Vitamin D3) 1,000 units DAILY PO 07/13/17 09:00 07/17/17 08:44 (Synthroid) 50 mcg DAILY@0600 PO 07/13/17 06:00 07/17/17 05:30 (Singulair) 10 mg HS PO 07/12/17 21:00 07/16/17 21:44 (Protonix) 40 mg DAILY PO 07/12/17 19:15 07/17/17 08:44 (Aspirin Chew) 81 mg DAILY CHEW 07/13/17 18:30 07/17/17 08:44 (Tylenol) 650 mg Q4H PRN PO 07/14/17 20:45 07/17/17 14:55 (Plavix) 75 mg DAILY PO 07/15/17 10:30 07/17/17 08:45 (Zofran Inj) 4 mg Q6HR PRN IV PUSH 07/15/17 11:30 07/16/17 02:42 (Mag-Al Plus Susp Liq) 30 ml Q6H PRN PO 07/15/17 11:30 (Antivert) 25 mg Q8H PRN PO 07/15/17 13:30 07/16/17 00:47 (Duoneb Neb) 1 ampule Q2HR NEB PRN NEB 07/15/17 13:30 07/17/17 11:21 (Lopressor) 50 mg Q12HR PO 07/15/17 21:00 07/17/17 08:44 (Lovenox Inj) 60 mg Q12HR SQ 07/16/17 09:00 07/17/17 08:45 (Nitroglycerin 2% Oint) 0.5 inch Q8HR TOPICAL 07/16/17 14:00 07/17/17 14:47 Vital Signs / I&O Vital Signs Date Time Temp Pulse Resp B/P (MAP) Pulse Ox O2 Delivery O2 Flow Rate FiO2 07/17/17 12:00 60 07/17/17 12:00 97.5 60 15 121/57 (78) 93 07/17/17 10:00 62 07/17/17 08:00 97.3 60 17 135/63 (87) 94 07/17/17 08:00 60 07/17/17 07:00 94 Room Air 07/17/17 06:00 60 07/17/17 04:00 60 07/17/17 04:00 97.5 60 14 126/60 (82) 98 07/17/17 02:00 60 07/17/17 00:00 60 07/17/17 00:00 97.5 60 14 147/66 (93) 94 07/16/17 22:00 60 07/16/17 20:00 60 07/16/17 20:00 97.5 60 18 125/58 (80) 95 07/16/17 19:00 95 Room Air 07/16/17 18:00 60 I/O 07/16/17 07/16/17 07/16/17 07/17/17 07/17/17 07/17/17 06:59 14:59 22:59 06:59 14:59 22:59 Intake Total 200 ml 720 ml 720 ml Balance 200 ml 720 ml 720 ml Intake Oral 200 ml 720 ml 720 ml # Voids 3 5 4 # Bowel Movements 0 0 0 Physical Exam GENERAL: In NAD SKIN: Warm and dry. HEAD: Normocephalic. EYES: No scleral icterus. No injection or drainage. NECK: Supple, trachea midline. No JVD or lymphadenopathy. CARDIOVASCULAR: Regular rate and rhythm without murmurs, gallops, or rubs. RESPIRATORY: Breath sounds equal bilaterally. No accessory muscle use. GASTROINTESTINAL: Abdomen soft, non-tender, nondistended. MUSCULOSKELETAL: No cyanosis, trace edema. Laboratory Laboratory Tests Test 07/17/17 04:48 White Blood Count 6.1 TH/MM3 Red Blood Count 4.34 MIL/MM3 Hemoglobin 14.0 GM/DL Hematocrit 40.7 % Mean Corpuscular Volume 93.7 FL Mean Corpuscular Hemoglobin 32.2 PG Mean Corpuscular Hemoglobin Concent 34.3 % Red Cell Distribution Width 14.1 % Platelet Count 158 TH/MM3 Mean Platelet Volume 7.8 FL Neutrophils (%) (Auto) 72.8 % Lymphocytes (%) (Auto) 14.0 % Monocytes (%) (Auto) 7.4 % Eosinophils (%) (Auto) 5.2 % Basophils (%) (Auto) 0.6 % Neutrophils # (Auto) 4.4 TH/MM3 Lymphocytes # (Auto) 0.9 TH/MM3 Monocytes # (Auto) 0.4 TH/MM3 Eosinophils # (Auto) 0.3 TH/MM3 Basophils # (Auto) 0.0 TH/MM3 CBC Comment DIFF FINAL Differential Comment Prothrombin Time 12.2 SEC Prothromb Time International Ratio 1.1 RATIO Blood Urea Nitrogen 16 MG/DL Creatinine 0.85 MG/DL Random Glucose 97 MG/DL Total Protein 6.7 GM/DL Albumin 3.5 GM/DL Calcium Level 9.2 MG/DL Alkaline Phosphatase 75 U/L Aspartate Amino Transf (AST/SGOT) 27 U/L Alanine Aminotransferase (ALT/SGPT) 27 U/L Total Bilirubin 0.7 MG/DL Sodium Level 134 MEQ/L Potassium Level 4.5 MEQ/L Chloride Level 99 MEQ/L Carbon Dioxide Level 25.6 MEQ/L Anion Gap 9 MEQ/L Estimat Glomerular Filtration Rate 63 ML/MIN Troponin I 0.70 NG/ML Assessment and Plan Problem List: (1) CVA (cerebral vascular accident) ICD Codes: I63.9 - Cerebral infarction, unspecified Status: Acute (2) CAD (coronary artery disease) ICD Codes: I25.10 - Atherosclerotic heart disease of [place] coronary artery without angina pectoris Status: Chronic (3) Elevated troponin ICD Codes: R74.8 - Abnormal levels of other serum enzymes Status: Acute (4) HTN (hypertension) ICD Codes: I10 - Essential (primary) hypertension Status: Acute (5) Dyslipidemia ICD Codes: E78.5 - Hyperlipidemia, unspecified Status: Chronic (6) Pulmonary HTN ICD Codes: I27.20 - Pulmonary hypertension, unspecified Status: Acute Assessment and Plan Continue monitoring. No angina or CHF symptoms. No plans for cath/PCI, since risk of another stroke or GI bleeding is high, mychal. with potential triple drug anticoagulation. Stay off clopidogrel, start warfarin, continue Lovenox with at least 2 days overlap once INR therapeutic. Aim for INR 2.5-3.5. Increase activity. She will need close outpatient monitoring once she travels back home. D/w pt and family. Problem Qualifiers (1) CAD (coronary artery disease): Qualified Codes: I25.10 - Atherosclerotic heart disease of [place] coronary artery without angina pectoris (2) HTN (hypertension): Qualified Codes: I10 - Essential (primary) hypertension Rylee Smith MD Jul 17, 2017 16:44
[2017-07-17] MEDS ORDERED: WARFARIN SOD 3 MG TAB PO ONE (17:00)
[2017-07-17 18:29] LABS: INTERNATIONAL NORMALIZED RATIO 1.1 RATIO; PROTHROMBIN TIME - PATIENT 11.7 SEC (9.8-11.6)
--- NOTE | 2017-07-17 18:42 | HHI.PR ---
Subjective Remarks paced sr Objective Vital Signs Date Time Temp Pulse Resp B/P (MAP) Pulse Ox O2 Delivery O2 Flow Rate FiO2 07/17/17 16:00 98.6 60 18 125/58 (80) 97 07/17/17 12:00 60 07/17/17 12:00 97.5 60 15 121/57 (78) 93 07/17/17 10:00 62 07/17/17 08:00 97.3 60 17 135/63 (87) 94 07/17/17 08:00 60 07/17/17 07:00 94 Room Air 07/17/17 06:00 60 07/17/17 04:00 60 07/17/17 04:00 97.5 60 14 126/60 (82) 98 07/17/17 02:00 60 07/17/17 00:00 60 07/17/17 00:00 97.5 60 14 147/66 (93) 94 07/16/17 22:00 60 07/16/17 20:00 60 07/16/17 20:00 97.5 60 18 125/58 (80) 95 07/16/17 19:00 95 Room Air I/O 07/16/17 07/16/17 07/16/17 07/17/17 07/17/17 07/17/17 07:00 15:00 23:00 07:00 15:00 23:00 Intake Total 200 ml 720 ml 720 ml 720 ml Balance 200 ml 720 ml 720 ml 720 ml Intake Oral 200 ml 720 ml 720 ml 720 ml # Voids 3 5 4 2 # Bowel Movements 0 0 0 0 Result Diagram: 07/17/1744707/17/17447 Objective Remarks normal motor blind od os nl face sym nl speech Assessment and Plan Assessment and Plan imp on hep ctax2 nl ct neg fu echo nl holter ldl nl was already on plavix hx [address] LOMBARDI YEST APPEARS TO BE JEREMIAS CARDIOEMBOLIC FROM A STROKE POINT OF VIEW I WOULD PREFER COUMADIN AND ASA 81 TO COVER HEART AND A LOOP RECORDER IF SHE HAD AN [place] THIS WOULD NOT COVER THAT BETTER THAN NAI MCDOWELL STILL ON IV HEP MY PLAN? ? START COUMADIN BY MED TEAM UNLESS DR LOMBARDI FEELS [place] BETTER FOR [place] OK TO START BETA MYRTLE BACK AND RUN BP TO 140/ SHOULD WE DO NUCLEAR STRESS TEST? OOB ? PUT IN LOOP RECORDER NOW (from neuro point of view could go to rehab on hep and they can run coumadin bon[place]? if that is what is decided) 07/17/17 had r eye crao sat on lovenox full dose hx lymphoma and some nodes in axilla but not usually assoc with spread to heart nor hypercoag i dw onc on coumadin now i dw dr lombardi and he will interogate pacer a JAYY is not unreasonable with CA and cva on anticoag and neg gilbert to date esr nl check crp no hx TA sx and temples nontender today Crow Antunez MD Jul 17, 2017 18:42
[2017-07-17] MEDS: ATORVASTATIN 20 MG TAB PO SCH (21:06)
[2017-07-17] MEDS: MONTELUKAST SODIUM 10 MG TAB PO SCH (21:06)
[2017-07-18] VITALS (7 sets, daily range): BP systolic 99–141; BP diastolic 54–76; PULSE 60–62; RESP 16–18; TEMP 97.5–98.2; O2SAT 92–96
[2017-07-18] MEDS: LEVOTHYROXINE SODIUM 50 MCG TAB PO SCH (06:40)
[2017-07-18] MEDS: NITROGLYCERIN 2% OINT 1 GM PACKET TOPICAL SCH ×3 (06:41→21:00)
--- NOTE | 2017-07-18 07:59 | HHI.PR ---
Subjective Remarks paced sr Objective Vital Signs Date Time Temp Pulse Resp B/P (MAP) Pulse Ox O2 Delivery O2 Flow Rate FiO2 07/18/17 03:56 97.5 60 18 134/68 (90) 96 07/18/17 03:56 Room Air 07/18/17 00:00 98.0 60 18 136/67 (90) 95 07/17/17 20:35 60 07/17/17 20:00 97.9 62 18 124/56 (78) 94 07/17/17 20:00 Room Air 07/17/17 16:00 98.6 60 18 125/58 (80) 97 07/17/17 12:00 60 07/17/17 12:00 97.5 60 15 121/57 (78) 93 07/17/17 10:00 62 07/17/17 08:00 97.3 60 17 135/63 (87) 94 07/17/17 08:00 60 I/O 07/17/17 07/17/17 07/17/17 07/18/17 07/18/17 07/18/17 07:00 15:00 23:00 07:00 15:00 23:00 Intake Total 720 ml 720 ml 710 ml Balance 720 ml 720 ml 710 ml Intake Oral 720 ml 720 ml 710 ml # Voids 4 2 4 # Bowel Movements 0 0 1 Result Diagram: 07/17/1744707/17/17447 Objective Remarks normal motor blind od os nl face sym nl speech no change Assessment and Plan Assessment and Plan imp ctax2 nl ct neg echo nl holter atrail paced ldl nl was already on plavix hx [address] LOMBARDI YEST APPEARS TO BE JEREMIAS CARDIOEMBOLIC FROM A STROKE POINT OF VIEW I WOULD PREFER COUMADIN AND ASA 81 TO COVER HEART AND A LOOP RECORDER IF SHE HAD AN CO THIS WOULD NOT COVER THAT BETTER THAN NAI MCDOWELL STILL ON IV HEP MY PLAN? ? START COUMADIN BY MED TEAM UNLESS DR LOMBARDI FEELS [place] BETTER FOR CO OK TO START BETA MYRTLE BACK AND RUN BP TO 140/ SHOULD WE DO NUCLEAR STRESS TEST? OOB ? PUT IN LOOP RECORDER NOW (from neuro point of view could go to rehab on hep and they can run coumadin bon[place]? if that is what is decided) 07/17/17 had r eye crao sat on lovenox full dose hx lymphoma and some nodes in axilla but not usually assoc with spread to heart nor hypercoag i dw onc on coumadin now i delvin lombardi and he will interogate pacer a RANDI is not unreasonable with CA and cva on anticoag and neg gilbert to date esr nl check crp no hx TA sx and temples nontender today 07/18/17 nothing new overnoc could probably inc coumadin dose? inr pend crp neg for pacer interrogation randi if not cardiac risk of mi during it i delvin lombardi yest Crow Antunez MD Jul 18, 2017 07:59
[2017-07-18 08:06] LABS: HEMATOCRIT 40.1 % (35.0-46.0); MEAN CELL VOLUME 93.9 FL (80.0-100.0); MEAN CORPUSCULAR HEMOGLOBIN 31.9 PG (27.0-34.0); PLATELET COUNT 151 TH/MM3 (150-450); RED BLOOD COUNT 4.27 MIL/MM3 (4.00-5.30); RED CELL DISTRIBUTION WIDTH 14.3 % (11.6-17.2); REVIEW FLAG FINAL; WHITE BLOOD COUNT 4.6 TH/MM3 (4.0-11.0)
[2017-07-18 08:11] LABS: INTERNATIONAL NORMALIZED RATIO 1.1 RATIO; PROTHROMBIN TIME - PATIENT 11.7 SEC (9.8-11.6)
[2017-07-18] MEDS: ASPIRIN 81 MG CHEW TAB CHEW SCH (09:22)
[2017-07-18] MEDS: CHOLECALCIFEROL (VIT D3) 1000 UNIT TAB PO SCH (09:22)
[2017-07-18] MEDS: METOPROLOL TARTRATE 50 MG TAB PO SCH ×2 (09:23→20:59)
[2017-07-18] MEDS: ENOXAPARIN SODIUM 60 MG/0.6 ML SYRINGE SQ SCH ×2 (09:23→21:00)
[2017-07-18] MEDS: PANTOPRAZOLE SOD 40 MG DELAYED RELEASE TAB PO SCH (09:23)
--- NOTE | 2017-07-18 11:57 | HHI.FF ---
Face to Face Verification Diagnosis: (1) CVA (cerebral vascular accident) (2) Central loss of vision (3) NSTEMI (non-ST elevated myocardial infarction) (4) CAD (coronary artery disease) (5) HTN (hypertension) (6) Pulmonary HTN (7) Elevated troponin Physical Therapy Order: Evaluate and Treat Home Health Nursing Order: Medical education Medication education-adverse effect Instructions: Also add daily PT/INR. I have seen patient Sanna Andersen on 07/18/17. My clinical findings support the need for the requested home health care services because: Injectable med education/admin I certify that my clinical findings support that this patient is homebound because: Impaired cognitive ability/safety Ana Alves Jul 18, 2017 11:57
--- NOTE | 2017-07-18 14:52 | PD.CARD.PN ---
Subjective Subjective Remarks No angina, brief episode of atypical CP this AM, relieved with change of position, R eye central vision loss c/w a second CVA, ambulating in the halls Objective Medications Current Medications Medications (Trade) Dose Ordered Sig/Suzi Route Start Time Stop Time Status Last Admin (Vitamin D3) 1,000 units DAILY PO 07/13/17 09:00 07/18/17 09:22 (Synthroid) 50 mcg DAILY@0600 PO 07/13/17 06:00 07/18/17 06:40 (Singulair) 10 mg HS PO 07/12/17 21:00 07/17/17 21:06 (Protonix) 40 mg DAILY PO 07/12/17 19:15 07/18/17 09:23 (Aspirin Chew) 81 mg DAILY CHEW 07/13/17 18:30 07/18/17 09:22 (Tylenol) 650 mg Q4H PRN PO 07/14/17 20:45 07/17/17 22:36 (Zofran Inj) 4 mg Q6HR PRN IV PUSH 07/15/17 11:30 07/16/17 02:42 (Mag-Al Plus Susp Liq) 30 ml Q6H PRN PO 07/15/17 11:30 (Antivert) 25 mg Q8H PRN PO 07/15/17 13:30 07/16/17 00:47 (Duoneb Neb) 1 ampule Q2HR NEB PRN NEB 07/15/17 13:30 07/17/17 21:48 (Lopressor) 50 mg Q12HR PO 07/15/17 21:00 07/18/17 09:23 (Lovenox Inj) 60 mg Q12HR SQ 07/16/17 09:00 07/18/17 09:23 (Nitroglycerin 2% Oint) 0.5 inch Q8HR TOPICAL 07/16/17 14:00 07/18/17 06:41 (Lipitor) 80 mg HS PO 07/17/17 21:00 07/17/17 21:06 (Coumadin) 3 mg DAILY@16 PO 07/18/17 16:00 Vital Signs / I&O Vital Signs Date Time Temp Pulse Resp B/P (MAP) Pulse Ox O2 Delivery O2 Flow Rate FiO2 07/18/17 12:00 98.2 60 18 99/54 (69) 92 07/18/17 10:00 96 Room Air 07/18/17 08:00 97.6 60 18 141/76 (97) 94 07/18/17 03:56 97.5 60 18 134/68 (90) 96 07/18/17 03:56 Room Air 07/18/17 00:00 98.0 60 18 136/67 (90) 95 07/17/17 20:35 60 07/17/17 20:00 97.9 62 18 124/56 (78) 94 07/17/17 20:00 Room Air 07/17/17 16:00 98.6 60 18 125/58 (80) 97 I/O 07/17/17 07/17/17 07/17/17 07/18/17 07/18/17 07/18/17 07:00 15:00 23:00 07:00 15:00 23:00 Intake Total 720 ml 720 ml 710 ml Balance 720 ml 720 ml 710 ml Intake Oral 720 ml 720 ml 710 ml # Voids 4 2 4 # Bowel Movements 0 0 1 Physical Exam GENERAL: In NAD SKIN: Warm and dry. HEAD: Normocephalic. EYES: No scleral icterus. No injection or drainage. NECK: Supple, trachea midline. No JVD or lymphadenopathy. CARDIOVASCULAR: Regular rate and rhythm without murmurs, gallops, or rubs. RESPIRATORY: Breath sounds equal bilaterally. No accessory muscle use. GASTROINTESTINAL: Abdomen soft, non-tender, nondistended. MUSCULOSKELETAL: No cyanosis, trace edema. Laboratory Laboratory Tests Test 07/17/17 17:10 07/18/17 06:30 Prothrombin Time 11.7 SEC 11.7 SEC Prothromb Time International Ratio 1.1 RATIO 1.1 RATIO White Blood Count 4.6 TH/MM3 Red Blood Count 4.27 MIL/MM3 Hemoglobin 13.6 GM/DL Hematocrit 40.1 % Mean Corpuscular Volume 93.9 FL Mean Corpuscular Hemoglobin 31.9 PG Mean Corpuscular Hemoglobin Concent 34.0 % Red Cell Distribution Width 14.3 % Platelet Count 151 TH/MM3 Mean Platelet Volume 8.0 FL Assessment and Plan Problem List: (1) CVA (cerebral vascular accident) ICD Codes: I63.9 - Cerebral infarction, unspecified Status: Acute (2) CAD (coronary artery disease) ICD Codes: I25.10 - Atherosclerotic heart disease of [place] coronary artery without angina pectoris Status: Chronic (3) Elevated troponin ICD Codes: R74.8 - Abnormal levels of other serum enzymes Status: Acute (4) HTN (hypertension) ICD Codes: I10 - Essential (primary) hypertension Status: Acute (5) Dyslipidemia ICD Codes: E78.5 - Hyperlipidemia, unspecified Status: Chronic (6) Pulmonary HTN ICD Codes: I27.20 - Pulmonary hypertension, unspecified Status: Acute Assessment and Plan No angina or CHF symptoms. No plans for cath/PCI, since risk of another stroke or GI bleeding is high, mychal. with potential triple drug anticoagulation. Stay off clopidogrel, continue warfarin, continue Lovenox with at least 2 days overlap once INR therapeutic. Aim for INR 2.5-3.5. Increase activity. She will need close outpatient monitoring once she travels back home. D/w pt and family. OK to discharge with Home Health supervision and INRs daily. She is planning to travel home on Mon. F/u with her public health clinical nurse specialist on Mon. Problem Qualifiers (1) CAD (coronary artery disease): Qualified Codes: I25.10 - Atherosclerotic heart disease of [place] coronary artery without angina pectoris (2) HTN (hypertension): Qualified Codes: I10 - Essential (primary) hypertension Rylee Smith MD Jul 18, 2017 14:52
[2017-07-18] MEDS: WARFARIN SOD 3 MG TAB PO SCH (16:00)
[2017-07-18] MEDS ORDERED: METO-309 PO (16:57)
[2017-07-18] MEDS ORDERED: WARF-58 PO (16:57)
[2017-07-18] MEDS ORDERED: ATOR20TA15 PO (16:57)
--- NOTE | 2017-07-18 17:14 | HHI.PR ---
Subjective Remarks patient denies any new neurological symptoms denies cp/sob ambulating well Objective Vitals Vital Signs Date Time Temp Pulse Resp B/P (MAP) Pulse Ox O2 Delivery O2 Flow Rate FiO2 07/18/17 16:00 97.9 62 18 133/63 (86) 96 07/18/17 12:00 98.2 60 18 99/54 (69) 92 07/18/17 10:00 96 Room Air 07/18/17 08:00 97.6 60 18 141/76 (97) 94 07/18/17 03:56 97.5 60 18 134/68 (90) 96 07/18/17 03:56 Room Air 07/18/17 00:00 98.0 60 18 136/67 (90) 95 07/17/17 20:35 60 07/17/17 20:00 97.9 62 18 124/56 (78) 94 07/17/17 20:00 Room Air I/O 07/17/17 07/17/17 07/17/17 07/18/17 07/18/17 07/18/17 07:00 15:00 23:00 07:00 15:00 23:00 Intake Total 720 ml 720 ml 710 ml 960 ml Output Total 300 ml Balance 720 ml 720 ml 710 ml 660 ml Intake Oral 720 ml 720 ml 710 ml 960 ml Output Urine Total 300 ml # Voids 4 2 4 # Bowel Movements 0 0 1 0 Result Diagram: 07/18/17 0630 07/17/17 0448 Imaging Last Impressions Head CTA 07/15/17 0000 Signed Impressions: Service Date/Time: Saturday, July 15, 2017 10:40 - CONCLUSION: Stable CT of the brain compared to the recent prior study. Adrian Mak MD Head CT 07/15/17 0000 Signed Impressions: Service Date/Time: Saturday, July 15, 2017 10:34 - CONCLUSION: Stable CT scan of the brain compared to 07/12/2017. Adrian Mak MD CT Angiography 07/13/17 0000 Signed Impressions: Service Date/Time: July 12:39 - CONCLUSION: 1. No pulmonary embolus is identified. 2. There are multiple enlarged, abnormal nodes seen within the right axilla suspicious for malignancy. These are abnormal in both size and number. 3. Small amount of fluid loculated in the fissure on the right. 4. COPD changes. Francis Billingsley MD Chest X-Ray 07/12/17 1332 Signed Impressions: Service Date/Time: Wednesday, July 12, 2017 13:47 - CONCLUSION: Compensated cardiomegaly otherwise negative . The portion of the bony skeleton visualized is unremarkable. Board Certified Radiologist. This report was verified electronically. Neck CTA 07/12/17 0000 Signed Impressions: Service Date/Time: Wednesday, July 12, 2017 19:09 - CONCLUSION: 1. Calcified plaques are seen at both bifurcations. 2. No focal or significant stenosis involving the internal carotid arteries. Adrian Mak MD Lower Extremity Ultrasound 07/12/17 0000 Signed Impressions: Service Date/Time: Wednesday, July 12, 2017 23:03 - CONCLUSION: Left knee Crane's cyst. No evidence of DVT in either leg Byron Enriquez MD Objective Remarks AAOx3 - awake and alert - follows commands NAD S1S2 RRR Facial droop and left hemiparesis much improved. There is central loss of vision int he right eye by confrontation exam. muscle strength is 5/5 in all extremities. Sensation intact in all extremities. Normal speech and memory. Abdomen is soft, nontender nondistended. Procedures none Medications and IVs Current Medications Medications (Trade) Dose Ordered Sig/Suzi Route Start Time Stop Time Status Last Admin (Vitamin D3) 1,000 units DAILY PO 07/13/17 09:00 07/18/17 09:22 (Synthroid) 50 mcg DAILY@0600 PO 07/13/17 06:00 07/18/17 06:40 (Singulair) 10 mg HS PO 07/12/17 21:00 07/17/17 21:06 (Protonix) 40 mg DAILY PO 07/12/17 19:15 07/18/17 09:23 (Aspirin Chew) 81 mg DAILY CHEW 07/13/17 18:30 07/18/17 09:22 (Tylenol) 650 mg Q4H PRN PO 07/14/17 20:45 07/17/17 22:36 (Zofran Inj) 4 mg Q6HR PRN IV PUSH 07/15/17 11:30 07/16/17 02:42 (Mag-Al Plus Susp Liq) 30 ml Q6H PRN PO 07/15/17 11:30 (Antivert) 25 mg Q8H PRN PO 07/15/17 13:30 07/16/17 00:47 (Duoneb Neb) 1 ampule Q2HR NEB PRN NEB 07/15/17 13:30 07/17/17 21:48 (Lopressor) 50 mg Q12HR PO 07/15/17 21:00 07/18/17 09:23 (Lovenox Inj) 60 mg Q12HR SQ 07/16/17 09:00 07/18/17 09:23 (Nitroglycerin 2% Oint) 0.5 inch Q8HR TOPICAL 07/16/17 14:00 07/18/17 14:00 (Lipitor) 80 mg HS PO 07/17/17 21:00 07/17/17 21:06 (Coumadin) 3 mg DAILY@16 PO 07/18/17 16:00 07/18/17 16:00 Pharmacy Profile Note 0 ml @ 0 mls/hr UNSCH OTHER 07/18/17 15:15 UNV Urinary Catheter: No Vascular Central Line Catheter: No A/P Problem List: (1) CVA (cerebral vascular accident) ICD Code: I63.9 - Cerebral infarction, unspecified Status: Acute (2) Elevated troponin ICD Code: R74.8 - Abnormal levels of other serum enzymes Status: Acute (3) CAD (coronary artery disease) ICD Code: I25.10 - Atherosclerotic heart disease of [place] coronary artery without angina pectoris Status: Chronic (4) Pulmonary HTN ICD Code: I27.20 - Pulmonary hypertension, unspecified Status: Acute (5) HTN (hypertension) ICD Code: I10 - Essential (primary) hypertension Status: Acute (6) Dyslipidemia ICD Code: E78.5 - Hyperlipidemia, unspecified Status: Chronic (7) Hypokalemia ICD Code: E87.6 - Hypokalemia (8) Central loss of vision ICD Code: H53.419 - [place] involving central area, unspecified eye Assessment and Plan (1) CVA (cerebral vascular accident) Plan: Is a 89-year-old female who presents to [facility] complaining of jaundice weakness in bilateral extremities. The onset of the problem was acute and the patient was worked up in emergency department and determined to have elevated troponins, for which the patient was started on IV heparin and then transferred to the main hospital in [place]. Upon arrival at the hospital in [place] the patient was noted to have a facial droop on the left side and left lower extremity weakness, so she decided to call stroke alert. The patient was admitted to the intensive care unit Neurology consulted CTA showed calcified plaques at both bifurcations but no focal significant stenosis involving the internal carotid arteries. CTA of the brain unremarkable. Head CT done upon presentation of the patient to the hospital showed no acute disease. Neurologic consulted. Recommendations appreciated. Patient not a TPA candidate given that the patient presented symptoms since 11:00 on the day of admission which is 8 hours after presentation. Etiology consulted as per neurology recommendations. Dr Smith evaluate the patient. Echocardiogram showed preserved left systolic function and no segmental wall motion abnormalities. Troponin is not trending. There is no evidence of acute myocardial infarction this time. Cardiology recommended a VQ scan, however CTA pulmonary angiogram was done which ruled out PE. 07/15 Patient started on Lovenox 1 mg /kg BID on 07/14 - first dose given last night. Heparin IV was discontinued. The patient presents side and right central loss of vision. 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 I will order stat head CT and CTA of the brain. The patient is on anticoagulation, therefore is not a candidate for TPA or any other procedure. Patient's blood pressures is in the 260's systolic for which eminence hydralazine IV once and when necessary-ordered. Continue to monitor vital signs. There are no events reported on telemetry, the patient has been on normal sinus rhythm. I will discontinue Lovenox and resume Plavix. If CT of the brain negative for acute bleed then will resume heparin IV tonight. I called neurologist on-call. Dr. Bearden responded to the call and explained the plan. States that he agrees with the plan. 07/16 Heparin Iv and Coumadin discontinued by cardiology. Patient started on Lovenox SQ BID as per cardiology order. Patient currently on Lovenox SQ, ASA and Coumadin. Discussed with Dr Bearden, continue current management. Ophtalmology consult placed by Dr Bearden on 07/16, still pending. 07/17 no new neurological deficits. Continue Lovenox 60 mg subcutaneously twice a day. Continue aspirin, Plavix. Continue to follow [place] recommendations. Continue PT. 07/18 No JAYY or cardiac catheterization as per cardiology to high of a risk given that patient would need triple anticoagulation and has had GI bleed in the past. Discussed case with Dr Smith who will fu INR as outpatient. [facility] will check INR and call 's Sarah's office. Plavix discontinued by cardiology. Patient currently on Lovenox subcutaneously to Coumadin. The patient will be need to be on Lovenox overlap for 2 days after the patient's INR on therapeutic range which would be 2.5-3.5. Patient is cleared to be discharged by cardiology. (2) Elevated troponin ICD Code: R74.8 - Abnormal levels of other serum enzymes Status: Acute Plan: The patient was started on heparin for elevated cardiac enzymes. Cardiology consulted. The patient is chest pain-free. As per cardiology evaluation, medically clear evidence of myocardial infarction at this point. 07/14 Cardiac troponins peaked at 0.7, down to 0.2 today. Patient continues to be chest pain-free. Management as stated above. 07/15 patient with chest discomfort today. EKG obtained and reviewed by me shows normal sinus rhythm without ST-T changes, when compared to prior unchanged. I will order cardiac enzymes and trend, as well as Trental EKG. 07/16 Patient's troponin rised to a peak level of 1.63, now down trending and last level at 1.58. Patient currently on aspirin, Plavix, Nitropaste, Lovenox subcutaneously. Cardiology following. Follow-up recommendations. 07/17 troponin trended down to 0.7 today. Follow-up cardiology recommendations. (3) CAD (coronary artery disease) ICD Code: I25.10 - Atherosclerotic heart disease of [place] coronary artery without angina pectoris Status: Chronic Plan: As above. (4) Pulmonary HTN ICD Code: I27.20 - Pulmonary hypertension, unspecified Status: Acute Plan: As seen on 2-D echocardiogram. Follow-up cardiology recommendations. (5) HTN (hypertension) ICD Code: I10 - Essential (primary) hypertension Status: Acute Plan: Permissive hypertension allowed. Antihypertensive medications discontinued. 07/14 I will start the patient on metoprolol 25 mg po twice a day which she was taking at home. Continue to monitor vital signs. 07/15 the patient has a systolic blood pressure in the 260s. Likely secondary to acute CVA. 10 mg IV hydralazine have been ordered. If BP still elevated we' ll place on a Cardizem drip to keep systolic blood pressure less than 200 but no less than 180 systolic to keep permissive hypertension. 10/15 blood pressure better controlled on metoprolol tartrate 50 milligrams by mouth every 12 hours. (6) Dyslipidemia ICD Code: E78.5 - Hyperlipidemia, unspecified Status: Chronic Plan: Continue statin. Lipid profile shows triglycerides 112, total cholesterol 84, LDL cholesterol 24, HDL cholesterol of 37.9. (7) Hypokalemia ICD Code: E87.6 - Hypokalemia Plan: Mild hypokalemia. Replace orally and monitor BMP. (8) Central loss of vision ICD Code: H53.419 - [place] involving central area, unspecified eye Plan: Ration presents with acute central loss of vision of the right eye. Suspect due to ischemic CVA which could be embolic versus atherosclerotic. Patient has not had any episodes of atrial fibrillation on telemetry. Check stat CT and CTA of the brain. Case discussed with neurology on-call - Dr Bearden. CT head negative for acute bleed then will place back on IV heparin which the Coumadin with a goal INR 2-3. GI prophylaxis: PPI. DVT prophylaxis: The patient on heparin IV. Discharge Planning Will DC in am once [facility] arranged. Problem Qualifiers (1) CVA (cerebral vascular accident): Qualified Codes: I63.40 - Cerebral infarction due to embolism of unspecified cerebral artery (2) CAD (coronary artery disease): Qualified Codes: I25.10 - Atherosclerotic heart disease of [place] coronary artery without angina pectoris (3) HTN (hypertension): Qualified Codes: I10 - Essential (primary) hypertension (4) Central loss of vision: Qualified Codes: H53.411 - [place] involving central area, right eye Rad Monteiro MD Jul 18, 2017 17:14
[2017-07-18 19:46] LABS: INTERNATIONAL NORMALIZED RATIO 1.2 RATIO; PROTHROMBIN TIME - PATIENT 12.9 SEC (9.8-11.6)
[2017-07-18] MEDS: MONTELUKAST SODIUM 10 MG TAB PO SCH (20:59)
[2017-07-18] MEDS: ATORVASTATIN 20 MG TAB PO SCH (20:59)
[2017-07-18] MEDS: ACETAMINOPHEN 325 MG TAB PO PRN (22:53)
[2017-07-19 00:25] VITALS: BP 156/70; PULSE 61; RESP 18; TEMP 98.5; O2SAT 95
[2017-07-19] MEDS: LEVOTHYROXINE SODIUM 50 MCG TAB PO SCH (06:00)
[2017-07-19] MEDS: NITROGLYCERIN 2% OINT 1 GM PACKET TOPICAL SCH ×2 (06:00→14:28)
[2017-07-19 06:39] VITALS: BP 136/61; PULSE 60; RESP 18; TEMP 98.5; O2SAT 95
[2017-07-19 06:45] LABS: INTERNATIONAL NORMALIZED RATIO 1.4 RATIO; PROTHROMBIN TIME - PATIENT 15.4 SEC (9.8-11.6)
--- NOTE | 2017-07-19 07:39 | HHI.PR ---
Subjective Remarks paced sr no new problems Objective Vital Signs Date Time Temp Pulse Resp B/P (MAP) Pulse Ox O2 Delivery O2 Flow Rate FiO2 07/19/17 06:39 98.5 60 18 136/61 (86) 95 07/19/17 00:25 Room Air 07/19/17 00:25 98.5 61 18 156/70 (98) 95 07/18/17 20:03 62 07/18/17 19:30 Room Air 07/18/17 19:30 98.2 62 16 136/62 (86) 96 07/18/17 16:00 97.9 62 18 133/63 (86) 96 07/18/17 12:00 98.2 60 18 99/54 (69) 92 07/18/17 10:00 96 Room Air 07/18/17 08:00 97.6 60 18 141/76 (97) 94 I/O 07/18/17 07/18/17 07/18/17 07/19/17 07/19/17 07/19/17 07:00 15:00 23:00 07:00 15:00 23:00 Intake Total 710 ml 960 ml 720 ml Output Total 300 ml Balance 710 ml 660 ml 720 ml Intake Oral 710 ml 960 ml 720 ml Output Urine Total 300 ml # Voids 4 3 # Bowel Movements 1 0 0 Result Diagram: 07/18/1730 07/17/17 0448 Objective Remarks normal motor can see some stripes od os nl face sym nl speech Assessment and Plan Assessment and Plan imp ctax2 nl ct neg echo nl holter atrail paced ldl nl was already on plavix hx [address] LOMBARDI YEST APPEARS TO BE JEREMIAS CARDIOEMBOLIC FROM A STROKE POINT OF VIEW I WOULD PREFER COUMADIN AND ASA 81 TO COVER HEART AND A LOOP RECORDER IF SHE HAD AN NC THIS WOULD NOT COVER THAT BETTER THAN NAI M[place]ELL STILL ON IV HEP MY PLAN? ? START COUMADIN BY MED TEAM UNLESS DR LOMBARDI FEELS [place] BETTER FOR NC OK TO START BETA MYRTLE BACK AND RUN BP TO 140/ SHOULD WE DO NUCLEAR STRESS TEST? OOB ? PUT IN LOOP RECORDER NOW (from neuro point of view could go to rehab on hep and they can run coumadin bonilla? if that is what is decided) 07/17/17 had r eye crao sat on lovenox full dose hx lymphoma and some nodes in axilla but not usually assoc with spread to heart nor hypercoag i dw onc on coumadin now i delvin lombardi and he will interogate pacer a RANDI is not unreasonable with CA and cva on anticoag and neg gilbert to date esr nl check crp no hx TA sx and temples nontender today 07/18/17 nothing new overnoc could probably inc coumadin dose? inr pend crp neg for pacer interrogation randi if not cardiac risk of mi during it i delvin lombardi yest 07/19/17 pacer interogation neg inr 1.4 ok dc by me cards to follow inr Crow Antunez MD Jul 19, 2017 07:39
[2017-07-19 08:05] VITALS: BP 150/70; PULSE 60; RESP 18; TEMP 97.5; O2SAT 98
[2017-07-19] MEDS: CHOLECALCIFEROL (VIT D3) 1000 UNIT TAB PO SCH (09:00)
[2017-07-19] MEDS: ASPIRIN 81 MG CHEW TAB CHEW SCH (09:11)
[2017-07-19] MEDS: METOPROLOL TARTRATE 50 MG TAB PO SCH (09:11)
[2017-07-19] MEDS: PANTOPRAZOLE SOD 40 MG DELAYED RELEASE TAB PO SCH (09:11)
[2017-07-19] MEDS: ENOXAPARIN SODIUM 60 MG/0.6 ML SYRINGE SQ SCH (09:12)
[2017-07-19 10:00] VITALS: PULSE 60
[2017-07-19] MEDS ORDERED: ENOX60P SQ (10:53)
[2017-07-19 12:05] VITALS: BP 150/70; PULSE 60; RESP 18; TEMP 97.5; O2SAT 98
[2017-07-19] MEDS ORDERED: WARF4TAB52 PO (13:05)
[2017-07-19] MEDS ORDERED: NITR0.4S SL (13:47)
[2017-07-19] MEDS ORDERED: NITR2OIN TOPICAL ×2 (13:47→14:00)
[2017-07-19] MEDS ORDERED: COMMODE BEDSIDE1 MI1 (14:24)
[2017-07-19] MEDS: WARFARIN SOD 3 MG TAB PO SCH (14:25)
--- NOTE | 2017-07-19 16:19 | HHI.DS ---
Discharge Summary Admission Date Jul 12, 2017 at 16:06 Discharge Date: Jul 19, 2017 Admitting Diagnosis NSTEMI (1) CVA (cerebral vascular accident) ICD Code: I63.9 - Cerebral infarction, unspecified Status: Acute (2) Elevated troponin ICD Code: R74.8 - Abnormal levels of other serum enzymes Status: Acute (3) CAD (coronary artery disease) ICD Code: I25.10 - Atherosclerotic heart disease of [place] coronary artery without angina pectoris Status: Chronic (4) Pulmonary HTN ICD Code: I27.20 - Pulmonary hypertension, unspecified Status: Acute (5) HTN (hypertension) ICD Code: I10 - Essential (primary) hypertension Status: Acute (6) Dyslipidemia ICD Code: E78.5 - Hyperlipidemia, unspecified Status: Chronic (7) Hypokalemia ICD Code: E87.6 - Hypokalemia (8) Central loss of vision ICD Code: H53.419 - [place] involving central area, unspecified eye Procedures none Brief History - From Admission woke up 3:00a.m all ok 10:30a.m weak in legs and had difficulty getting out of bed usually juist swing over without problem then within one hour had trouble more and more and got to hospital within one to 2 hrs no pain, no numbness no tingling but never improved fingersips on right hand always numb for fdc no other weakness always short of breath- has pulmonary htn no other symptoms plane ride monday night- 4 hrs plane ride- never got up not on anticoagulation at home , only 81mg and plavix did have gi bleed while on anticoagulation and was thus off it - several years ago upon arrival to [address], nurse noted facial droop to left side and left LE weakness and called stroke alert daughter also noted some slurred speech and facial droop while in [place] still feelign worse with overall weakness but speech is normal CBC/BMP: 07/18/17 0630 07/17/17 0448 Significant Findings Laboratory Tests Test 07/17/17 04:48 07/17/17 17:10 07/18/17 06:30 07/18/17 17:49 Neutrophils (%) (Auto) 72.8 % (16.0-70.0) Eosinophils (%) (Auto) 5.2 % (0.0-4.0) Lymphocytes # (Auto) 0.9 TH/MM3 (1.0-4.8) Prothrombin Time 12.2 SEC (9.8-11.6) 11.7 SEC (9.8-11.6) 11.7 SEC (9.8-11.6) 12.9 SEC (9.8-11.6) Sodium Level 134 MEQ/L (136-145) Estimat Glomerular Filtration Rate 63 ML/MIN (>89) Troponin I 0.70 NG/ML (0.02-0.05) C-Reactive Protein 0.57 MG/DL (0.00-0.30) Test 07/19/17 05:59 Prothrombin Time 15.4 SEC (9.8-11.6) PE at Discharge AAOx3 - awake and alert - follows commands NAD S1S2 RRR Facial droop and left hemiparesis much improved. There is central loss of vision int he right eye by confrontation exam. muscle strength is 5/5 in all extremities. Sensation intact in all extremities. Normal speech and memory. Abdomen is soft, nontender nondistended. Hospital Course Patient admitted for CVA with full workup and CVA protocol, noted and admitted for TPA, neurologist and advertising assistant manager consulted patient placed on Lovenox and Coumadin bridging until therapeutic INR. Patient had elevated troponin hypertension, pulmonary hypertension cardiology consulted they recommend been to stop clopidogrel and continue warfarin and Lovenox bridging and cleared for discharge, INR goal is 2.5-3.5 [id number] encounter performed with the patient on discharge day, as well as physical exam, summary of hospitalization course and postdischarge plan has been D/W the patient. D/W nurse D/W skilled nursing case manager. D/W Dr. Smith who agreed on current regimen including Nitropatch changed every 8 hours Discharge medications reviewed and printed and signed, post discharge follow up visit with PCP and other specialist as well as Brief hospital course and discharge summary has been placed. Pt Condition on Discharge: Fair Discharge Disposition: Disch w/ Home Health Serv Discharge Time: > 30 minutes Discharge Instructions DIET: Follow Instructions for: Heart Healthy Diet Speech Therapy-Diet Recommends: Soft Activities you can perform: See Additionl Instruction Other Activity Instructions: per PT Follow up Referrals: Cardiology - 1 Week Neurology - 2 Weeks PCP Follow-up - 1 Week New Medications: Commode Bedside (Commode Bedside) 1 Mis Mis EA .ROUTE DIRECTED, #1 0 Refills Nitroglycerin SL (Nitrostat SL) 0.4 Mg Subl 0.4 MG SL DIRECTED PRN for CHEST PAIN, #20 TAB.SL 0 Refills 1 tablet under the tongue as needed for chest pain. Repeat every 5 minutes for a total of 3 DOSES or call 911 if NO relief. Warfarin (Warfarin) 1 Mg Tab 3 MG PO DAILY for Blood Clot Prevention for 30 Days, #90 TAB 0 Refills Atorvastatin (Atorvastatin) 20 Mg Tab 80 MG PO HS for Blood Clot Prevention, #31 TAB Enoxaparin Inj (Lovenox Inj) 60 Mg/0.6 Ml Syr 60 MG SQ Q12HR for INR bridge for 8 Days, #16 INJECTION Metoprolol Tartrate (Lopressor) 50 Mg Tab 50 MG PO Q12HR for cad, #62 TAB Nitroglycerin Topical (Nitro-Bid Topical) 2 % Oint 0.5 INCH TOPICAL Q8HR for HTN, #24 TUBE keep it off if bp<100 systolic Continued Medications: Aspirin (Aspirin) 81 Mg Chew 81 MG CHEW DAILY, TAB 0 Refills Cholecalciferol (Vitamin D-1000) 1,000 Unit Tab 1000 UNITS PO DAILY for Nutritional Supplement, #1 BOTTLE 0 Refills Lactobacillus Rhamnosus (GG) (Align) 10.5 Mg Chew 10.5 MG CHEW for Nutritional Supplement, TAB 0 Refills Levothyroxine (Levothyroxine) 50 Mcg Tab 50 MCG PO DAILY for Thyroid, #30 TAB 0 Refills Mometasone-Formoterol 120 Act Inh (Dulera 120 Act Inh) 100-5 Mcg/Act Inh 2 PUFF INH BID for Asthma Management, #1 INHALER 0 Refills Montelukast (Montelukast) 10 Mg Tab 10 MG PO HS, #30 TAB 0 Refills Pantoprazole (Pantoprazole) 40 Mg Tab 40 MG PO DAILY for Reflux, #30 TAB 0 Refills Discontinued Medications: Atorvastatin (Atorvastatin) 20 Mg Tab 20 MG PO HS for Cholesterol Management, #30 TAB 0 Refills Clopidogrel (Clopidogrel) 75 Mg Tab 75 MG PO DAILY for Blood Clot Prevention, #30 TAB 0 Refills Arina Camacho MD Jul 19, 2017 16:19
--- NOTE | 2017-07-19 16:40 | PD.CARD.PN ---
Subjective Subjective Remarks No angina or CHF symptoms, R eye central vision loss c/w a second CVA. Ambulating in the halls. Objective Vital Signs / I&O Vital Signs Date Time Temp Pulse Resp B/P (MAP) Pulse Ox O2 Delivery O2 Flow Rate FiO2 07/19/17 10:00 60 07/19/17 09:00 96 Room Air 07/19/17 08:05 97.5 60 18 150/70 (96) 98 07/19/17 06:39 98.5 60 18 136/61 (86) 95 07/19/17 00:25 Room Air 07/19/17 00:25 98.5 61 18 156/70 (98) 95 07/18/17 20:03 62 07/18/17 19:30 Room Air 07/18/17 19:30 98.2 62 16 136/62 (86) 96 I/O 07/18/17 07/18/17 07/18/17 07/19/17 07/19/17 07/19/17 07:00 15:00 23:00 07:00 15:00 23:00 Intake Total 710 ml 960 ml 720 ml Output Total 300 ml Balance 710 ml 660 ml 720 ml Intake Oral 710 ml 960 ml 720 ml Output Urine Total 300 ml # Voids 4 3 # Bowel Movements 1 0 0 Physical Exam GENERAL: In NAD SKIN: Warm and dry. HEAD: Normocephalic. EYES: No scleral icterus. No injection or drainage. NECK: Supple, trachea midline. No JVD or lymphadenopathy. CARDIOVASCULAR: Regular rate and rhythm without murmurs, gallops, or rubs. RESPIRATORY: Breath sounds equal bilaterally. No accessory muscle use. GASTROINTESTINAL: Abdomen soft, non-tender, nondistended. MUSCULOSKELETAL: No cyanosis, trace edema. Laboratory Laboratory Tests Test 07/18/17 17:49 07/19/17 05:59 Prothrombin Time 12.9 SEC 15.4 SEC Prothromb Time International Ratio 1.2 RATIO 1.4 RATIO Assessment and Plan Problem List: (1) CVA (cerebral vascular accident) ICD Codes: I63.9 - Cerebral infarction, unspecified Status: Acute (2) CAD (coronary artery disease) ICD Codes: I25.10 - Atherosclerotic heart disease of [place] coronary artery without angina pectoris Status: Chronic (3) Elevated troponin ICD Codes: R74.8 - Abnormal levels of other serum enzymes Status: Acute (4) HTN (hypertension) ICD Codes: I10 - Essential (primary) hypertension Status: Acute (5) Dyslipidemia ICD Codes: E78.5 - Hyperlipidemia, unspecified Status: Chronic (6) Pulmonary HTN ICD Codes: I27.20 - Pulmonary hypertension, unspecified Status: Acute Assessment and Plan Remains stable from cardiac standpoint. No angina or CHF symptoms. No plans for cath/PCI, since risk of another stroke or GI bleeding is high, mychal. with potential triple drug anticoagulation. Stay off clopidogrel, continue warfarin, continue Lovenox with at least 2 days overlap once INR therapeutic. Aim for INR 2.5-3.5. Increase activity. She will need close outpatient monitoring once she travels back home. DC home with Home Health, daily INR monitoring. F/u with primary card on Mon. D/w pt and family. Problem Qualifiers (1) CVA (cerebral vascular accident): Qualified Codes: I63.40 - Cerebral infarction due to embolism of unspecified cerebral artery (2) CAD (coronary artery disease): Qualified Codes: I25.10 - Atherosclerotic heart disease of [place] coronary artery without angina pectoris (3) HTN (hypertension): Qualified Codes: I10 - Essential (primary) hypertension Rylee Smith MD Jul 19, 2017 16:40
== END 2017-07-19 14:37 | disposition home health service (06) | DRG 65 ==
LOC: PHED 13:14 → PHEDA 16:06 → N04B 18:20 → N03A 20:45 → N05A 07-14 17:14 → N03B 07-15 12:45 → N04A 07-17 13:42
PROVIDERS: ADMIT Hospitalist; ATTEND Hospitalist
DX: I63.40 Cerebral infarction due to embolism of unspecified cerebral artery (principal); G81.94 Hemiplegia, unspecified affecting left nondominant side; H34.11 Central retinal artery occlusion, right eye; I11.0 Hypertensive heart disease with heart failure; I50.9 Heart failure, unspecified; R59.0 Localized enlarged lymph nodes; R47.01 Aphasia; H43.812 Vitreous degeneration, left eye; I27.20 Pulmonary hypertension, unspecified; H54.62 Unqualified visual loss, left eye, normal vision right eye; K21.9 Gastro-esophageal reflux disease without esophagitis; I25.10 Atherosclerotic heart disease of native coronary artery without angina pectoris; M19.90 Unspecified osteoarthritis, unspecified site; E78.00 Pure hypercholesterolemia, unspecified; R29.810 Facial weakness; E03.9 Hypothyroidism, unspecified; J44.9 Chronic obstructive pulmonary disease, unspecified; Z87.11 Personal history of peptic ulcer disease; R91.1 Solitary pulmonary nodule; R74.8 Abnormal levels of other serum enzymes; E87.6 Hypokalemia; H53.419 Scotoma involving central area, unspecified eye; Z95.5 Presence of coronary angioplasty implant and graft; Z95.0 Presence of cardiac pacemaker; Z85.71 Personal history of Hodgkin lymphoma
CPT/HCPCS: 70450; 70496; 70498; 71010; 71275; 80048; 80053; 80061; 81001; 82272; 82435; 82550; 82565; 82947; 83735; 83880; 84100; 84132; 84295; 84439; 84443; 84484; 84520; 85025; 85027; 85610; 85652; 85730; 86038; 86140; 86592; 87641; 93005; 93225; 93226; 93306; 93970; 94640; 94664; 96360; J0360; J1644; J1650; J2405; J3475; J7030; J7040; Q9967

== ENCOUNTER 2017-07-22 03:43 | Emergency (ER) | payer MEDICARE, BC ==
[~2017-07-22] VITALS: Ht 154.9 cm; Wt 74.0 kg
[~2017-07-22 03:43] MED LIST: ASPI81CH CHEW; ATOR20TA15 PO; COMMODE BEDSIDE1 MI1; DULE100A INH; ENOX60P SQ; LEVO50TA4 PO; METO-309 PO; MONT10TA4 PO; NITR0.4S SL; NITR2OIN TOPICAL; PANT40TA3 PO; PROB1CHW5 CHEW; VITA1000 PO; WARF4TAB52 PO
[2017-07-22 03:49] VITALS: BP 163/78; PULSE 60; RESP 18; TEMP 98; O2SAT 100
[2017-07-22 03:55] VITALS: BP 163/78; PULSE 61; RESP 18; O2SAT 99
[2017-07-22] MEDS ORDERED: SODIUM CHLORIDE 0.9% FLUSH 10 ML FLUSH IVF PRN (04:00)
[2017-07-22] MEDS ORDERED: ASPIRIN 81 MG CHEW TAB PO ONE (04:00)
--- NOTE | 2017-07-22 04:12 | PD ---
HPI Chief Complaint: Pain: Acute or Chronic Time Seen by Provider: 03:47 Travel History International Travel<30 days: No Contact w/Intl Traveler<30days: No Traveled to known affect area: No History of Present Illness HPI Patient is an 87-year-old female recently admitted to the hospital for ACS/and STEMI as well as stroke with visual symptoms. She presents emergency department for evaluation of chest pain left side of her chest radiating to her left shoulder for the past hour. Patient's been taking nitroglycerin as well as Lovenox at home bridging to Coumadin. Recently admitted and discharged from the hospital, she did see a enterprise software engineer for an elevated troponin of 0.49. Apparently cardiac catheterization was offered but the patient states that she did not want one. She states the pain was pressure, radiation to shoulder, context as above, duration as above. PFSH Past Medical History Arthritis: Yes Asthma: Yes Heart Rhythm Problems: Yes (CAD - 4 stents) Cancer: Yes (Non-Hodgkins Lyphoma) Cardiovascular Problems: Yes High Cholesterol: Yes Congestive Heart Failure: Yes Coronary Artery Disease: Yes Diminished Hearing: No Gastrointestinal Disorders: Yes (Divarticulosis, GI bleed) GERD: Yes Genitourinary: No Hypertension: Yes Immune Disorder: No Implanted Vascular Access Dvce: Yes Musculoskeletal: Yes Neurologic: No Psychiatric: No Reproductive: No Respiratory: Yes (pulmonary hypertension) Myocardial Infarction: Yes Thyroid Disease: Yes (Hypothyroid) ?: Not Past Surgical History Abdominal Surgery: Yes (appendectomy) AICD: No Appendectomy: Yes Arteriovenous Shunt: No Cardiac Surgery: Yes (stent placement, pacemaker) Insulin Pump: No Joint Replacement: No Oral Surgery: Yes (tonsillectomy) Pacemaker: Yes ([id number]) Thoracic Surgery: Yes (wedge resection of right lower lung) Tonsillectomy: Yes Other Surgery: Yes Social History Alcohol Use: Yes (rarely) Tobacco Use: No Substance Use: No Allergies-Medications (Allergen,Severity, Reaction): Coded Allergies: Sulfa (Sulfonamide Antibiotics) (Verified Allergy, Intermediate, Hives, ) Reported Meds & Prescriptions Reported Meds & Active Scripts Active Nitro-Bid Topical (Nitroglycerin) 2 % Oint 0.5 Inch TOPICAL Q8HR keep it off if bp<100 systolic Nitrostat SL (Nitroglycerin) 0.4 Mg Subl 0.4 Mg SL DIRECTED PRN 1 tablet under the tongue as needed for chest pain. Repeat every 5 minutes for a total of 3 DOSES or call 911 if NO relief. Warfarin 1 Mg Tab 3 Mg PO DAILY 30 Days Lovenox Inj (Enoxaparin Sodium) 60 Mg/0.6 Ml Syr 60 Mg SQ Q12HR 8 Days Lopressor (Metoprolol Tartrate) 50 Mg Tab 50 Mg PO Q12HR Atorvastatin (Atorvastatin Calcium) 20 Mg Tab 80 Mg PO HS Reported Dulera 120 Act Inh (Mometasone-Formoterol 120 Act Inh) 100-5 Mcg/Act Inh 2 Puff INH BID Vitamin D-1000 (Cholecalciferol) 1,000 Unit Tab 1,000 Units PO DAILY Align (Lactobacillus Rhamnosus (GG)) 10.5 Mg Chew 10.5 Mg CHEW Aspirin 81 Mg Chew 81 Mg CHEW DAILY Levothyroxine (Levothyroxine Sodium) 50 Mcg Tab 50 Mcg PO DAILY Montelukast (Montelukast Sodium) 10 Mg Tab 10 Mg PO HS Pantoprazole (Pantoprazole Sodium) 40 Mg Tab 40 Mg PO DAILY Review of Systems Except as stated in HPI: all other systems reviewed are Neg Physical Exam Narrative GENERAL: Well-developed well-nourished, elderly female in no distress. SKIN: Focused skin assessment warm/dry. HEAD: Atraumatic. Normocephalic. EYES: Pupils equal and round. No scleral icterus. No injection or drainage. ENT: No nasal bleeding or discharge. Mucous membranes pink and moist. NECK: Trachea midline. No JVD. CARDIOVASCULAR: Regular rate and rhythm. No murmur appreciated. 2+ bilateral equal pulses in all 4 extremities. RESPIRATORY: No accessory muscle use. Clear to auscultation. Breath sounds equal bilaterally. GASTROINTESTINAL: Abdomen soft, non-tender, nondistended. Hepatic and splenic margins not palpable. MUSCULOSKELETAL: No obvious deformities. No clubbing. No cyanosis. No edema. NEUROLOGICAL: Awake and alert. No obvious cranial nerve deficits. Motor grossly within normal limits. Normal speech. PSYCHIATRIC: Appropriate mood and affect; insight and judgment normal. Data Data Last Documented VS Vital Signs Date Time Temp Pulse Resp B/P (MAP) Pulse Ox O2 Delivery O2 Flow Rate FiO2 07/22/17 03:55 61 18 163/78 (106) 99 Nasal Cannula 2.00 07/22/17 03:49 98.0 Orders Orders Electrocardiogram (07/22/17 03:47) Basic Metabolic Panel (Bmp) (07/22/17 03:47) Complete Blood Count With Diff (07/22/17 03:47) Magnesium (Mg) (07/22/17 03:47) Prothrombin Time / Inr (Pt) (07/22/17 03:47) Act Partial Throm Time (Ptt) (07/22/17 03:47) Troponin I (07/22/17 03:47) Chest, Single Ap (07/22/17 03:47) Ecg Monitoring (07/22/17 03:47) Iv Access Insert/Monitor (07/22/17 03:47) Oximetry (07/22/17 03:47) Oxygen Administration (07/22/17 03:47) Aspirin Chew (Aspirin Chew) (07/22/17 04:00) Sodium Chloride 0.9% Flush (Ns Flush) (07/22/17 04:00) Troponin I (07/22/17 06:26) Electrocardiogram (07/22/17 ) Labs Laboratory Tests Test 07/22/17 04:00 07/22/17 06:30 White Blood Count 4.8 TH/MM3 Red Blood Count 4.25 MIL/MM3 Hemoglobin 13.4 GM/DL Hematocrit 39.9 % Mean Corpuscular Volume 93.7 FL Mean Corpuscular Hemoglobin 31.5 PG Mean Corpuscular Hemoglobin Concent 33.6 % Red Cell Distribution Width 14.6 % Platelet Count 181 TH/MM3 Mean Platelet Volume 8.0 FL Neutrophils (%) (Auto) 69.2 % Lymphocytes (%) (Auto) 15.9 % Monocytes (%) (Auto) 9.9 % Eosinophils (%) (Auto) 4.1 % Basophils (%) (Auto) 0.9 % Neutrophils # (Auto) 3.3 TH/MM3 Lymphocytes # (Auto) 0.8 TH/MM3 Monocytes # (Auto) 0.5 TH/MM3 Eosinophils # (Auto) 0.2 TH/MM3 Basophils # (Auto) 0.0 TH/MM3 CBC Comment DIFF FINAL Differential Comment Prothrombin Time 31.3 SEC Prothromb Time International Ratio 2.7 RATIO Activated Partial Thromboplast Time 39.9 SEC Blood Urea Nitrogen 13 MG/DL Creatinine 0.67 MG/DL Random Glucose 94 MG/DL Calcium Level 8.4 MG/DL Magnesium Level 1.6 MG/DL Sodium Level 137 MEQ/L Potassium Level 3.9 MEQ/L Chloride Level 105 MEQ/L Carbon Dioxide Level 23.7 MEQ/L Anion Gap 8 MEQ/L Estimat Glomerular Filtration Rate 83 ML/MIN Troponin I 0.03 NG/ML 0.05 NG/ML MDM Medical Decision Making Medical Screen Exam Complete: Yes Emergency Medical Condition: Yes Differential Diagnosis ACS, AMI, chest wall pain, pneumonia. Narrative Course Patient roomed in emergency department, still taking Lovenox shots she is highly unlikely for PE. The patient does have some signs symptoms concerning for ACS, she verbalized that she would not want a cardiac catheterization at this time. Explained to her that coronary artery disease could not be excluded by laboratory values alone. She would like to follow-up with her enterprise software engineer. Given that she is only been having symptoms for an hour recommended a repeat troponin and she is agreeable., if her troponin is negative she could be given the option to follow-up as an outpatient after she verbalized understanding and acceptance of the risks of major adverse cardiac event including and permanent disability. Diagnosis Primary Impression: Chest pain Additional Instructions: Call your enterprise software engineer tomorrow for further instructions. You're welcome to return to the emergency department any time for consideration of admission and further workup including cardiac catheterization. Disposition: 01 DISCHARGE HOME Condition: Stable Aman Levy MD Jul 22, 2017 04:12
[2017-07-22 04:15] LABS: AUTOMATED NEUTROPHIL # 3.3 TH/MM3 (1.8-7.7); BASOPHIL % 0.9 % (0.0-2.0); EOSINOPHIL # 0.2 TH/MM3 (0-0.4); EOSINOPHIL % 4.1 % (0.0-4.0); HEMATOCRIT 39.9 % (35.0-46.0); HEMOGLOBIN 13.4 GM/DL (11.6-15.3); LYMPH % 15.9 % (9.0-44.0); LYMPHOCYTE # 0.8 TH/MM3 (1.0-4.8); MEAN CELL VOLUME 93.7 FL (80.0-100.0); MEAN CORPUSCULAR HEMOGLOBIN 31.5 PG (27.0-34.0); MEAN CORPUSCULAR HGB CONC 33.6 % (32.0-36.0); MONO % 9.9 % (0.0-8.0); MONOCYTE # 0.5 TH/MM3 (0-0.9); NEUT % 69.2 % (16.0-70.0); PLATELET COUNT 181 TH/MM3 (150-450); RED BLOOD COUNT 4.25 MIL/MM3 (4.00-5.30); RED CELL DISTRIBUTION WIDTH 14.6 % (11.6-17.2); WHITE BLOOD COUNT 4.8 TH/MM3 (4.0-11.0)
--- NOTE | 2017-07-22 04:27 | RADRPT ---
EXAM DATE/TIME: 07/22/2017 03:55 [facility] COMPARISON: CHEST SINGLE AP, July 12, 2017, 13:47. INDICATIONS : Left sided chest pain radiating down left arm MEDICAL HISTORY : Hypercholesterolemia. Hypertension Congestive heart failure. GERD, Hypothyroid, Non-Hodgkins lymp vishnu SURGICAL HISTORY : Pacemaker. Tonsillectomy. Appendectomy. ENCOUNTER: Initial ACUITY: 1 day PAIN SCORE: 7/10 LOCATION: Bilateral chest FINDINGS: A single view of the chest demonstrates the lungs to be symmetrically aerated without evidence of mas s, infiltrate or effusion. The cardiomediastinal contours are unremarkable. Osseous structures are intact. There are multiple overlying electrocardiogram leads and oxygen tubing. The left subclavian t ransvenous pacer remains in place. CONCLUSION: No acute disease. Allan Everett MD on July 22, 2017 at 4:25 Board Certified Radiologist. This report was verified electronically.
[2017-07-22 04:49] LABS: BICARBONATE 23.7 MEQ/L (21.0-32.0); CALCIUM 8.4 MG/DL (8.5-10.1); CREATININE 0.67 MG/DL (0.50-1.00); MAGNESIUM 1.6 MG/DL (1.5-2.5); TROPONIN I 0.03 NG/ML (0.02-0.05)
[2017-07-22 04:58] LABS: INTERNATIONAL NORMALIZED RATIO 2.7 RATIO; PROTHROMBIN TIME - PATIENT 31.3 SEC (9.8-11.6)
--- NOTE | 2017-07-22 17:02 | EKG ---
Date Performed: 07/22/2017 Time Performed: 06:29:57 PTAGE: 87 years EKG: ELECTRONIC ATRIAL PACEMAKER MARKED LEFT AXIS DEVIATION ABNORMAL ECG PREVIOUS TRACING : 07/22/2017 04.00 Compared to prior tracing no significant change DOCTOR: Fitz Giang Interpretating Date/Time 07/22/2017 17:01:17
--- NOTE | 2017-07-22 17:06 | EKG ---
Date Performed: 07/22/2017 Time Performed: 04:00:24 PTAGE: 87 years EKG: ELECTRONIC ATRIAL PACEMAKER BORDERLINE LEFT AXIS DEVIATION INCOMPLETE RIGHT BUNDLE BRANCH B LOCK ABNORMAL RHYTHM ECG PREVIOUS TRACING : 07/16/2017 11.01 Compared to prior tracing no significant change DOCTOR: Fitz Giang Interpretating Date/Time 07/22/2017 17:05:39
== END 2017-07-22 08:36 | disposition home or self-care (01) ==
LOC: NEPC 03:43
DX: R07.9 Chest pain, unspecified (principal); E03.9 Hypothyroidism, unspecified; I11.0 Hypertensive heart disease with heart failure; I50.9 Heart failure, unspecified; I25.10 Atherosclerotic heart disease of native coronary artery without angina pectoris; Z79.01 Long term (current) use of anticoagulants
CPT/HCPCS: 71010; 80048; 83735; 84484; 85025; 85610; 85730; 93005; 99285